=== PATIENT | male | born 1940 | race Caucasian/White ===

== ENCOUNTER → 2016-05-01 | Outpatient (CLI) | payer MEDICARE, OTHER | LOC: MW.CHPOD 08:00 | PROVIDERS: ATTEND Podiatrist Foot & Ankle Surgery | DX: R26.9 Unspecified abnormalities of gait and mobility (principal); M79.673 Pain in unspecified foot; B35.1 Tinea unguium; L60.0 Ingrowing nail | CPT/HCPCS: 11721; 99203 ==

== ENCOUNTER → 2016-07-03 | Outpatient (CLI) | payer MEDICARE, OTHER | LOC: MW.CHPOD 08:00 | PROVIDERS: ATTEND Podiatrist Foot & Ankle Surgery | DX: M79.673 Pain in unspecified foot (principal); M20.5X2 Other deformities of toe(s) (acquired), left foot; M20.5X1 Other deformities of toe(s) (acquired), right foot; M20.41 Other hammer toe(s) (acquired), right foot; B35.1 Tinea unguium; I99.9 Unspecified disorder of circulatory system; L60.0 Ingrowing nail | CPT/HCPCS: 11721; G0463 ==

== ENCOUNTER 2017-02-19 11:21 | Inpatient (IN) | payer MEDICARE, OTHER ==
[2017-02-19] MEDS ORDERED: Sodium Chloride 0.9% 1,000 ML IV SCH (11:30)
--- NOTE | 2017-02-19 11:36 | EDM.PDOC ---
ED HPI GENERAL MEDICAL PROBLEM - General Chief Complaint: Respiratory Problem Stated Complaint: SHORTNESS OF BREATH Time Seen by Provider: 02/19/17 11:26 - History of Present Illness INITIAL COMMENTS - FREE TEXT/NARRATIVE: HISTORY AND PHYSICAL: History of present illness: 76-year-old white male with a [id number] history of smoking presents with concern of shortness of breath and cough 6 weeks he said multiple clinic visits and has been treated with antibiotics and steroids with no significant improvement he denies chest pain he has had productive phlegm related to his cough. He does have history of coronary artery disease with 5 vessel CABG Review of systems: As per history of present illness and below otherwise all systems reviewed and negative. Past medical history: As per history of present illness and as reviewed below otherwise noncontributory. Surgical history: As per history of present illness and as reviewed below otherwise noncontributory. Social history: No reported history of drug or alcohol abuse. Family history: As per history of present illness and as reviewed below otherwise noncontributory. Physical exam: HEENT: Atraumatic, normocephalic, pupils reactive, negative for conjunctival pallor or scleral icterus, mucous membranes moist, throat clear, neck supple, nontender, trachea midline. Lungs: Diminished and coarse bilaterally breath sounds equal bilaterally, chest nontender. Heart: S1S2, regular, negative for clicks, rubs, or JVD. Abdomen: Soft, nondistended, nontender. Negative for masses or hepatosplenomegaly. Negative for costovertebral tenderness. Pelvis: Stable nontender. Genitourinary: Deferred. Rectal: Deferred. Extremities: Atraumatic, negative for cords or calf pain. Neurovascular unremarkable. Neuro: Awake, alert, oriented. Cranial nerves II through XII unremarkable. Cerebellum unremarkable. Motor and sensory unremarkable throughout. Exam nonfocal. Diagnostics: CBC CMP PT/INR troponin EKG chest x-ray BNP influenza screen blood culture 2 UA ABG Therapeutics: IV O2 monitor Impression: #1 dyspnea #2 rule out pneumonia #3 history of coronary artery disease Definitive disposition and diagnosis as appropriate pending reevaluation and review of above. - Related Data Allergies Allergy/AdvReac Type Severity Reaction Status Date / Time No Known Allergies Allergy Verified 02/19/17 11:34 Home Meds: Home Meds Aspirin [Ecotrin] 81 mg PO DAILY 11/15/14 [History] Citalopram [Celexa] 20 mg PO DAILY 11/15/14 [History] Losartan [Cozaar] 100 mg PO DAILY 11/15/14 [History] Simvastatin 80 mg PO BEDTIME 11/15/14 [History] Terazosin [Hytrin] 2 mg PO BEDTIME 11/15/14 [History] Metoprolol Tartrate [Lopressor] 100 mg PO BID 11/17/14 [History] Multivit-Min/FA/Lycopene/Lut [Centrum Silver Tablet] 1 tab PO DAILY 11/17/14 [ History] Amoxicillin [Take Home: Amoxicillin 500 MG, 2 Cap Pack] 1 packet PO ONETIME [History] Past Medical History HEENT History: Reports: Impaired Vision Cardiovascular History: Reports: Automatic Implantable Cardioverter Defibrillators, Bypass, Pacemaker Other Respiratory History: History of Pneumonia 10/2014 Gastrointestinal History: Reports: GERD Genitourinary History: Reports: None Musculoskeletal History: Reports: Fracture Other Musculoskeletal History: pelvis fractur Neurological History: Reports: None Psychiatric History: Reports: None Endocrine/Metabolic History: Reports: None Hematologic History: Reports: None Immunologic History: Reports: None Oncologic (Cancer) History: Reports: None Dermatologic History: Reports: None - Infectious Disease History Infectious Disease History: Reports: C-Difficile, Mumps - Past Surgical History Cardiovascular Surgical History: Reports: Pacer Social & Family History - Family History Family Medical History: Noncontributory - Tobacco Use Smoking Status *Q: Former Smoker Years of Tobacco use: 25 Used Tobacco, but Quit: No Second Hand Smoke Exposure: No - Alcohol Use Days Per Week of Alcohol Use: 7 Number of Drinks Per Day: 1 Total Drinks Per Week: 7 - Recreational Drug Use Recreational Drug Use: No ED ROS GENERAL - Review of Systems Review Of Systems: ROS reveals no pertinent complaints other than HPI. ED EXAM, GENERAL - Physical Exam Exam: See Below (See dictation) Course - Vital Signs Last Recorded V/S: Last Vital Signs Temp 36.2 C 02/19/17 11:31 Pulse 72 02/19/17 12:18 Resp 20 02/19/17 12:48 BP 98/59 L 02/19/17 12:48 Pulse Ox 95 02/19/17 12:48 - Orders/Labs/Meds Orders: Active Orders 24 hr Category Date Time Status Cardiac Monitoring [RC] . DIRECTED Care 02/19/17 12:26 Active EKG Documentation Completion [RC] STAT Care 02/19/17 11:26 Active RT Aerosol Therapy [RC] ASDIRECTED Care 02/19/17 12:26 Active Chest 1V Frontal [CR] Stat Exams 02/19/17 11:27 Taken CULTURE BLOOD [BC] Stat Lab 02/19/17 11:45 Received CULTURE BLOOD [BC] Stat Lab 02/19/17 11:59 Received UA W/MICROSCOPIC [URIN] Stat Lab 02/19/17 11:26 Uncollected Levofloxacin/Dextrose 5%-Water [Levaquin in D5W 750 MG/ Med 02/19/17 12:49 Active 150 ML] 750 mg Premix Bag 1 bag IV ONETIME Sodium Chloride 0.9% [Normal Saline] 1,000 ml Med 02/19/17 11:30 Active IV STAT Blood Culture x2 Reflex Set [OM.PC] Stat Oth 02/19/17 11:26 Ordered Medication Orders Sodium Chloride (Normal Saline) 1,000 mls @ 125 mls/hr IV STAT STALIN Last Infusion: 02/19/17 12:52 Dose: 25 mls/hr Infusion: 02/19/17 12:28 Dose: 999 mls/hr Admin: 02/19/17 12:18 Dose: 125 mls/hr Levofloxacin/Dextrose 750 mg/ (Premix) 150 mls @ 100 mls/hr IV ONETIME ONE Stop: 02/19/17 14:18 Last Admin: 02/19/17 12:59 Dose: 100 mls/hr Labs: Laboratory Tests 02/19/17 02/19/17 02/19/17 Range/Units 11:45 11:45 11:45 WBC 15.68 H (4.0-11.0) K/uL RBC 5.41 (4.50-5.90) M/uL Hgb 16.8 (13.0-17.0) g/dL Hct 47.4 (38.0-50.0) % MCV 87.6 (80.0-98.0) fL MCH 31.1 (27.0-32.0) pg MCHC 35.4 (31.0-37.0) g/dL RDW Std Deviation 40.9 (28.0-62.0) fl RDW Coeff of [place] 13 (11.0-15.0) % Plt Count 154 (150-400) K/uL MPV 11.70 (7.40-12.00) fL Neut % (Auto) 78.9 (48.0-80.0) % Lymph % (Auto) 11.5 L (16.0-40.0) % [place] % (Auto) 9.4 (0.0-15.0) % Eos % (Auto) 0.1 (0.0-7.0) % Baso % (Auto) 0.1 (0.0-1.5) % Neut # (Auto) 12.4 H (1.4-5.7) K/uL Lymph # (Auto) 1.8 (0.6-2.4) K/uL [place] # (Auto) 1.5 H (0.0-0.8) K/uL Eos # (Auto) 0.0 (0.0-0.7) K/uL Baso # (Auto) 0.0 (0.0-0.1) K/uL Nucleated RBC % 0.0 /100WBC Nucleated RBCs # 0 K/uL INR 1.05 (0.86-1.11) ABG pH (7.35-7.45) ABG pCO2 (35-45) mmHG ABG pO2 (75-100) mmHG ABG HCO3 (22-26) mEq/L ABG Total CO2 ABG Base Excess (-2.0-2.0) Lactate (0.20-2.00) mmol/L Sodium 138 (136-146) mmol/L Potassium 4.0 (3.5-5.1) mmol/L Chloride 102 (98-110) mmol/L Carbon Dioxide 25 (21-31) mmol/L BUN 15 (6.0-23.0) mg/dL Creatinine 1.0 (0.6-1.5) mg/dL Est Cr Clr Drug Dosing 56.92 mL/min Estimated GFR (MDRD) > 60.0 ml/min Glucose 127 H (60-110) mg/dL Calcium 9.5 (8.8-10.8) mg/dL Total Bilirubin 1.5 (0.1-1.5) mg/dL AST 17 (5-40) IU/L ALT 19 (8-54) IU/L Alkaline Phosphatase 130 (40-150) Troponin I < 0.10 (0.0-0.29) NG/ML B-Natriuretic Peptide (<100) PG/ML Total Protein 6.9 (6.0-8.0) g/dL Albumin 3.7 (3.4-4.8) g/dL Globulin 3.2 (2.0-3.5) g/dL Albumin/Globulin Ratio 1.2 L (1.3-2.8) 02/19/17 02/19/17 02/19/17 Range/Units 11:45 11:54 11:54 WBC (4.0-11.0) K/uL RBC (4.50-5.90) M/uL Hgb (13.0-17.0) g/dL Hct (38.0-50.0) % MCV (80.0-98.0) fL MCH (27.0-32.0) pg MCHC (31.0-37.0) g/dL RDW Std Deviation (28.0-62.0) fl RDW Coeff of [place] (11.0-15.0) % Plt Count (150-400) K/uL MPV (7.40-12.00) fL Neut % (Auto) (48.0-80.0) % Lymph % (Auto) (16.0-40.0) % [place] % (Auto) (0.0-15.0) % Eos % (Auto) (0.0-7.0) % Baso % (Auto) (0.0-1.5) % Neut # (Auto) (1.4-5.7) K/uL Lymph # (Auto) (0.6-2.4) K/uL [place] # (Auto) (0.0-0.8) K/uL Eos # (Auto) (0.0-0.7) K/uL Baso # (Auto) (0.0-0.1) K/uL Nucleated RBC % /100WBC Nucleated RBCs # K/uL INR (0.86-1.11) ABG pH 7.481 H (7.35-7.45) ABG pCO2 37 (35-45) mmHG ABG pO2 26 L* (75-100) mmHG ABG HCO3 28 H (22-26) mEq/L ABG Total CO2 24.1 ABG Base Excess 4.3 H (-2.0-2.0) Lactate 1.4 (0.20-2.00) mmol/L Sodium (136-146) mmol/L Potassium (3.5-5.1) mmol/L Chloride (98-110) mmol/L Carbon Dioxide (21-31) mmol/L BUN (6.0-23.0) mg/dL Creatinine (0.6-1.5) mg/dL Est Cr Clr Drug Dosing mL/min Estimated GFR (MDRD) ml/min Glucose (60-110) mg/dL Calcium (8.8-10.8) mg/dL Total Bilirubin (0.1-1.5) mg/dL AST (5-40) IU/L ALT (8-54) IU/L Alkaline Phosphatase (40-150) Troponin I (0.0-0.29) NG/ML B-Natriuretic Peptide 896 H (<100) PG/ML Total Protein (6.0-8.0) g/dL Albumin (3.4-4.8) g/dL Globulin (2.0-3.5) g/dL Albumin/Globulin Ratio (1.3-2.8) Meds: Medications Generic Name Dose Route Start Last Admin Trade Name Freq PRN Reason Stop Dose Admin Sodium Chloride 1,000 mls @ 125 mls/hr 02/19/17 11:30 02/19/17 12:52 Normal Saline IV 25 mls/hr STAT STALIN Infusion Levofloxacin/Dextrose 750 mg/ 150 mls @ 100 mls/hr 02/19/17 12:49 02/19/17 12 :59 Premix IV 02/19/17 14:18 100 mls/hr ONETIME ONE Administration Discontinued Medications Generic Name Dose Route Start Last Admin Trade Name Freq PRN Reason Stop Dose Admin Albuterol/Ipratropium 3 ml 02/19/17 12:26 02/19/17 12:38 Duoneb 3.0-0.5 Mg/3 Ml NEB 02/19/17 12:27 3 ml ONETIME ONE Administration Departure - Departure Time of Disposition: 13:08 Disposition: Admitted As Inpatient 64 Condition: Good Clinical Impression: Hypoxemia Pneumonia Qualifiers: Pneumonia type: due to Haemophilus influenzae Laterality: unspecified laterality Lung location: unspecified part of lung Qualified Code(s): J14 - Pneumonia due to Hemophilus influenzae - Discharge Information Referrals: Jim Mandel MD [Primary Care Provider] - Forms: ED Department Discharge - My Orders Last 24 Hours: My Active Orders 02/19/17 11:26 EKG Documentation Completion [RC] STAT UA W/MICROSCOPIC [URIN] Stat Blood Culture x2 Reflex Set [OM.PC] Stat 02/19/17 11:27 Chest 1V Frontal [CR] Stat 02/19/17 11:30 Sodium Chloride 0.9% [Normal Saline] 1,000 ml IV STAT 02/19/17 11:45 CULTURE BLOOD [BC] Stat 02/19/17 11:59 CULTURE BLOOD [BC] Stat 02/19/17 12:26 Cardiac Monitoring [RC] . DIRECTED RT Aerosol Therapy [RC] ASDIRECTED 02/19/17 12:49 Levofloxacin/Dextrose 5%-Water [Levaquin in D5W 750 MG/150 ML] 750 mg Premix Bag 1 bag IV ONETIME - Assessment/Plan Last 24 Hours: My Active Orders 02/19/17 11:26 EKG Documentation Completion [RC] STAT UA W/MICROSCOPIC [URIN] Stat Blood Culture x2 Reflex Set [OM.PC] Stat 02/19/17 11:27 Chest 1V Frontal [CR] Stat 02/19/17 11:30 Sodium Chloride 0.9% [Normal Saline] 1,000 ml IV STAT 02/19/17 11:45 CULTURE BLOOD [BC] Stat 02/19/17 11:59 CULTURE BLOOD [BC] Stat 02/19/17 12:26 Cardiac Monitoring [RC] . DIRECTED RT Aerosol Therapy [RC] ASDIRECTED 02/19/17 12:49 Levofloxacin/Dextrose 5%-Water [Levaquin in D5W 750 MG/150 ML] 750 mg Premix Bag 1 bag IV ONETIME
[2017-02-19] MEDS ORDERED: Albuterol/Ipratropium 3.0-0.5 MG/3 ML Neb Soln NEB ONE (12:26)
[2017-02-19 12:38] LABS: CHLORIDE,CL 102 mmol/L (98-110); SODIUM,NA 138 mmol/L (136-146)
[2017-02-19] MEDS ORDERED: Levofloxacin/Dextrose 5%-Water 750 MG in Premix Bag 1 BAG IV ONE (12:49)
--- NOTE | 2017-02-19 14:25 | CR ---
EXAM DATE: 02/19/17 PATIENT'S AGE: 76 Patient: SHANNON MAYS Facility: [place], [place] Site . Site : [id number] Study: XRay Chest [id number] 12:23:44 PM Ordering Physician: Mauricio Uribe Final Report: INDICATION: Chest pain; shortness of breath; cough for the last 6 weeks. Comparison: Chest radiograph 01/20/2017. Technique: Single portable AP chest. Findings: Stable cardiomegaly. Implanted cardiac defibrillator in place. Infiltrates right lower lobe. No CHF or pneumothorax. No evidence of pleural effusion. Impression: Infiltrates right lower lobe more prominent when compared to 01/20/2017. Dictated by Beatrice Kumar MD @ Feb 19 2017 12:46PM (Electronic Signature) Report Signed by Proxy. [facility] CENTERShlomo
--- NOTE | 2017-02-19 14:28 | PCM.HP ---
H&P History of Present Illness - General Date of Service: 02/19/17 Admit Problem/Dx: Admission Diagnosis/Problem Admission Diagnosis/Problem Hypoxemia Source of Information: Patient History Limitations: Reports: No Limitations - History of Present Illness Initial Comments - Free Text/Narative: 76-year-old male presenting to emergency department with chief complaint of cough and shortness of breath 2 days with PMH of CAD, CABGx5 2013 with pacer, CHF, hypertension, and hyperlipidemia Patient states that his cough initially began approximate 6 weeks ago. He saw a nurse practitioner who placed him on doxycycline. States that he did not improve significantly. He then saw the same nurse practitioner again and was placed on another antibiotic plus prednisone and albuterol. This seemed to improve his symptoms somewhat but then on 02/17/17 his cough and shortness breath became worse again with associated chills and diaphoresis. This has increasingly gotten worse until he visited the emergency room today. Reports productive cough with yellow-shivani green sputum production. States that he was on home oxygen up until 3 months ago. He was on home oxygen for approximately 2 years secondary to a pneumonia. He has never been diagnosed with COPD but has a 30+ pack year smoking history. He quit 14 years ago. He denies any chest pain, palpitations, increased fluid retention, nausea, vomiting, diarrhea, syncopal episodes, or focal neurologic deficits. In the emergency department he was found to have leukocytosis of 15 K, CMP and lactate unremarkable, chest x-ray revealed a right lower lobe infiltrate. He was initially mildly hypotensive with a blood pressure of 86/45 which resolved with 1 L NS. Hypoxic requiring 2 L n/c to 94%. Influenza swab was negative. Patient's last echocardiogram for a CHF was approximately 2 years ago. He is on aspirin daily. Patient was admitted for similar symptoms in 10/2014. Patient admitted to inpatient for community-acquired pneumonia. - Related Data Allergies/Adverse Reactions: Allergies Allergy/AdvReac Type Severity Reaction Status Date / Time No Known Allergies Allergy Verified 02/19/17 14:52 Home Medications: Home Meds Aspirin [Ecotrin] 81 mg PO DAILY 11/15/14 [History] Citalopram [Celexa] 20 mg PO DAILY 11/15/14 [History] Losartan [Cozaar] 100 mg PO DAILY 11/15/14 [History] Simvastatin 80 mg PO BEDTIME 11/15/14 [History] Terazosin [Hytrin] 2 mg PO BEDTIME 11/15/14 [History] Metoprolol Tartrate [Lopressor] 100 mg PO BID 11/17/14 [History] Multivit-Min/FA/Lycopene/Lut [Centrum Silver Tablet] 1 tab PO DAILY 11/17/14 [ History] Amoxicillin [Take Home: Amoxicillin 500 MG, 2 Cap Pack] 1 packet PO ONETIME [History] Past Medical History HEENT History: Reports: Impaired Vision Cardiovascular History: Reports: Automatic Implantable Cardioverter Defibrillators, Bypass, Pacemaker Other Respiratory History: History of Pneumonia 10/2014 Gastrointestinal History: Reports: GERD Genitourinary History: Reports: None Musculoskeletal History: Reports: Fracture Other Musculoskeletal History: pelvis fractur Neurological History: Reports: None Psychiatric History: Reports: None Endocrine/Metabolic History: Reports: None Hematologic History: Reports: None Immunologic History: Reports: None Oncologic (Cancer) History: Reports: None Dermatologic History: Reports: None - Infectious Disease History Infectious Disease History: Reports: C-Difficile, Mumps - Past Surgical History Cardiovascular Surgical History: Reports: Pacer Social & Family History - Family History Family Medical History: Noncontributory - Tobacco Use Smoking Status *Q: Former Smoker Years of Tobacco use: 25 Used Tobacco, but Quit: No Month Tobacco Last Used: 13 years ago quit Second Hand Smoke Exposure: No - Caffeine Use Caffeine Use: Reports: Coffee, Soda - Alcohol Use Days Per Week of Alcohol Use: 7 Number of Drinks Per Day: 1 Total Drinks Per Week: 7 - Recreational Drug Use Recreational Drug Use: No H&P Review of Systems - Review of Systems: Review Of Systems: See Below Exam - Exam Exam: See Below - Vital Signs Vital Signs: Last Vital Signs Temp 97.1 F 02/19/17 11:31 Pulse 72 02/19/17 12:18 Resp 21 H 02/19/17 13:00 BP 98/59 L 02/19/17 13:00 Pulse Ox 95 02/19/17 13:00 Weight: 74.6 kg - Exam Quality Assessment: Supplemental Oxygen, DVT Prophylaxis General: Alert, Oriented, Cooperative HEENT: Conjunctiva Clear, EACs Clear, EOMI, Hearing Intact, Mucosa Moist & [place] , Nares Patent, Normal Nasal Septum, Posterior Pharynx Clear, PERRLA Neck: Supple, Trachea Midline. No: JVD Lungs: Decreased Breath Sounds, Crackles, Rales, Wheezing Cardiovascular: Regular Rate, Regular Rhythm, Normal S1, Normal S2 GI/Abdominal Exam: Normal Bowel Sounds, Soft, Non-Tender, No Organomegaly, No Distention Back Exam: Normal Inspection Extremities: Normal Inspection, Normal Range of Motion, Non-Tender, No Pedal Edema, Normal Capillary Refill Peripheral Pulses: 2+: Radial (L), Radial (R), Posterior Tibial (L), Posterior Tibial (R), Dorsalis Pedis (L), Dorsalis Pedis (R) Skin: Warm, Dry, Intact Neurological: Cranial Nerves Intact Neuro Extensive - Mental Status: Alert, Oriented x3, Normal Mood/Affect, Normal Cognition Neuro Extensive - Motor, Sensory, Reflexes: CN II-XII Intact Psychiatric: Alert, Normal Affect, Normal Mood - Patient Data Result Diagrams: 02/19/17 11:45 02/19/17 11:45 *Q Meaningful Use (ADM) - VTE *Q VTE Criteria *Q: - Stroke *Q Stroke Criteria *Q: - AMI *Q AMI Criteria *Q: - Problem List (1) S/P CABG x 5 SNOMED Code(s): 817169778 ICD Code: Z95.1 - PRESENCE OF AORTOCORONARY BYPASS GRAFT Status: Chronic Priority: Medium Current Visit: Yes (2) Hypoxemia SNOMED Code(s): 549059490 ICD Code: R09.02 - HYPOXEMIA Status: Acute Priority: High Current Visit : Yes (3) Pneumonia SNOMED Code(s): 198043096 ICD Code: J18.9 - PNEUMONIA, UNSPECIFIED ORGANISM Status: Acute Priority : High Current Visit: Yes Qualifiers: Pneumonia type: due to unspecified organism Laterality: right Lung location: lower lobe of lung Qualified Code(s): J18.1 - Lobar pneumonia, unspecified organism (4) CHF (congestive heart failure) SNOMED Code(s): 24891530 ICD Code: I50.9 - HEART FAILURE, UNSPECIFIED Status: Chronic Priority: High Current Visit: No Qualifiers: Congestive heart failure type: unspecified congestive heart failure type Congestive heart failure chronicity: unspecified congestive heart failure chronicity Qualified Code(s): I50.9 - Heart failure, unspecified (5) Hypertension SNOMED Code(s): 43192628 ICD Code: I10 - ESSENTIAL (PRIMARY) HYPERTENSION Status: Chronic Priority : Medium Current Visit: Yes Qualifiers: Hypertension type: essential hypertension Qualified Code(s): I10 - Essential (primary) hypertension Problem List Initiated/Reviewed/Updated: Yes Orders Last 24hrs: Active Orders 24 hr Category Date Time Status CULTURE SPUTUM + SMEAR [RM] Stat Lab 02/19/17 13:58 Received Medication Orders Sodium Chloride (Normal Saline) 1,000 mls @ 125 mls/hr IV STAT STALIN Last Infusion: 02/19/17 12:52 Dose: 25 mls/hr Infusion: 02/19/17 12:28 Dose: 999 mls/hr Admin: 02/19/17 12:18 Dose: 125 mls/hr Assessment/Plan Comment:: 76 yo male admitted 02/19/17 for hypoxia secondary to RLL pneumonia with pmh of CHF, CABGx5, Htn, hyperlipidemia and former 30+ pack yr smoker. Pneumonia: RLL, secondary to recent multiple antibiotic use will treat with Zosyn, Levo, and Vanc. Blood cultures taken in ED, Duo-nebs q 4hrs. May need steroids but hold for now unless no improvement. CHF: Vol. depleted by exam, Will give IVF boluses now and watch carefully for overload, strict I&O, daily wt., Telemetry, Last echo 2 yrs ago will get new. CABGx5/CAD: Stable now, Telemetery, monitor, resume home meds when BP improved. Htn: Hypotensive in ED most likely secondary to dehydration. Hold home meds and monitor. Resume when normotensive. VTE proph: Heparin, SCD Dispo: 2-3 days pending improvement.
[2017-02-19] MEDS ORDERED: Ondansetron 4 MG Tab.DIS PO PRN (14:57)
[2017-02-19] MEDS ORDERED: Sodium Chloride 0.9% 500 ML IV ONE (15:05)
[2017-02-19] MEDS: Heparin Sodium 5,000 Units/ML Vial SUBCUT SCH ×2 (15:42→23:45)
[2017-02-19] MEDS: Piperacillin/Tazobactam 4.5 GM in Sodium Chloride 0.9% 100 ML IV SCH ×2 (15:42→20:15)
[2017-02-19] MEDS ORDERED: Patient's Own Medication 1 Each PO SCH (16:00)
[2017-02-19] MEDS: Simvastatin 40 MG Tab PO SCH (20:14)
[2017-02-20] MEDS: Piperacillin/Tazobactam 4.5 GM in Sodium Chloride 0.9% 100 ML IV SCH ×4 (03:13→20:58)
[2017-02-20] MEDS: Albuterol/Ipratropium 3.0-0.5 MG/3 ML Neb Soln NEB PRN ×2 (04:39→18:00)
[2017-02-20 06:08] LABS: CHLORIDE,CL 105 mmol/L (98-110); SODIUM,NA 140 mmol/L (136-146)
[2017-02-20] MEDS: Heparin Sodium 5,000 Units/ML Vial SUBCUT SCH ×3 (06:10→22:12)
[2017-02-20] MEDS: Citalopram 20 MG Tab PO SCH (08:31)
[2017-02-20] MEDS: MEXILETINE 150 MG PO SCH (08:33)
[2017-02-20] MEDS ORDERED: Aspirin 325 MG Tab.EC PO SCH (09:00)
[2017-02-20] MEDS: Aspirin 81 MG Tab.EC PO SCH (09:03)
[2017-02-20] MEDS: Levofloxacin/Dextrose 5%-Water 750 MG in Premix Bag 1 BAG IV SCH (11:24)
--- NOTE | 2017-02-20 11:33 | PCM.PN ---
- Review of Systems Systems Review Comment:: feeling better. - Patient Data Vitals - Most Recent: Last Vital Signs Temp 36.3 C 02/20/17 08:00 Pulse 62 02/20/17 08:00 Resp 20 02/20/17 08:00 BP 102/57 L 02/20/17 08:00 Pulse Ox 96 02/20/17 08:00 Weight - Most Recent: 78.5 kg I&O - Last 24 Hours: Intake & Output 02/19/17 02/20/17 02/20/17 22:59 06:59 14:59 Intake Total 825 1150 Output Total 50 750 Balance 775 400 Lab Results Last 24 Hours: Laboratory Results - last 24 hr 02/19/17 02/20/17 02/20/17 Range/Units 14:20 04:59 04:59 WBC 10.64 (4.0-11.0) K/uL RBC 4.63 (4.50-5.90) M/uL Hgb 14.1 (13.0-17.0) g/dL Hct 40.8 (38.0-50.0) % MCV 88.1 (80.0-98.0) fL MCH 30.5 (27.0-32.0) pg MCHC 34.6 (31.0-37.0) g/dL RDW Std Deviation 41.3 (28.0-62.0) fl RDW Coeff of Alva 13 (11.0-15.0) % Plt Count 119 L (150-400) K/uL MPV 11.30 (7.40-12.00) fL Nucleated RBC % 0.0 /100WBC Nucleated RBCs # 0 K/uL Sodium 140 (136-146) mmol/L Potassium 4.0 (3.5-5.1) mmol/L Chloride 105 (98-110) mmol/L Carbon Dioxide 27 (21-31) mmol/L BUN 13 (6.0-23.0) mg/dL Creatinine 0.9 (0.6-1.5) mg/dL Est Cr Clr Drug Dosing 63.09 mL/min Estimated GFR (MDRD) > 60.0 ml/min Glucose 116 H (60-110) mg/dL Calcium 8.8 (8.8-10.8) mg/dL Magnesium 1.6 (1.5-2.3) mEq/L Total Bilirubin 1.2 (0.1-1.5) mg/dL AST 14 (5-40) IU/L ALT 15 (8-54) IU/L Alkaline Phosphatase 135 (40-150) Total Protein 5.5 L (6.0-8.0) g/dL Albumin 3.0 L (3.4-4.8) g/dL Globulin 2.5 (2.0-3.5) g/dL Albumin/Globulin Ratio 1.2 L (1.3-2.8) Urine Color DARK YELLOW Urine Appearance CLEAR Urine pH 6.0 (5.0-8.0) Ur Specific [place] >= 1.030 (1.001-1.035) Urine Protein NEGATIVE (NEGATIVE) mg/dL Urine Glucose (UA) NEGATIVE (NEGATIVE) mg/dL Urine Ketones NEGATIVE (NEGATIVE) mg/dL Urine Occult Blood SMALL H (NEGATIVE) Urine Nitrite NEGATIVE (NEGATIVE) Urine Bilirubin MODERATE H (NEGATIVE) Urine Ictotest NEGATIVE Urine Urobilinogen 1.0 (<2.0) EU/dL Ur Leukocyte Esterase TRACE (NEGATIVE) Urine RBC 3-6 (0-2/HPF) Urine WBC 4-8 (0-5/HPF) Ur Epithelial Cells OCCASIONAL (NONE-FEW) Urine Bacteria RARE (NEGATIVE) Urine Mucus MODERATE (NONE-MOD) Urine Yeast RARE Mahad Results Last 24 Hours: Microbiology 02/19/17 13:58 Gram Stain - Preliminary Sputum - Expectorated Med Orders - Current: Current Medications Acetaminophen (Tylenol) 650 mg PO Q4H PRN PRN Reason: Pain (Mild 1-3)/fever Albuterol/Ipratropium (Duoneb 3.0-0.5 Mg/3 Ml) 3 ml NEB Q4HRRT PRN PRN Reason: Shortness Of Breath/wheezing Last Admin: 02/20/17 04:39 Dose: 3 ml Aspirin (Halfprin) 81 mg PO DAILY [facility] Last Admin: 02/20/17 09:03 Dose: 81 mg Citalopram Hydrobromide (Celexa) 20 mg PO DAILY [facility] Last Admin: 02/20/17 08:31 Dose: 20 mg Heparin Sodium (Porcine) (Heparin Sodium) 5,000 units SUBCUT Q8H [facility] Last Admin: 02/20/17 06:10 Dose: 5,000 units Levofloxacin/Dextrose 750 mg/ (Premix) 150 mls @ 100 mls/hr IV Q24H [facility] Last Admin: 02/20/17 11:24 Dose: 100 mls/hr Piperacillin Sod/Tazobactam (Sod 4.5 gm/ Sodium Chloride) 100 mls @ 100 mls/hr IV Q6H [facility] Last Admin: 02/20/17 08:33 Dose: 100 mls/hr Vancomycin HCl 1.25 gm/ Sodium (Chloride) 250 mls @ 166.667 mls/hr IV Q12H [facility] Last Admin: 02/20/17 04:35 Dose: 166.667 mls/hr Ondansetron HCl (Zofran Odt) 4 mg PO Q4H PRN PRN Reason: nausea, able to take PO Mexiletine 150 Mg (Capsule*Pt Own Med*) 1 each PO DAILY@0900 [facility] Last Admin: 02/20/17 08:33 Dose: 1 each Simvastatin (Zocor) 80 mg PO BEDTIME [facility] Last Admin: 02/19/17 20:14 Dose: 80 mg Vancomycin HCl (Pharmacy To Dose - Vancomycin) 1 dose .XX ASDIRECTED [facility] Discontinued Medications Albuterol/Ipratropium (Duoneb 3.0-0.5 Mg/3 Ml) 3 ml NEB ONETIME ONE Stop: 02/19/17 12:27 Last Admin: 02/19/17 12:38 Dose: 3 ml Aspirin (Ecotrin) 81 mg PO DAILY [facility] Sodium Chloride (Normal Saline) 1,000 mls @ 125 mls/hr IV STAT [facility] Last Infusion: 02/19/17 12:52 Dose: 25 mls/hr Levofloxacin/Dextrose 750 mg/ (Premix) 150 mls @ 100 mls/hr IV ONETIME ONE Stop: 02/19/17 14:18 Last Admin: 02/19/17 12:59 Dose: 100 mls/hr Sodium Chloride (Normal Saline) 500 mls @ 125 mls/hr IV STAT ONE Stop: 02/19/17 19:04 Last Admin: 02/19/17 15:43 Dose: 125 mls/hr Patient Own Medication (Ptom) 1 each PO TID [facility] Last Admin: 02/19/17 16:35 Dose: Not Given - Exam General: Alert, Oriented Lungs: Normal Respiratory Effort, Rhonchi (right lung) Cardiovascular: Regular Rate, Regular Rhythm GI/Abdominal Exam: Soft, Non-Tender Skin: Warm, Dry, Intact Neurological: No New Focal Deficit - Problem List Review Problem List Initiated/Reviewed/Updated: Yes - Plan Plan:: 76 yo male admitted for RLL pneumonia that failed outpatient management. Pneumonia: continue Zosyn, Levaquin, and Vancomycin. Blood cultures taken in ED , Duo-nebs q 4hrs. CHF: stable CABGx5/CAD: Stable Htn: Holding home meds due to hypotension on admission, normotensive now. VTE proph: Heparin, SCD Dispo: 2-3 days pending improvement.
[2017-02-20] MEDS: Simvastatin 40 MG Tab PO SCH (20:58)
[2017-02-20] MEDS: Benzonatate 100 MG Cap PO PRN (20:58)
[2017-02-21] MEDS: Benzonatate 100 MG Cap PO PRN ×2 (02:31→20:22)
[2017-02-21] MEDS: Piperacillin/Tazobactam 4.5 GM in Sodium Chloride 0.9% 100 ML IV SCH ×4 (02:32→20:22)
[2017-02-21 05:04] LABS: CHLORIDE,CL 106 mmol/L (98-110); SODIUM,NA 139 mmol/L (136-146)
[2017-02-21] MEDS: Heparin Sodium 5,000 Units/ML Vial SUBCUT SCH ×3 (06:28→23:10)
[2017-02-21] MEDS: Aspirin 81 MG Tab.EC PO SCH (08:14)
[2017-02-21] MEDS: Citalopram 20 MG Tab PO SCH (08:14)
[2017-02-21] MEDS: MEXILETINE 150 MG PO SCH (08:16)
--- NOTE | 2017-02-21 08:30 | PCM.PN ---
- General Info Admission Dx/Problem (Free Text): No overnight events. Patient had minimal pain at admission but he states it continues to improve. He is tolerating clear liquid diet. He is passing gas. He complains of diarrhea and states he had 8 watery stools yesterday and last night. No other complaints. - Patient Data Vitals - Most Recent: Last Vital Signs Temp 36.6 C 02/21/17 08:00 Pulse 86 02/21/17 08:00 Resp 18 02/21/17 08:00 BP 141/64 H 02/21/17 08:00 Pulse Ox 91 L 02/21/17 08:00 Weight - Most Recent: 78 kg I&O - Last 24 Hours: Intake & Output 02/20/17 02/21/17 02/21/17 22:59 06:59 14:59 Intake Total 688 1090 Output Total 625 520 Balance 63 570 Lab Results Last 24 Hours: Laboratory Results - last 24 hr 02/21/17 02/21/17 02/21/17 Range/Units 04:30 04:30 04:30 WBC 7.83 (4.0-11.0) K/uL RBC 4.37 L (4.50-5.90) M/uL Hgb 13.3 (13.0-17.0) g/dL Hct 38.7 (38.0-50.0) % MCV 88.6 (80.0-98.0) fL MCH 30.4 (27.0-32.0) pg MCHC 34.4 (31.0-37.0) g/dL RDW Std Deviation 41.4 (28.0-62.0) fl RDW Coeff of Alva 13 (11.0-15.0) % Plt Count 108 L (150-400) K/uL MPV 11.00 (7.40-12.00) fL Nucleated RBC % 0.0 /100WBC Nucleated RBCs # 0 K/uL Sodium 139 (136-146) mmol/L Potassium 3.9 (3.5-5.1) mmol/L Chloride 106 (98-110) mmol/L Carbon Dioxide 26 (21-31) mmol/L BUN 9 (6.0-23.0) mg/dL Creatinine 0.8 (0.6-1.5) mg/dL Est Cr Clr Drug Dosing 70.97 mL/min Estimated GFR (MDRD) > 60.0 ml/min Glucose 109 (60-110) mg/dL Calcium 8.4 L (8.8-10.8) mg/dL Total Bilirubin 0.9 (0.1-1.5) mg/dL AST 14 (5-40) IU/L ALT 16 (8-54) IU/L Alkaline Phosphatase 93 (40-150) Total Protein 4.8 L (6.0-8.0) g/dL Albumin 3.0 L (3.4-4.8) g/dL Globulin 1.8 L (2.0-3.5) g/dL Albumin/Globulin Ratio 1.7 (1.3-2.8) Vancomycin Trough 10.2 (5-15) ug/mL Med Orders - Current: Current Medications Acetaminophen (Tylenol) 650 mg PO Q4H PRN PRN Reason: Pain (Mild 1-3)/fever Albuterol/Ipratropium (Duoneb 3.0-0.5 Mg/3 Ml) 3 ml NEB Q4HRRT PRN PRN Reason: Shortness Of Breath/wheezing Last Admin: 02/20/17 18:00 Dose: 3 ml Aspirin (Halfprin) 81 mg PO DAILY [facility] Last Admin: 02/21/17 08:14 Dose: 81 mg Benzonatate (Tessalon Perles) 100 mg PO QID PRN PRN Reason: Cough Last Admin: 02/21/17 02:31 Dose: 100 mg Citalopram Hydrobromide (Celexa) 20 mg PO DAILY [facility] Last Admin: 02/21/17 08:14 Dose: 20 mg Heparin Sodium (Porcine) (Heparin Sodium) 5,000 units SUBCUT Q8H [facility] Last Admin: 02/21/17 06:28 Dose: 5,000 units Levofloxacin/Dextrose 750 mg/ (Premix) 150 mls @ 100 mls/hr IV Q24H [facility] Last Admin: 02/20/17 11:24 Dose: 100 mls/hr Piperacillin Sod/Tazobactam (Sod 4.5 gm/ Sodium Chloride) 100 mls @ 100 mls/hr IV Q6H [facility] Last Admin: 02/21/17 08:15 Dose: 100 mls/hr Vancomycin HCl 1.25 gm/ Sodium (Chloride) 250 mls @ 166.667 mls/hr IV Q12H [facility] Last Admin: 02/21/17 05:19 Dose: 166.667 mls/hr Ondansetron HCl (Zofran Odt) 4 mg PO Q4H PRN PRN Reason: nausea, able to take PO Mexiletine 150 Mg (Capsule*Pt Own Med*) 1 each PO DAILY@0900 [facility] Last Admin: 02/21/17 08:16 Dose: 1 each Simvastatin (Zocor) 80 mg PO BEDTIME [facility] Last Admin: 02/20/17 20:58 Dose: 80 mg Vancomycin HCl (Pharmacy To Dose - Vancomycin) 1 dose .XX ASDIRECTED [facility] Discontinued Medications Albuterol/Ipratropium (Duoneb 3.0-0.5 Mg/3 Ml) 3 ml NEB ONETIME ONE Stop: 02/19/17 12:27 Last Admin: 02/19/17 12:38 Dose: 3 ml Aspirin (Ecotrin) 81 mg PO DAILY [facility] Sodium Chloride (Normal Saline) 1,000 mls @ 125 mls/hr IV STAT [facility] Last Infusion: 02/19/17 12:52 Dose: 25 mls/hr Levofloxacin/Dextrose 750 mg/ (Premix) 150 mls @ 100 mls/hr IV ONETIME ONE Stop: 02/19/17 14:18 Last Admin: 02/19/17 12:59 Dose: 100 mls/hr Sodium Chloride (Normal Saline) 500 mls @ 125 mls/hr IV STAT ONE Stop: 02/19/17 19:04 Last Admin: 02/19/17 15:43 Dose: 125 mls/hr Patient Own Medication (Ptom) 1 each PO TID [facility] Last Admin: 02/19/17 16:35 Dose: Not Given - Plan Plan:: 76 yo male admitted for RLL pneumonia that failed outpatient management. Pneumonia: continue Zosyn, Levaquin, and Vancomycin. Blood cultures taken in ED , Duo-nebs q 4hrs. CHF: stable CABGx5/CAD: Stable Htn: Holding home meds due to hypotension on admission, normotensive now. VTE proph: Heparin, SCD Dispo: 2-3 days pending improvement.
--- NOTE | 2017-02-21 09:32 | PCM.PN ---
- General Info Date of Service: 02/21/17 Admission Dx/Problem (Free Text): Pneumonia, dyspnea Subjective Update: Reports not feeling well this morning, "I had a rough night, coughing all night long." Denies chest pain and SOB has improved but continues with ambulation. Coughing up clear to yellow phlegm. When he coughs, he has some pleuritic chest pain. No other concerns or abdominal pain. Functional Status: Reports: Pain Controlled, Tolerating Diet, Ambulating, Urinating - Review of Systems General: Reports: Malaise. Denies: Fever HEENT: Reports: No Symptoms. Denies: Headaches, Sinus Congestion, Sore Throat Pulmonary: Reports: Shortness of Breath (improving), Pleuritic Chest Pain (with cough ), Cough, Sputum (yellow to clear), Wheezing. Denies: Hemoptysis Cardiovascular: Reports: No Symptoms. Denies: Chest Pain, Palpitations, Edema Gastrointestinal: Denies: Abdominal Pain, Diarrhea, Nausea, Vomiting Genitourinary: Reports: No Symptoms. Denies: Dysuria, Frequency, Burning, Pain Neurological: Reports: No Symptoms. Denies: Confusion Psychiatric: Reports: No Symptoms. Denies: Confusion - Patient Data Vitals - Most Recent: Last Vital Signs Temp 97.8 F 02/21/17 08:00 Pulse 86 02/21/17 08:00 Resp 18 02/21/17 08:00 BP 141/64 H 02/21/17 08:00 Pulse Ox 91 L 02/21/17 08:00 Weight - Most Recent: 78 kg I&O - Last 24 Hours: Intake & Output 02/20/17 02/21/17 02/21/17 22:59 06:59 14:59 Intake Total 688 1090 100 Output Total 625 520 Balance 63 570 100 Lab Results Last 24 Hours: Laboratory Results - last 24 hr 02/21/17 02/21/17 02/21/17 Range/Units 04:30 04:30 04:30 WBC 7.83 (4.0-11.0) K/uL RBC 4.37 L (4.50-5.90) M/uL Hgb 13.3 (13.0-17.0) g/dL Hct 38.7 (38.0-50.0) % MCV 88.6 (80.0-98.0) fL MCH 30.4 (27.0-32.0) pg MCHC 34.4 (31.0-37.0) g/dL RDW Std Deviation 41.4 (28.0-62.0) fl RDW Coeff of Alva 13 (11.0-15.0) % Plt Count 108 L (150-400) K/uL MPV 11.00 (7.40-12.00) fL Nucleated RBC % 0.0 /100WBC Nucleated RBCs # 0 K/uL Sodium 139 (136-146) mmol/L Potassium 3.9 (3.5-5.1) mmol/L Chloride 106 (98-110) mmol/L Carbon Dioxide 26 (21-31) mmol/L BUN 9 (6.0-23.0) mg/dL Creatinine 0.8 (0.6-1.5) mg/dL Est Cr Clr Drug Dosing 70.97 mL/min Estimated GFR (MDRD) > 60.0 ml/min Glucose 109 (60-110) mg/dL Calcium 8.4 L (8.8-10.8) mg/dL Total Bilirubin 0.9 (0.1-1.5) mg/dL AST 14 (5-40) IU/L ALT 16 (8-54) IU/L Alkaline Phosphatase 93 (40-150) Total Protein 4.8 L (6.0-8.0) g/dL Albumin 3.0 L (3.4-4.8) g/dL Globulin 1.8 L (2.0-3.5) g/dL Albumin/Globulin Ratio 1.7 (1.3-2.8) Vancomycin Trough 10.2 (5-15) ug/mL Mahad Results Last 24 Hours: Microbiology 02/19/17 13:58 Gram Stain - Final Sputum - Expectorated Sputum Culture - Final Normal Respiratory Lupe Med Orders - Current: Current Medications Acetaminophen (Tylenol) 650 mg PO Q4H PRN PRN Reason: Pain (Mild 1-3)/fever Albuterol/Ipratropium (Duoneb 3.0-0.5 Mg/3 Ml) 3 ml NEB Q4HRRT PRN PRN Reason: Shortness Of Breath/wheezing Last Admin: 02/20/17 18:00 Dose: 3 ml Aspirin (Halfprin) 81 mg PO DAILY [facility] Last Admin: 02/21/17 08:14 Dose: 81 mg Benzonatate (Tessalon Perles) 100 mg PO QID PRN PRN Reason: Cough Last Admin: 02/21/17 02:31 Dose: 100 mg Citalopram Hydrobromide (Celexa) 20 mg PO DAILY [facility] Last Admin: 02/21/17 08:14 Dose: 20 mg Heparin Sodium (Porcine) (Heparin Sodium) 5,000 units SUBCUT Q8H [facility] Last Admin: 02/21/17 06:28 Dose: 5,000 units Levofloxacin/Dextrose 750 mg/ (Premix) 150 mls @ 100 mls/hr IV Q24H [facility] Last Admin: 02/20/17 11:24 Dose: 100 mls/hr Piperacillin Sod/Tazobactam (Sod 4.5 gm/ Sodium Chloride) 100 mls @ 100 mls/hr IV Q6H [facility] Last Admin: 02/21/17 08:15 Dose: 100 mls/hr Vancomycin HCl 1.25 gm/ Sodium (Chloride) 250 mls @ 166.667 mls/hr IV Q12H [facility] Last Admin: 02/21/17 05:19 Dose: 166.667 mls/hr Ondansetron HCl (Zofran Odt) 4 mg PO Q4H PRN PRN Reason: nausea, able to take PO Mexiletine 150 Mg (Capsule*Pt Own Med*) 1 each PO DAILY@0900 [facility] Last Admin: 02/21/17 08:16 Dose: 1 each Simvastatin (Zocor) 80 mg PO BEDTIME [facility] Last Admin: 02/20/17 20:58 Dose: 80 mg Vancomycin HCl (Pharmacy To Dose - Vancomycin) 1 dose .XX ASDIRECTED [facility] Discontinued Medications Albuterol/Ipratropium (Duoneb 3.0-0.5 Mg/3 Ml) 3 ml NEB ONETIME ONE Stop: 02/19/17 12:27 Last Admin: 02/19/17 12:38 Dose: 3 ml Aspirin (Ecotrin) 81 mg PO DAILY [facility] Sodium Chloride (Normal Saline) 1,000 mls @ 125 mls/hr IV STAT [facility] Last Infusion: 02/19/17 12:52 Dose: 25 mls/hr Levofloxacin/Dextrose 750 mg/ (Premix) 150 mls @ 100 mls/hr IV ONETIME ONE Stop: 02/19/17 14:18 Last Admin: 02/19/17 12:59 Dose: 100 mls/hr Sodium Chloride (Normal Saline) 500 mls @ 125 mls/hr IV STAT ONE Stop: 02/19/17 19:04 Last Admin: 02/19/17 15:43 Dose: 125 mls/hr Patient Own Medication (Ptom) 1 each PO TID [facility] Last Admin: 02/19/17 16:35 Dose: Not Given - Exam General: Alert, Oriented, Cooperative, No Acute Distress Neck: Supple Lungs: Normal Respiratory Effort, Decreased Breath Sounds Cardiovascular: Regular Rate, Regular Rhythm, No Murmurs GI/Abdominal Exam: Normal Bowel Sounds, Soft, Non-Tender, No Organomegaly, No Distention, No Abnormal Bruit, No Mass, Pelvis Stable Extremities: Normal Inspection, Normal Range of Motion, Non-Tender, No Pedal Edema, Normal Capillary Refill Neurological: No New Focal Deficit Psy/Mental Status: Alert, Normal Affect, Normal Mood - Problem List & Annotations (1) Hypoxemia SNOMED Code(s): 057460935 Code(s): R09.02 - HYPOXEMIA Status: Acute Priority: High Current Visit : Yes (2) Pneumonia SNOMED Code(s): 591233103 Code(s): J18.9 - PNEUMONIA, UNSPECIFIED ORGANISM Status: Acute Priority: High Current Visit: Yes Qualifiers: Pneumonia type: due to unspecified organism Laterality: right Lung location: lower lobe of lung Qualified Code(s): J18.1 - Lobar pneumonia, unspecified organism (3) Hypertension SNOMED Code(s): 99415546 Code(s): I10 - ESSENTIAL (PRIMARY) HYPERTENSION Status: Chronic Priority : Medium Current Visit: Yes Qualifiers: Hypertension type: essential hypertension Qualified Code(s): I10 - Essential (primary) hypertension (4) S/P CABG x 5 SNOMED Code(s): 908757805 Code(s): Z95.1 - PRESENCE OF AORTOCORONARY BYPASS GRAFT Status: Chronic Priority: Medium Current Visit: Yes (5) Failure of outpatient treatment SNOMED Code(s): 464652576 Code(s): Z78.9 - OTHER SPECIFIED HEALTH STATUS Status: Acute Current Visit: No (6) CHF (congestive heart failure) SNOMED Code(s): 14982760 Code(s): I50.9 - HEART FAILURE, UNSPECIFIED Status: Chronic Priority: High Current Visit: No Qualifiers: Congestive heart failure type: unspecified congestive heart failure type Congestive heart failure chronicity: unspecified congestive heart failure chronicity Qualified Code(s): I50.9 - Heart failure, unspecified - Problem List Review Problem List Initiated/Reviewed/Updated: Yes - My Orders Last 24 Hours: My Active Orders 02/21/17 09:30 Communication Order [RC] PRN - Plan Plan:: 76 yo male admitted for RLL pneumonia that failed outpatient management. 1. Pneumonia: Will de-escalate today and stop Vancomycin. Continue Zosyn and Levaquin. Blood cultures negative x 1 and sputum culture reveals normal respiratory lupe. Continue Duo-nebs q 4hrs. 6 months ago he was taken off oxygen and doing well at home. He may require oxygen again at home after this. Room air challenge ordered today. 2. CHF: stable No edema or chest pain. 3. CABGx5/CAD: Stable. No chest pain Continue ASA 4. Htn: normotensive now. Will slowly restart home medications. Will start Metoprolol 100 mg BID today and monitor. VTE proph: Heparin Dispo:possible DC in am.
[2017-02-21] MEDS: Levofloxacin/Dextrose 5%-Water 750 MG in Premix Bag 1 BAG IV SCH (11:12)
[2017-02-21] MEDS: Metoprolol Tartrate 50 MG Tab PO SCH ×2 (12:47→16:18)
--- NOTE | 2017-02-21 18:15 | ECHO ---
The echocardiogram report can be seen in this patient's EMR (electronic medical record) in the Report section. The report has also been scanned into PACS and can be seen there. LILI
[2017-02-21] MEDS: Simvastatin 40 MG Tab PO SCH (20:22)
[2017-02-21] MEDS: Acetaminophen 325 MG Tab PO PRN (20:22)
[2017-02-21] MEDS: Terazosin 1 MG Cap PO SCH (20:26)
[2017-02-22] MEDS: Benzonatate 100 MG Cap PO PRN (02:31)
[2017-02-22] MEDS: Piperacillin/Tazobactam 4.5 GM in Sodium Chloride 0.9% 100 ML IV SCH ×4 (02:31→21:29)
[2017-02-22 06:04] LABS: CHLORIDE,CL 108 mmol/L (98-110); SODIUM,NA 142 mmol/L (136-146)
[2017-02-22] MEDS: Heparin Sodium 5,000 Units/ML Vial SUBCUT SCH ×3 (06:16→23:19)
[2017-02-22] MEDS: Acetaminophen 325 MG Tab PO PRN (06:21)
[2017-02-22] MEDS: Metoprolol Tartrate 50 MG Tab PO SCH ×2 (08:53→17:12)
[2017-02-22] MEDS: Aspirin 81 MG Tab.EC PO SCH (08:54)
[2017-02-22] MEDS: Citalopram 20 MG Tab PO SCH (08:54)
[2017-02-22] MEDS: MEXILETINE 150 MG PO SCH (08:55)
[2017-02-22] MEDS: Levofloxacin/Dextrose 5%-Water 750 MG in Premix Bag 1 BAG IV SCH (11:20)
--- NOTE | 2017-02-22 12:21 | PCM.PN ---
- Review of Systems Systems Review Comment:: reports coughing fit last night - Patient Data Vitals - Most Recent: Last Vital Signs Temp 36.1 C 02/22/17 12:00 Pulse 73 02/22/17 12:00 Resp 20 02/22/17 12:00 BP 110/73 02/22/17 12:00 Pulse Ox 95 02/22/17 12:00 Weight - Most Recent: 78 kg I&O - Last 24 Hours: Intake & Output 02/21/17 02/22/17 02/22/17 22:59 06:59 14:59 Intake Total 670 500 100 Output Total 300 400 Balance 370 100 100 Lab Results Last 24 Hours: Laboratory Results - last 24 hr 02/22/17 02/22/17 Range/Units 04:49 04:49 WBC 8.05 (4.0-11.0) K/uL RBC 4.49 L (4.50-5.90) M/uL Hgb 13.7 (13.0-17.0) g/dL Hct 40.1 (38.0-50.0) % MCV 89.3 (80.0-98.0) fL MCH 30.5 (27.0-32.0) pg MCHC 34.2 (31.0-37.0) g/dL RDW Std Deviation 42.8 (28.0-62.0) fl RDW Coeff of Alva 13 (11.0-15.0) % Plt Count 126 L (150-400) K/uL MPV 11.00 (7.40-12.00) fL Nucleated RBC % 0.0 /100WBC Nucleated RBCs # 0 K/uL Sodium 142 (136-146) mmol/L Potassium 4.5 (3.5-5.1) mmol/L Chloride 108 (98-110) mmol/L Carbon Dioxide 29 (21-31) mmol/L BUN 9 (6.0-23.0) mg/dL Creatinine 0.8 (0.6-1.5) mg/dL Est Cr Clr Drug Dosing 70.97 mL/min Estimated GFR (MDRD) > 60.0 ml/min Glucose 92 (60-110) mg/dL Calcium 8.6 L (8.8-10.8) mg/dL Total Bilirubin 0.7 (0.1-1.5) mg/dL AST 15 (5-40) IU/L ALT 16 (8-54) IU/L Alkaline Phosphatase 100 (40-150) Total Protein 5.0 L (6.0-8.0) g/dL Albumin 3.1 L (3.4-4.8) g/dL Globulin 1.9 L (2.0-3.5) g/dL Albumin/Globulin Ratio 1.6 (1.3-2.8) Mahad Results Last 24 Hours: Microbiology 02/19/17 13:58 Gram Stain - Final Sputum - Expectorated Sputum Culture - Final Normal Respiratory Isatu Med Orders - Current: Current Medications Acetaminophen (Tylenol) 650 mg PO Q4H PRN PRN Reason: Pain (Mild 1-3)/fever Last Admin: 02/22/17 06:21 Dose: 650 mg Albuterol/Ipratropium (Duoneb 3.0-0.5 Mg/3 Ml) 3 ml NEB Q4HRRT PRN PRN Reason: Shortness Of Breath/wheezing Last Admin: 02/20/17 18:00 Dose: 3 ml Aspirin (Halfprin) 81 mg PO DAILY [facility] Last Admin: 02/22/17 08:54 Dose: 81 mg Benzonatate (Tessalon Perles) 100 mg PO QID PRN PRN Reason: Cough Last Admin: 02/22/17 02:31 Dose: 100 mg Citalopram Hydrobromide (Celexa) 20 mg PO DAILY [facility] Last Admin: 02/22/17 08:54 Dose: 20 mg Heparin Sodium (Porcine) (Heparin Sodium) 5,000 units SUBCUT Q8H [facility] Last Admin: 02/22/17 06:16 Dose: 5,000 units Levofloxacin/Dextrose 750 mg/ (Premix) 150 mls @ 100 mls/hr IV Q24H [facility] Last Admin: 02/22/17 11:20 Dose: 100 mls/hr Piperacillin Sod/Tazobactam (Sod 4.5 gm/ Sodium Chloride) 100 mls @ 100 mls/hr IV Q6H [facility] Last Admin: 02/22/17 08:56 Dose: 100 mls/hr Metoprolol Tartrate (Lopressor) 100 mg PO BIDMEALS [facility] Last Admin: 02/22/17 08:53 Dose: 100 mg Ondansetron HCl (Zofran Odt) 4 mg PO Q4H PRN PRN Reason: nausea, able to take PO Mexiletine 150 Mg (Capsule*Pt Own Med*) 1 each PO DAILY@0900 [facility] Last Admin: 02/22/17 08:55 Dose: 1 each Simvastatin (Zocor) 80 mg PO BEDTIME [facility] Last Admin: 02/21/17 20:22 Dose: 80 mg Terazosin HCl (Hytrin) 2 mg PO BEDTIME [facility] Last Admin: 02/21/17 20:26 Dose: 2 mg Discontinued Medications Albuterol/Ipratropium (Duoneb 3.0-0.5 Mg/3 Ml) 3 ml NEB ONETIME ONE Stop: 02/19/17 12:27 Last Admin: 02/19/17 12:38 Dose: 3 ml Aspirin (Ecotrin) 81 mg PO DAILY [facility] Sodium Chloride (Normal Saline) 1,000 mls @ 125 mls/hr IV STAT [facility] Last Infusion: 02/19/17 12:52 Dose: 25 mls/hr Levofloxacin/Dextrose 750 mg/ (Premix) 150 mls @ 100 mls/hr IV ONETIME ONE Stop: 02/19/17 14:18 Last Admin: 02/19/17 12:59 Dose: 100 mls/hr Sodium Chloride (Normal Saline) 500 mls @ 125 mls/hr IV STAT ONE Stop: 02/19/17 19:04 Last Admin: 02/19/17 15:43 Dose: 125 mls/hr Vancomycin HCl 1.25 gm/ Sodium (Chloride) 250 mls @ 166.667 mls/hr IV Q12H [facility] Last Admin: 02/21/17 05:19 Dose: 166.667 mls/hr Patient Own Medication (Ptom) 1 each PO TID [facility] Last Admin: 02/19/17 16:35 Dose: Not Given Vancomycin HCl (Pharmacy To Dose - Vancomycin) 1 dose .XX ASDIRECTED [facility] - Exam General: Alert, Oriented Lungs: Normal Respiratory Effort, Wheezing (bilaterally) Cardiovascular: Regular Rate, Regular Rhythm GI/Abdominal Exam: Soft, Non-Tender Extremities: Non-Tender, No Pedal Edema Skin: Warm, Dry, Intact - Problem List Review Problem List Initiated/Reviewed/Updated: Yes - My Orders Last 24 Hours: My Active Orders 02/22/17 12:30 predniSONE 40 mg PO DAILY - Plan Plan:: 76 yo male admitted for RLL pneumonia that failed outpatient management. 1. Pneumonia: Continue zosyn and levaquin. will add prednison as noted wheezing on exam today. satting 90s on RA but mid 80s with walking. 2. CHF: stable No edema or chest pain. 3. CABGx5/CAD: Stable. No chest pain Continue ASA VTE proph: Heparin Dispo: possible discharge home tomorrow.
[2017-02-22] MEDS: predniSONE 20 MG Tab PO SCH (13:06)
[2017-02-22] MEDS: Simvastatin 40 MG Tab PO SCH (21:29)
[2017-02-22] MEDS: Terazosin 1 MG Cap PO SCH (21:30)
[2017-02-22] MEDS: Albuterol/Ipratropium 3.0-0.5 MG/3 ML Neb Soln NEB PRN (21:38)
[2017-02-23] MEDS: Piperacillin/Tazobactam 4.5 GM in Sodium Chloride 0.9% 100 ML IV SCH ×4 (02:28→22:13)
[2017-02-23] MEDS: Heparin Sodium 5,000 Units/ML Vial SUBCUT SCH ×3 (06:17→23:04)
[2017-02-23 06:48] LABS: CHLORIDE,CL 107 mmol/L (98-110); SODIUM,NA 139 mmol/L (136-146)
[2017-02-23] MEDS: Metoprolol Tartrate 50 MG Tab PO SCH ×2 (08:33→18:40)
[2017-02-23] MEDS: predniSONE 20 MG Tab PO SCH (08:34)
[2017-02-23] MEDS: Aspirin 81 MG Tab.EC PO SCH (08:34)
[2017-02-23] MEDS: Citalopram 20 MG Tab PO SCH (08:35)
[2017-02-23] MEDS: MEXILETINE 150 MG PO SCH (08:37)
--- NOTE | 2017-02-23 09:42 | PCM.PN ---
- Review of Systems Systems Review Comment:: reports coughing fits that make him short of breath. these spells make him very anxious about discharge. - Patient Data Vitals - Most Recent: Last Vital Signs Temp 36.4 C 02/23/17 08:00 Pulse 72 02/23/17 08:33 Resp 16 02/23/17 08:00 BP 115/53 L 02/23/17 08:33 Pulse Ox 93 L 02/23/17 08:00 Weight - Most Recent: 78 kg I&O - Last 24 Hours: Intake & Output 02/22/17 02/23/17 02/23/17 22:59 06:59 14:59 Intake Total 850 100 Output Total 250 Balance 600 100 Lab Results Last 24 Hours: Laboratory Results - last 24 hr 02/23/17 02/23/17 Range/Units 05:58 05:58 WBC 6.69 (4.0-11.0) K/uL RBC 4.30 L (4.50-5.90) M/uL Hgb 13.1 (13.0-17.0) g/dL Hct 38.1 (38.0-50.0) % MCV 88.6 (80.0-98.0) fL MCH 30.5 (27.0-32.0) pg MCHC 34.4 (31.0-37.0) g/dL RDW Std Deviation 41.8 (28.0-62.0) fl RDW Coeff of Alva 13 (11.0-15.0) % Plt Count 135 L (150-400) K/uL MPV 10.80 (7.40-12.00) fL Nucleated RBC % 0.0 /100WBC Nucleated RBCs # 0 K/uL Sodium 139 (136-146) mmol/L Potassium 4.4 (3.5-5.1) mmol/L Chloride 107 (98-110) mmol/L Carbon Dioxide 26 (21-31) mmol/L BUN 9 (6.0-23.0) mg/dL Creatinine 0.8 (0.6-1.5) mg/dL Est Cr Clr Drug Dosing 70.97 mL/min Estimated GFR (MDRD) > 60.0 ml/min Glucose 126 H (60-110) mg/dL Calcium 9.0 (8.8-10.8) mg/dL Total Bilirubin 0.4 (0.1-1.5) mg/dL AST 16 (5-40) IU/L ALT 18 (8-54) IU/L Alkaline Phosphatase 97 (40-150) Total Protein 5.5 L (6.0-8.0) g/dL Albumin 3.1 L (3.4-4.8) g/dL Globulin 2.4 (2.0-3.5) g/dL Albumin/Globulin Ratio 1.3 (1.3-2.8) Med Orders - Current: Current Medications Acetaminophen (Tylenol) 650 mg PO Q4H PRN PRN Reason: Pain (Mild 1-3)/fever Last Admin: 02/22/17 06:21 Dose: 650 mg Albuterol/Ipratropium (Duoneb 3.0-0.5 Mg/3 Ml) 3 ml NEB Q4HRRT PRN PRN Reason: Shortness Of Breath/wheezing Last Admin: 02/22/17 21:38 Dose: 3 ml Aspirin (Halfprin) 81 mg PO DAILY [facility] Last Admin: 02/23/17 08:34 Dose: 81 mg Benzonatate (Tessalon Perles) 100 mg PO QID PRN PRN Reason: Cough Last Admin: 02/22/17 02:31 Dose: 100 mg Citalopram Hydrobromide (Celexa) 20 mg PO DAILY [facility] Last Admin: 02/23/17 08:35 Dose: 20 mg Heparin Sodium (Porcine) (Heparin Sodium) 5,000 units SUBCUT Q8H [facility] Last Admin: 02/23/17 06:17 Dose: 5,000 units Levofloxacin/Dextrose 750 mg/ (Premix) 150 mls @ 100 mls/hr IV Q24H [facility] Last Admin: 02/22/17 11:20 Dose: 100 mls/hr Piperacillin Sod/Tazobactam (Sod 4.5 gm/ Sodium Chloride) 100 mls @ 100 mls/hr IV Q6H [facility] Last Admin: 02/23/17 08:38 Dose: 100 mls/hr Metoprolol Tartrate (Lopressor) 100 mg PO BIDMEALS [facility] Last Admin: 02/23/17 08:33 Dose: 100 mg Ondansetron HCl (Zofran Odt) 4 mg PO Q4H PRN PRN Reason: nausea, able to take PO Mexiletine 150 Mg (Capsule*Pt Own Med*) 1 each PO DAILY@0900 [facility] Last Admin: 02/23/17 08:37 Dose: 1 each Prednisone (Prednisone) 40 mg PO DAILY [facility] Last Admin: 02/23/17 08:34 Dose: 40 mg Simvastatin (Zocor) 80 mg PO BEDTIME [facility] Last Admin: 02/22/17 21:29 Dose: 80 mg Terazosin HCl (Hytrin) 2 mg PO BEDTIME [facility] Last Admin: 02/22/17 21:30 Dose: 2 mg Discontinued Medications Albuterol/Ipratropium (Duoneb 3.0-0.5 Mg/3 Ml) 3 ml NEB ONETIME ONE Stop: 02/19/17 12:27 Last Admin: 02/19/17 12:38 Dose: 3 ml Aspirin (Ecotrin) 81 mg PO DAILY [facility] Sodium Chloride (Normal Saline) 1,000 mls @ 125 mls/hr IV STAT [facility] Last Infusion: 02/19/17 12:52 Dose: 25 mls/hr Levofloxacin/Dextrose 750 mg/ (Premix) 150 mls @ 100 mls/hr IV ONETIME ONE Stop: 02/19/17 14:18 Last Admin: 02/19/17 12:59 Dose: 100 mls/hr Sodium Chloride (Normal Saline) 500 mls @ 125 mls/hr IV STAT ONE Stop: 02/19/17 19:04 Last Admin: 02/19/17 15:43 Dose: 125 mls/hr Vancomycin HCl 1.25 gm/ Sodium (Chloride) 250 mls @ 166.667 mls/hr IV Q12H [facility] Last Admin: 02/21/17 05:19 Dose: 166.667 mls/hr Patient Own Medication (Ptom) 1 each PO TID [facility] Last Admin: 02/19/17 16:35 Dose: Not Given Vancomycin HCl (Pharmacy To Dose - Vancomycin) 1 dose .XX ASDIRECTED [facility] - Exam General: Alert, Oriented, No Acute Distress Neck: Supple Lungs: Normal Respiratory Effort, Rhonchi Cardiovascular: Regular Rate, Regular Rhythm GI/Abdominal Exam: Soft, Non-Tender Extremities: Non-Tender, No Pedal Edema Skin: Warm, Dry, Intact - Problem List Review Problem List Initiated/Reviewed/Updated: Yes - My Orders Last 24 Hours: My Active Orders 12/30/17 12:30 predniSONE 40 mg PO DAILY - Plan Plan:: 76 yo male admitted for RLL pneumonia that failed outpatient management. 1. Pneumonia: d/c zosyn and continue levaquin and prednisone for reactive airway disease 2. CHF: stable No edema or chest pain. 3. CABGx5/CAD: Stable. No chest pain Continue ASA VTE proph: Heparin Dispo: possible discharge home tomorrow.
[2017-02-23] MEDS: Levofloxacin/Dextrose 5%-Water 750 MG in Premix Bag 1 BAG IV SCH (12:41)
[2017-02-23] MEDS: Terazosin 1 MG Cap PO SCH (21:00)
[2017-02-23] MEDS: Simvastatin 40 MG Tab PO SCH (21:00)
[2017-02-23] MEDS: Benzonatate 100 MG Cap PO PRN (21:04)
[2017-02-23] MEDS: Albuterol/Ipratropium 3.0-0.5 MG/3 ML Neb Soln NEB PRN (21:05)
[2017-02-24] MEDS: Heparin Sodium 5,000 Units/ML Vial SUBCUT SCH ×3 (06:07→22:38)
[2017-02-24 06:44] LABS: CHLORIDE,CL 107 mmol/L (98-110); SODIUM,NA 141 mmol/L (136-146)
[2017-02-24] MEDS: Metoprolol Tartrate 50 MG Tab PO SCH ×2 (08:08→16:45)
[2017-02-24] MEDS: MEXILETINE 150 MG PO SCH (08:09)
[2017-02-24] MEDS: Aspirin 81 MG Tab.EC PO SCH (08:09)
[2017-02-24] MEDS: Citalopram 20 MG Tab PO SCH (08:09)
[2017-02-24] MEDS: predniSONE 20 MG Tab PO SCH (08:09)
[2017-02-24] MEDS: Levofloxacin/Dextrose 5%-Water 750 MG in Premix Bag 1 BAG IV SCH (11:09)
--- NOTE | 2017-02-24 14:40 | PCM.PN ---
- Review of Systems Systems Review Comment:: reports coughing and shortness of breath, minimal improvement from yesterday - Patient Data Vitals - Most Recent: Last Vital Signs Temp 36.3 C 02/24/17 11:29 Pulse 76 02/24/17 11:29 Resp 20 02/24/17 11:29 BP 120/68 02/24/17 11:29 Pulse Ox 94 L 02/24/17 11:29 Weight - Most Recent: 79 kg I&O - Last 24 Hours: Intake & Output 02/23/17 02/24/17 02/24/17 22:59 06:59 14:59 Intake Total 760 700 150 Output Total 615 750 Balance 145 -50 150 Lab Results Last 24 Hours: Laboratory Results - last 24 hr 02/24/17 02/24/17 Range/Units 06:05 06:05 WBC 7.00 (4.0-11.0) K/uL RBC 4.31 L (4.50-5.90) M/uL Hgb 13.1 (13.0-17.0) g/dL Hct 38.3 (38.0-50.0) % MCV 88.9 (80.0-98.0) fL MCH 30.4 (27.0-32.0) pg MCHC 34.2 (31.0-37.0) g/dL RDW Std Deviation 41.8 (28.0-62.0) fl RDW Coeff of Alva 13 (11.0-15.0) % Plt Count 142 L (150-400) K/uL MPV 10.70 (7.40-12.00) fL Neut % (Auto) 68.8 (48.0-80.0) % Lymph % (Auto) 19.4 (16.0-40.0) % [place] % (Auto) 11.4 (0.0-15.0) % Eos % (Auto) 0.3 (0.0-7.0) % Baso % (Auto) 0.1 (0.0-1.5) % Neut # (Auto) 4.8 (1.4-5.7) K/uL Lymph # (Auto) 1.4 (0.6-2.4) K/uL [place] # (Auto) 0.8 (0.0-0.8) K/uL Eos # (Auto) 0.0 (0.0-0.7) K/uL Baso # (Auto) 0.0 (0.0-0.1) K/uL Nucleated RBC % 0.0 /100WBC Nucleated RBCs # 0 K/uL Sodium 141 (136-146) mmol/L Potassium 4.1 (3.5-5.1) mmol/L Chloride 107 (98-110) mmol/L Carbon Dioxide 28 (21-31) mmol/L BUN 12 (6.0-23.0) mg/dL Creatinine 0.8 (0.6-1.5) mg/dL Est Cr Clr Drug Dosing 70.97 mL/min Estimated GFR (MDRD) > 60.0 ml/min Glucose 121 H (60-110) mg/dL Calcium 9.1 (8.8-10.8) mg/dL Med Orders - Current: Current Medications Acetaminophen (Tylenol) 650 mg PO Q4H PRN PRN Reason: Pain (Mild 1-3)/fever Last Admin: 02/22/17 06:21 Dose: 650 mg Albuterol/Ipratropium (Duoneb 3.0-0.5 Mg/3 Ml) 3 ml NEB Q4HRRT PRN PRN Reason: Shortness Of Breath/wheezing Last Admin: 02/23/17 21:05 Dose: 3 ml Aspirin (Halfprin) 81 mg PO DAILY [facility] Last Admin: 02/24/17 08:09 Dose: 81 mg Benzonatate (Tessalon Perles) 100 mg PO QID PRN PRN Reason: Cough Last Admin: 02/23/17 21:04 Dose: 100 mg Citalopram Hydrobromide (Celexa) 20 mg PO DAILY [facility] Last Admin: 02/24/17 08:09 Dose: 20 mg Heparin Sodium (Porcine) (Heparin Sodium) 5,000 units SUBCUT Q8H [facility] Last Admin: 02/24/17 06:07 Dose: 5,000 units Levofloxacin/Dextrose 750 mg/ (Premix) 150 mls @ 100 mls/hr IV Q24H [facility] Last Admin: 02/24/17 11:09 Dose: 100 mls/hr Metoprolol Tartrate (Lopressor) 100 mg PO BIDMEALS [facility] Last Admin: 02/24/17 08:08 Dose: 100 mg Ondansetron HCl (Zofran Odt) 4 mg PO Q4H PRN PRN Reason: nausea, able to take PO Mexiletine 150 Mg (Capsule*Pt Own Med*) 1 each PO DAILY@0900 [facility] Last Admin: 02/24/17 08:09 Dose: 1 each Prednisone (Prednisone) 40 mg PO DAILY [facility] Last Admin: 02/24/17 08:09 Dose: 40 mg Simvastatin (Zocor) 80 mg PO BEDTIME [facility] Last Admin: 02/23/17 21:00 Dose: 80 mg Terazosin HCl (Hytrin) 2 mg PO BEDTIME [facility] Last Admin: 02/23/17 21:00 Dose: 2 mg Discontinued Medications Albuterol/Ipratropium (Duoneb 3.0-0.5 Mg/3 Ml) 3 ml NEB ONETIME ONE Stop: 02/19/17 12:27 Last Admin: 02/19/17 12:38 Dose: 3 ml Aspirin (Ecotrin) 81 mg PO DAILY [facility] Sodium Chloride (Normal Saline) 1,000 mls @ 125 mls/hr IV STAT [facility] Last Infusion: 02/19/17 12:52 Dose: 25 mls/hr Levofloxacin/Dextrose 750 mg/ (Premix) 150 mls @ 100 mls/hr IV ONETIME ONE Stop: 02/19/17 14:18 Last Admin: 02/19/17 12:59 Dose: 100 mls/hr Piperacillin Sod/Tazobactam (Sod 4.5 gm/ Sodium Chloride) 100 mls @ 100 mls/hr IV Q6H [facility] Last Admin: 02/23/17 22:13 Dose: Not Given Sodium Chloride (Normal Saline) 500 mls @ 125 mls/hr IV STAT ONE Stop: 02/19/17 19:04 Last Admin: 02/19/17 15:43 Dose: 125 mls/hr Vancomycin HCl 1.25 gm/ Sodium (Chloride) 250 mls @ 166.667 mls/hr IV Q12H [facility] Last Admin: 02/21/17 05:19 Dose: 166.667 mls/hr Patient Own Medication (Ptom) 1 each PO TID [facility] Last Admin: 02/19/17 16:35 Dose: Not Given Vancomycin HCl (Pharmacy To Dose - Vancomycin) 1 dose .XX ASDIRECTED [facility] - Exam General: Alert, Oriented Lungs: Rhonchi, Wheezing Cardiovascular: Regular Rate, Regular Rhythm GI/Abdominal Exam: Soft, Non-Tender Extremities: Non-Tender, No Pedal Edema Skin: Warm, Intact - Problem List Review Problem List Initiated/Reviewed/Updated: Yes - Plan Plan:: 76 yo male admitted for RLL pneumonia that failed outpatient management. 1. Pneumonia: continue levaquin and prednisone for reactive airway disease 2. CHF: stable No edema or chest pain. 3. CABGx5/CAD: Stable. No chest pain Continue ASA VTE proph: Heparin Dispo: anticipate discharge home tomorrow.
[2017-02-24] MEDS: Simvastatin 40 MG Tab PO SCH (20:58)
[2017-02-24] MEDS: Terazosin 1 MG Cap PO SCH (22:00)
[2017-02-24] MEDS: Sodium Chloride 0.65% Nasal Spray 45 ML Bottle NASBOTH PRN (22:39)
[2017-02-25] MEDS: Heparin Sodium 5,000 Units/ML Vial SUBCUT SCH (07:47)
[2017-02-25] MEDS: Metoprolol Tartrate 50 MG Tab PO SCH (08:16)
[2017-02-25] MEDS: Citalopram 20 MG Tab PO SCH (08:16)
[2017-02-25] MEDS: MEXILETINE 150 MG PO SCH (08:17)
[2017-02-25] MEDS: Aspirin 81 MG Tab.EC PO SCH (08:17)
[2017-02-25] MEDS: predniSONE 20 MG Tab PO SCH (08:17)
[2017-02-25] MEDS: Sodium Chloride 0.65% Nasal Spray 45 ML Bottle NASBOTH PRN (08:19)
[2017-02-25] MEDS: Levofloxacin/Dextrose 5%-Water 750 MG in Premix Bag 1 BAG IV SCH (11:13)
[2017-02-25 11:17] VITALS: BP 134/69
--- NOTE | 2017-02-25 11:51 | PCM.DCSUM1 ---
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 Patient states that his cough initially began approximate 6 weeks ago. He saw a nurse practitioner who placed him on doxycycline. States that he did not improve significantly. He then saw the same nurse practitioner again and was placed on another antibiotic plus prednisone and albuterol. This seemed to improve his symptoms somewhat but then on 02/17/17 his cough and shortness breath became worse again with associated chills and diaphoresis. This has increasingly gotten worse until he visited the emergency room today. Reports productive cough with yellow-shivani green sputum production. States that he was on home oxygen up until 3 months ago. He was on home oxygen for approximately 2 years secondary to a pneumonia. He has never been diagnosed with COPD but has a 30+ pack year smoking history. He quit 14 years ago. He denies any chest pain, palpitations, increased fluid retention, nausea, vomiting, diarrhea, syncopal episodes, or focal neurologic deficits. In the emergency department he was found to have leukocytosis of 15 K , CMP and lactate unremarkable, chest x-ray revealed a right lower lobe infiltrate. He was initially mildly hypotensive with a blood pressure of 86/45 which resolved with 1 L NS. Hypoxic requiring 2 L n/c to 94%. Influenza swab was negative. Patient's last echocardiogram for a CHF was approximately 2 years ago. He is on aspirin daily. Patient was admitted for similar symptoms in 10/2014. Patient admitted to inpatient for community-acquired pneumonia. - Discharge Data Discharge Date: 02/25/17 Discharge Disposition: Home, Self-Care 01 Condition: Good - Discharge Diagnosis/Problem(s) (1) Hypoxemia SNOMED Code(s): 967676215 ICD Code: R09.02 - HYPOXEMIA Status: Acute Priority: High Current Visit : Yes (2) Pneumonia SNOMED Code(s): 428851635 ICD Code: J18.9 - PNEUMONIA, UNSPECIFIED ORGANISM Status: Acute Priority : High Current Visit: Yes Qualifiers: Pneumonia type: due to unspecified organism Laterality: right Lung location: lower lobe of lung Qualified Code(s): J18.1 - Lobar pneumonia, unspecified organism (3) Hypertension SNOMED Code(s): 21249061 ICD Code: I10 - ESSENTIAL (PRIMARY) HYPERTENSION Status: Chronic Priority : Medium Current Visit: Yes Qualifiers: Hypertension type: essential hypertension Qualified Code(s): I10 - Essential (primary) hypertension (4) S/P CABG x 5 SNOMED Code(s): 309438511 ICD Code: Z95.1 - PRESENCE OF AORTOCORONARY BYPASS GRAFT Status: Chronic Priority: Medium Current Visit: Yes (5) Failure of outpatient treatment SNOMED Code(s): 965130492 ICD Code: Z78.9 - OTHER SPECIFIED HEALTH STATUS Status: Acute Current Visit: No (6) CHF (congestive heart failure) SNOMED Code(s): 06540502 ICD Code: I50.9 - HEART FAILURE, UNSPECIFIED Status: Chronic Priority: High Current Visit: No Qualifiers: Congestive heart failure type: unspecified congestive heart failure type Congestive heart failure chronicity: unspecified congestive heart failure chronicity Qualified Code(s): I50.9 - Heart failure, unspecified - Patient Instructions Diet: Heart Healthy Diet Activity: As Tolerated Showering/Bathing: May Shower Notify Provider of: Fever, Increased Pain, Swelling and Redness, Drainage, Nausea and/or Vomiting - Discharge Plan Prescriptions/Med Rec: Benzonatate [Tessalon Perles] 100 mg PO QID PRN #30 cap PRN Reason: Cough Levofloxacin [Levaquin] 750 mg PO DAILY #4 tablet Prednisone [IJD: predniSONE] 40 mg PO DAILY #6 tablet Home Medications: Home Meds Aspirin [Ecotrin] 81 mg PO DAILY 11/15/14 [History] Citalopram [Celexa] 20 mg PO DAILY 11/15/14 [History] Losartan [Cozaar] 50 mg PO DAILY 11/15/14 [History] Simvastatin 80 mg PO BEDTIME 11/15/14 [History] Terazosin [Hytrin] 2 mg PO BEDTIME 11/15/14 [History] Metoprolol Tartrate [Lopressor] 100 mg PO BID 11/17/14 [History] Multivit-Min/FA/Lycopene/Lut [Centrum Silver Tablet] 1 tab PO DAILY 11/17/14 [ History] Spironolactone [Aldactone] 25 mg PO DAILY 02/19/17 [History] Benzonatate [Tessalon Perles] 100 mg PO QID PRN #30 cap 02/25/17 [Rx] Levofloxacin [Levaquin] 750 mg PO DAILY #4 tablet 02/25/17 [Rx] Mexiletine HCl 150 mg PO DAILY #0 02/25/17 [Rx] Prednisone [IJD: predniSONE] 40 mg PO DAILY #6 tablet 02/25/17 [Rx] Referrals: Jim Mandel MD [Primary Care Provider] - 02/28/17 9:00 am - Discharge Summary/Plan Comment DC Time >30 min.: No Discharge Summary/Plan Comment: Discharge Diagnoses: Community acquired pneumonia Bronchitis Dypsnea CHF with LV EF 20% Pacemaker HTN Hyperlipidemia Devin was admitted and treated with broad spectrum antibiotics due to failed outpatient management. He was noted to be volume depleted, no acute exacerbation of CHF and was treated with IV fluid hydration. Patient slowly improved, but cough remained a concern to patient and had such coughing attacks he would become very short of breath. BC remained negative and leukocytosis improved. Antibiotics slowly de-escalated to Levaquin alone. Which he continues to improve on. He was mostly been weaned off oxygen but remains SOB with activity. he reports this is very similar to at home. He reports he stopped getting his oxygen at home 6 months ago, but for the last 6-8 weeks he has been feeling worse. He has never been diagnoses with lung disease such as COPD. CHF like is main cause of exertional dyspnea and hypoxia. ECHO obtained on admission revealed LV EF 20% with grade 1 diastolic filling defect along with anterior and septal akinesia, apical diskinesia and hypokinesia of remaining rubio. At rest on room air, O2 was 94%. With activity he was noted to have room air saturations of 88% and when placed on 3 l NC he elevated to 94%. I will prescribe him oxygen 2 L NC with activity at home due to exertional dyspnea and hypoxia and CHF. He will take Levaquin 750 mg daily for 4 more days, 10 days total due to length of illness and slow improvement and Prednisone 40 mg x 3 more days, 1 week total. I will also give him Tessalon pearls to help with cough as needed. He is to return to PCP in 1 week to ensure is he feeling better. He is to return to ED or clinic if concerns should arise. - General Info Date of Service: 02/25/17 Admission Dx/Problem (Free Text: Pneumonia, dyspnea Subjective Update: Feeling better today, cough has improved, still there but feeling better and ready for discharge today. No chest pain. SOB is noted with activity, he reports this is much like at home, but gets SOB quicker. Functional Status: Reports: Pain Controlled, Tolerating Diet, Ambulating, Urinating - Review of Systems General: Reports: No Symptoms. Denies: Fever HEENT: Reports: Post Nasal Drip, Sinus Congestion. Denies: Headaches, Visual Changes Pulmonary: Reports: Cough, Wheezing. Denies: Pleuritic Chest Pain, Sputum Cardiovascular: Reports: Dyspnea on Exertion. Denies: Chest Pain, Palpitations Gastrointestinal: Reports: No Symptoms. Denies: Abdominal Pain, Nausea, Vomiting Genitourinary: Reports: No Symptoms. Denies: Dysuria, Frequency, Burning, Pain Skin: Reports: No Symptoms. Denies: Cyanosis Neurological: Reports: No Symptoms. Denies: Confusion Psychiatric: Reports: No Symptoms. Denies: Confusion - Patient Data Vitals - Most Recent: Last Vital Signs Temp 97.2 F 02/25/17 11:16 Pulse 70 02/25/17 11:16 Resp 18 02/25/17 11:16 BP 134/69 02/25/17 11:16 Pulse Ox 95 02/25/17 11:16 Weight - Most Recent: 79 kg I&O - Last 24 hours: Intake & Output 02/24/17 02/25/17 02/25/17 22:59 06:59 14:59 Intake Total 680 700 150 Output Total 650 1100 Balance 30 -400 150 Med Orders - Current: Current Medications Acetaminophen (Tylenol) 650 mg PO Q4H PRN PRN Reason: Pain (Mild 1-3)/fever Last Admin: 02/22/17 06:21 Dose: 650 mg Albuterol/Ipratropium (Duoneb 3.0-0.5 Mg/3 Ml) 3 ml NEB Q4HRRT PRN PRN Reason: Shortness Of Breath/wheezing Last Admin: 02/23/17 21:05 Dose: 3 ml Aspirin (Halfprin) 81 mg PO DAILY [facility] Last Admin: 02/25/17 08:17 Dose: 81 mg Benzonatate (Tessalon Perles) 100 mg PO QID PRN PRN Reason: Cough Last Admin: 02/23/17 21:04 Dose: 100 mg Citalopram Hydrobromide (Celexa) 20 mg PO DAILY [facility] Last Admin: 02/25/17 08:16 Dose: 20 mg Heparin Sodium (Porcine) (Heparin Sodium) 5,000 units SUBCUT Q8H [facility] Last Admin: 02/25/17 07:47 Dose: 5,000 units Levofloxacin/Dextrose 750 mg/ (Premix) 150 mls @ 100 mls/hr IV Q24H [facility] Last Admin: 02/25/17 11:13 Dose: 100 mls/hr Losartan Potassium (Cozaar) 50 mg PO DAILY [facility] Metoprolol Tartrate (Lopressor) 100 mg PO BIDMEALS [facility] Last Admin: 02/25/17 08:16 Dose: 100 mg Ondansetron HCl (Zofran Odt) 4 mg PO Q4H PRN PRN Reason: nausea, able to take PO Mexiletine 150 Mg (Capsule*Pt Own Med*) 1 each PO DAILY@0900 [facility] Last Admin: 02/25/17 08:17 Dose: 1 each Mexiletine Hcl 150 (Mg) 1 each PO TID [facility] Prednisone (Prednisone) 40 mg PO DAILY [facility] Last Admin: 02/25/17 08:17 Dose: 40 mg Simvastatin (Zocor) 80 mg PO BEDTIME [facility] Last Admin: 02/24/17 20:58 Dose: 80 mg Sodium Chloride ([place] Nasal [place]) 0 ml NASBOTH BID PRN PRN Reason: nasal dryness/irritation Last Admin: 02/25/17 08:19 Dose: 2 spray Spironolactone (Aldactone) 25 mg PO DAILY [facility] Terazosin HCl (Hytrin) 2 mg PO BEDTIME [facility] Last Admin: 02/24/17 22:00 Dose: 2 mg Discontinued Medications Albuterol/Ipratropium (Duoneb 3.0-0.5 Mg/3 Ml) 3 ml NEB ONETIME ONE Stop: 02/19/17 12:27 Last Admin: 02/19/17 12:38 Dose: 3 ml Aspirin (Ecotrin) 81 mg PO DAILY [facility] Sodium Chloride (Normal Saline) 1,000 mls @ 125 mls/hr IV STAT [facility] Last Infusion: 02/19/17 12:52 Dose: 25 mls/hr Levofloxacin/Dextrose 750 mg/ (Premix) 150 mls @ 100 mls/hr IV ONETIME ONE Stop: 02/19/17 14:18 Last Admin: 02/19/17 12:59 Dose: 100 mls/hr Piperacillin Sod/Tazobactam (Sod 4.5 gm/ Sodium Chloride) 100 mls @ 100 mls/hr IV Q6H [facility] Last Admin: 02/23/17 22:13 Dose: Not Given Sodium Chloride (Normal Saline) 500 mls @ 125 mls/hr IV STAT ONE Stop: 02/19/17 19:04 Last Admin: 02/19/17 15:43 Dose: 125 mls/hr Vancomycin HCl 1.25 gm/ Sodium (Chloride) 250 mls @ 166.667 mls/hr IV Q12H [facility] Last Admin: 02/21/17 05:19 Dose: 166.667 mls/hr Patient Own Medication (Ptom) 1 each PO TID [facility] Last Admin: 02/19/17 16:35 Dose: Not Given Vancomycin HCl (Pharmacy To Dose - Vancomycin) 1 dose .XX ASDIRECTED [facility] - Exam General: Reports: Alert, Oriented, Cooperative, No Acute Distress Neck: Reports: Supple Lungs: Reports: Normal Respiratory Effort, Wheezing (scant wheezing, otherwise clear) Cardiovascular: Reports: Regular Rate, Regular Rhythm Back Exam: Reports: Normal Inspection, Full Range of Motion Extremities: Normal Inspection, Normal Range of Motion, Non-Tender, No Pedal Edema, Normal Capillary Refill Neurological: Reports: No New Focal Deficit Psy/Mental Status: Reports: Alert, Normal Affect, Normal Mood *Q Meaningful Use (DIS) - VTE *Q VTE Criteria *Q: - Stroke *Q Stroke Criteria *Q: - AMI *Q AMI Criteria *Q:
[2017-02-25] MEDS ORDERED: Mexiletine Hcl 150 MG PO SCH (14:00)
[2017-02-26] MEDS ORDERED: Losartan 50 MG Tab PO SCH (09:00)
[2017-02-26] MEDS ORDERED: Spironolactone 25 MG Tab PO SCH (09:00)
== END 2017-02-25 14:03 | disposition home or self-care (01) | DRG 194 ==
LOC: MW.ED 11:21 → MW.MS 13:13
PROVIDERS: ADMIT Family Medicine; ATTEND Family Medicine
DX: J14 Pneumonia due to Hemophilus influenzae (principal); J18.9 Pneumonia, unspecified organism; I50.20 Unspecified systolic (congestive) heart failure; R09.02 Hypoxemia; I25.10 Atherosclerotic heart disease of native coronary artery without angina pectoris; I10 Essential (primary) hypertension; E78.5 Hyperlipidemia, unspecified; Z95.1 Presence of aortocoronary bypass graft; Z95.810 Presence of automatic (implantable) cardiac defibrillator; Z87.891 Personal history of nicotine dependence; Z79.899 Other long term (current) drug therapy; Z78.9 Other specified health status
CPT/HCPCS: 36415; 36600; 71010; 80053; 82803; 83605; 83880; 84484; 85025; 85610; 87040 ×2; 87804 ×2; 93005; 94640; 96361; 96365; 99285; J1956; J7040; 51798; 80048; 80202; 81001; 83735; 85027; 87070; 87205; 93306; 99284; A9270-GY; J1644; J2543; J3370; J7030; J7050

== ENCOUNTER 2020-12-10 23:54 | Inpatient (IN) | payer MEDICARE, OTHER ==
[2020-12-11] MEDS ORDERED: Sodium Chloride 0.9% 1,000 ML IV ONE (01:17)
[2020-12-11] MEDS ORDERED: Sodium Chloride 0.9% 10 ML Syringe FLUSH PRN (01:17)
[2020-12-11] MEDS ORDERED: Sodium Chloride 0.9% 2.5 ML Syringe FLUSH PRN (01:17)
--- NOTE | 2020-12-11 01:43 | CR ---
Indication: Pain after fall Technique: Three views Comparison: None Findings: Bones: Alignment is normal. No fractures or bone lesions. Joint spaces: No dislocation. Minimal calcification adjacent to the scaphotrapezial joint. Soft tissues: Mild soft tissue swelling at the level of the wrist. Phleboliths within the volar soft tissues. Dictated by Colton Wagner MD @ 12/11/2020 1:41:30 AM (Electronically Signed)
--- NOTE | 2020-12-11 01:47 | CR ---
Indication: Pain after fall Technique: Three views Comparison: None Findings: Bones: Osteopenia without definite fracture. Joint spaces: Joint space narrowing at the 2nd and 3rd metacarpophalangeal joints with marginal osteophytes consistent with osteoarthritis. Small periarticular calcifications at these levels, presumed degenerative although tiny avulsion fragments are conceivable. Soft tissues: Soft tissue swelling of the hand, greater laterally, especially involving the 2nd digit. Dictated by Colton Wagner MD @ 12/11/2020 1:46:26 AM (Electronically Signed)
--- NOTE | 2020-12-11 02:04 | CR ---
Indication: Shortness of breath Technique: Chest 1 view Comparison: None Findings/Impression: Cardiomegaly. Status post median sternotomy. Left-sided AICD. Normal pulmonary vasculature. Atelectasis or infiltrate at the right lung base. No significant effusion. No pneumothorax. No acute osseous abnormality. Dictated by Sharon Cadena MD @ 12/11/2020 2:01:59 AM (Electronically Signed)
[2020-12-11 02:26] LABS: BLOOD UREA NITROGEN,BUN 17 mg/dL (7.0-18.0); CARBON DIOXIDE,CO2 27.1 mmol/L (21.0-32.0); CHLORIDE,CL 106 mmol/L (98-107); GLUCOSE RANDOM 121 mg/dL (74-106); POTASSIUM,K 4.9 mmol/L (3.5-5.1); SODIUM,NA 142 mmol/L (136-148)
[2020-12-11] MEDS ORDERED: REMDESIVIR 200 MG in Sodium Chloride 0.9% 250 ML IV ONE (02:45)
[2020-12-11] MEDS ORDERED: Dexamethasone 10 MG/ML SDV IVPUSH ONE (02:45)
--- NOTE | 2020-12-11 02:46 | EDM.PDOC ---
ED HPI GENERAL MEDICAL PROBLEM - General Chief Complaint: Upper Extremity Injury/Pain Stated Complaint: THINKS HE BROKE HIS WRIST Time Seen by Provider: 12/11/20 01:19 - History of Present Illness INITIAL COMMENTS - FREE TEXT/NARRATIVE: HISTORY AND PHYSICAL: History of present illness: This is an 80-year-old gentleman with history significant for CHF, COPD, CAD, status post AICD, atrial fibrillation, hypertension who presents ER today secondary to a fall. Patient reports that he was eating dinner when he stood up started feeling weak and dizzy and while he was walking he tripped over one of his granddaughters toys and fell to the ground bracing self with his right hand. Patient presented to the ER today complaining of pain and swelling to his right wrist. Patient reports he has had progressively worsening shortness of breath over the last 2 to 3 weeks with a productive cough. Patient reports white sputum. Patient denies any fevers, shakes, chills. Patient does complain of nausea but no vomiting or diarrhea. Patient Nuys any dysuria, frequency, urgency. Patient reports he has had his Covid vaccination approximately 6 months ago. Patient reports that in the past he had qualified for oxygen therapy at home however he reports that it was taken away from him because he no longer required it. He reports that he is not usual use oxygen at home. Upon arrival to the ED, the patient was noted to have a pulse ox of 85% in the waiting room and so was brought back to the ED for supplemental oxygenation and further evaluation. Review of systems: As per history of present illness and below otherwise all systems reviewed and negative. Past medical history: As per history of present illness and as reviewed below otherwise noncontributory. Surgical history: As per history of present illness and as reviewed below otherwise noncontributory. Social history: No reported history of drug abuse. Family history: As per history of present illness and as reviewed below otherwise noncontributory. Physical exam: This patient was seen and evaluated during the 2019 SARS-CoV-2 novel coronavirus pandemic period. Community viral transmission is ongoing at time of this encounter and the emergency department is operating under pandemic response procedures. Constitutional: Patient is oriented to person, place, and time. Appears well- developed and well-nourished. No distress. HEENT: Moist mucous membranes Head: Normocephalic and atraumatic Eyes: Right eye exhibits no discharge. Left eye exhibits no discharge. No scleral icterus Neck: Normal range of motion. No tracheal deviation present. Cardiovascular: Normal rate and regular rhythm. Pulmonary: Effort normal, no respiratory distress. Abdominal: No distention Musculoskeletal: Normal range of motion Neurologic: Alert and oriented to person, place and time. Skin: [place], warm and dry. Psychiatric: Normal mood and affect. Behavior is normal. Judgment and thought content normal. Nursing note and vital signs have been reviewed Coarse diffuse bilateral pulmonary breath sounds. Patient is able to speak in full sentences while on 5 L of O2 nasal cannula. Right wrist reveals soft tissue swelling and tenderness to palpation. Diagnostics: Chest x-ray: Cardiomegaly. Status post median sternotomy. Left-sided AICD. Normal pulmonary vasculature. Atelectasis or infiltrate at the right lung base. No significant effusion. No pneumothorax. No acute osseous abnormalities. Right wrist/hand x-rays: No acute fracture identified. Therapeutics: NSS x1 L DuoNeb x1 Decadron 10 mg IV Remdesivir 200 mg IV Assessment and plan: 80-year-old gentleman with multiple comorbidities who presents ER today secondary to a fall which was related to dizziness when getting up after eating and tripping over a toy. Patient has an injury to his right wrist which appears to be a sprain with no fracture noted on the x-rays. Patient will be placed in a right wrist splint for treatment of a wrist ligamentous injury. During the evaluation ED the patient was noted to be markedly hypoxic with a pulse ox of 85%. He was placed on 5 L nasal cannula with a pulse ox of 96% thereafter. Patient reports that he does feel much better with the nasal oxygen. Patient's Covid test is positive. I have discussed with the patient that given his hypoxia, COPD, and Covid status that I felt that he would need to be admitted to the hospital for oxygen therapy and remdesivir. Patient initially was resistant secondary to the need to care for his granddaughter at home. I remove the oxygen from the patient prior to allowing him to sign out AGAINST MEDICAL ADVICE so that he can see how it would feel at home. After removing the option for approximately 5 minutes the patient was extremely tachypneic I did not feel comfortable with the plan to be discharged home and agreed for admission to the hospital for treatment of his hypoxia and Covid 19 infection. Critical Care: The high probability of sudden, clinically significant deteriorat ion in the patient's condition required the highest level of my preparedness to intervene urgently. The services I provided to this patient were to treat and/or prevent clinically significant deterioration. Services included the following: chart data review, reviewing nursing notes and/or old charts, documentation time, art sales consultant collaboration regarding findings and treatment options, medication orders and management, direct patient care, vital sign assessments and ordering, interpreting and reviewing diagnostic studies/lab tests. Aggregate critical care time includes only time during which I was engaged inwork directly related to the patient's care, as described above, whether at the bedside or elsewhere in the Emergency Department. It did not include time spent performing other reported procedures or the services of residents, students, nurses or physician assistants. Critical Care Time: 35 minutes Definitive disposition and diagnosis as appropriate pending reevaluation and review of above. right hand Pain Score (Numeric/FACES): 8 - Related Data Allergies Allergy/AdvReac Type Severity Reaction Status Date / Time No Known Allergies Allergy Verified 02/19/17 14:52 Home Meds: Home Meds Aspirin [Ecotrin] 81 mg PO DAILY 11/15/14 [History] Citalopram [Celexa] 20 mg PO DAILY 11/15/14 [History] Losartan [Cozaar] 50 mg PO DAILY 11/15/14 [History] Simvastatin 80 mg PO BEDTIME 11/15/14 [History] Terazosin [Hytrin] 2 mg PO BEDTIME 11/15/14 [History] Metoprolol Tartrate [Lopressor] 100 mg PO BID 11/17/14 [History] Multivit-Min/FA/Lycopen/Lutein [Centrum Silver Tablet] 1 tab PO DAILY 11/17/14 [History] Spironolactone [Aldactone] 25 mg PO DAILY 02/19/17 [History] Benzonatate [Tessalon Perles] 100 mg PO QID PRN #30 cap 02/25/17 [Rx] Mexiletine HCl 150 mg PO DAILY #0 02/25/17 [Rx] Prednisone [IJD: predniSONE] 40 mg PO DAILY #6 tablet 02/25/17 [Rx] levoFLOXacin [Levaquin] 750 mg PO DAILY #4 tablet 02/25/17 [Rx] Past Medical History HEENT History: Reports: Impaired Vision, Macular Degeneration Cardiovascular History: Reports: Afib, Automatic Implantable Cardioverter Defibrillators, Bypass, Heart Failure, Pacemaker, SOB on Exertion Respiratory History: Reports: COPD, SOB, Other (See Below) Other Respiratory History: History of Pneumonia 10/2014, uses 02 at home as needed Gastrointestinal History: Reports: GERD Genitourinary History: Reports: None Musculoskeletal History: Reports: Fracture Other Musculoskeletal History: pelvis fracture Neurological History: Reports: None Psychiatric History: Reports: None Endocrine/Metabolic History: Reports: None Hematologic History: Reports: None Immunologic History: Reports: None Oncologic (Cancer) History: Reports: None Dermatologic History: Reports: None - Infectious Disease History Infectious Disease History: Reports: C-Difficile, Chicken Pox, Influenza, Measles, Mumps - Past Surgical History HEENT Surgical History: Reports: Adenoidectomy, Eye Surgery, Oral Surgery, Tonsillectomy Other HEENT Surgeries/Procedures: wears glasses, upper and lower dentures Cardiovascular Surgical History: Reports: Pacer Social & Family History - Family History Family Medical History: No Pertinent Family History - Tobacco Use Tobacco Use Status *Q: Current Every Day Tobacco User Years of Tobacco use: 45 Packs/Tins Daily: 1 - Caffeine Use Caffeine Use: Reports: Coffee - Alcohol Use Days Per Week of Alcohol Use: 7 Number of Drinks Per Day: 1 Total Drinks Per Week: 7 - Recreational Drug Use Recreational Drug Use: No Review of Systems - Review of Systems Review Of Systems: See Below ED EXAM, GENERAL - Physical Exam Exam: See Below #1 Interpretation EKG Interpretation Comments: December 11, 2020 1:19 AM EKG: As interpreted by ER physician: Jacquelyn: Nonspecific ST-T wave abnormalities QRS axis of [address] elevation MO Ventricularly paced rhythm at a rate of 70 bpm Course - Vital Signs Last Recorded V/S: Last Vital Signs Temp 97 F 12/11/20 00:35 Pulse 76 12/11/20 00:35 Resp 20 12/11/20 00:35 BP 84/43 L 12/11/20 00:35 Pulse Ox 87 L 12/11/20 00:35 - Orders/Labs/Meds Orders: Active Orders 24 hr Category Date Time Status Patient Status [ADT] Routine ADT 12/11/20 03:03 Ordered RT Aerosol Therapy [RC] ASDIRECTED Care 12/11/20 03:02 Ordered BILIRUBIN DIRECT [CHEM] DAILY Lab 12/12/20 02:45 Ordered BILIRUBIN DIRECT [CHEM] DAILY Lab 12/13/20 02:45 Ordered BILIRUBIN DIRECT [CHEM] DAILY Lab 12/14/20 02:45 Ordered BILIRUBIN DIRECT [CHEM] DAILY Lab 12/15/20 02:45 Ordered BILIRUBIN DIRECT [CHEM] DAILY Lab 12/16/20 02:45 Ordered COMPREHENSIVE METABOLIC PN,CMP [CHEM] DAILY Lab 12/12/20 02:45 Ordered COMPREHENSIVE METABOLIC PN,CMP [CHEM] DAILY Lab 12/13/20 02:45 Ordered COMPREHENSIVE METABOLIC PN,CMP [CHEM] DAILY Lab 12/14/20 02:45 Ordered COMPREHENSIVE METABOLIC PN,CMP [CHEM] DAILY Lab 12/15/20 02:45 Ordered COMPREHENSIVE METABOLIC PN,CMP [CHEM] DAILY Lab 12/16/20 02:45 Ordered CULTURE BLOOD [BC] Stat Lab 12/11/20 01:00 Received CULTURE BLOOD [BC] Stat Lab 12/11/20 01:30 Received Sodium Chloride 0.9% [Saline Flush] Med 12/11/20 01:17 Active 10 ml FLUSH ASDIRECTED PRN Sodium Chloride 0.9% [Saline Flush] Med 12/11/20 01:17 Active 2.5 ml FLUSH ASDIRECTED PRN Blood Culture x2 Reflex Set [OM.PC] Stat Oth 12/11/20 01:17 Ordered DME for Discharge [COMM] Stat Oth 12/11/20 02:40 Ordered Saline Lock Insert [OM.PC] Stat Oth 12/11/20 01:17 Ordered Medication Orders Sodium Chloride (Sodium Chloride 0.9% 10 Ml Syringe) 10 ml FLUSH ASDIRECTED PRN PRN Reason: Keep Vein Open Last Admin: 12/11/20 01:23 Dose: 10 ml Documented by: MARILYNN Sodium Chloride (Sodium Chloride 0.9% 2.5 Ml Syringe) 2.5 ml FLUSH ASDIRECTED PRN PRN Reason: Keep Vein Open Last Admin: 12/11/20 01:22 Dose: 2.5 ml Documented by: MARILYNN Labs: Laboratory Tests 12/11/20 12/11/20 12/11/20 Range/Units 01:00 01:00 01:00 WBC 10.54 (4.0-11.0) K/uL RBC 5.43 (4.50-5.90) M/uL Hgb 17.3 H (13.0-17.0) g/dL Hct 50.2 H (38.0-50.0) % MCV 92.4 (80.0-98.0) fL MCH 31.9 (27.0-32.0) pg MCHC 34.5 (31.0-37.0) g/dL RDW Std Deviation 48.0 (28.0-62.0) fl RDW Coeff of Alva 14 (11.0-15.0) % Plt Count 173 (150-400) K/uL MPV 12.30 H (7.40-12.00) fL Neut % (Auto) 82.2 H (48.0-80.0) % Lymph % (Auto) 9.6 L (16.0-40.0) % [place] % (Auto) 8.0 (0.0-15.0) % Eos % (Auto) 0.1 (0.0-7.0) % Baso % (Auto) 0.1 (0.0-1.5) % Neut # (Auto) 8.7 H (1.4-5.7) K/uL Lymph # (Auto) 1.0 (0.6-2.4) K/uL [place] # (Auto) 0.8 (0.0-0.8) K/uL Eos # (Auto) 0.0 (0.0-0.7) K/uL Baso # (Auto) 0.0 (0.0-0.1) K/uL Nucleated RBC % 0.0 /100WBC Nucleated RBCs # 0 K/uL Sodium (136-148) mmol/L Potassium (3.5-5.1) mmol/L Chloride (98-107) mmol/L Carbon Dioxide (21.0-32.0) mmol/L BUN (7.0-18.0) mg/dL Creatinine (0.8-1.3) mg/dL Est Cr Clr Drug Dosing mL/min Estimated GFR (MDRD) ml/min Glucose (74-106) mg/dL Lactic Acid 1.7 (0.4-2.0) mmol/L Calcium (8.5-10.1) mg/dL Total Bilirubin (0.2-1.0) mg/dL AST (15-37) IU/L ALT (14-63) IU/L Alkaline Phosphatase (46-116) U/L Troponin I (0.000-0.056) ng/mL Total Protein (6.4-8.2) g/dL Albumin (3.4-5.0) g/dL Globulin (2.6-4.0) g/dL Albumin/Globulin Ratio (0.9-1.6) SARS-CoV-2 RNA (IGOR) POSITIVE H (NEGATIVE) 12/11/20 Range/Units 01:00 WBC (4.0-11.0) K/uL RBC (4.50-5.90) M/uL Hgb (13.0-17.0) g/dL Hct (38.0-50.0) % MCV (80.0-98.0) fL MCH (27.0-32.0) pg MCHC (31.0-37.0) g/dL RDW Std Deviation (28.0-62.0) fl RDW Coeff of Alva (11.0-15.0) % Plt Count (150-400) K/uL MPV (7.40-12.00) fL Neut % (Auto) (48.0-80.0) % Lymph % (Auto) (16.0-40.0) % [place] % (Auto) (0.0-15.0) % Eos % (Auto) (0.0-7.0) % Baso % (Auto) (0.0-1.5) % Neut # (Auto) (1.4-5.7) K/uL Lymph # (Auto) (0.6-2.4) K/uL [place] # (Auto) (0.0-0.8) K/uL Eos # (Auto) (0.0-0.7) K/uL Baso # (Auto) (0.0-0.1) K/uL Nucleated RBC % /100WBC Nucleated RBCs # K/uL Sodium 142 (136-148) mmol/L Potassium 4.9 (3.5-5.1) mmol/L Chloride 106 (98-107) mmol/L Carbon Dioxide 27.1 (21.0-32.0) mmol/L BUN 17 (7.0-18.0) mg/dL Creatinine 1.3 (0.8-1.3) mg/dL Est Cr Clr Drug Dosing 39.91 mL/min Estimated GFR (MDRD) 52.9 ml/min Glucose 121 H (74-106) mg/dL Lactic Acid (0.4-2.0) mmol/L Calcium 7.9 L (8.5-10.1) mg/dL Total Bilirubin 1.1 H (0.2-1.0) mg/dL AST 30 (15-37) IU/L ALT 29 (14-63) IU/L Alkaline Phosphatase 195 H (46-116) U/L Troponin I < 0.050 (0.000-0.056) ng/mL Total Protein 5.6 L (6.4-8.2) g/dL Albumin 2.6 L (3.4-5.0) g/dL Globulin 3.0 (2.6-4.0) g/dL Albumin/Globulin Ratio 0.9 (0.9-1.6) SARS-CoV-2 RNA (IGOR) (NEGATIVE) Meds: Medications Generic Name Dose Route Start Last Admin Trade Name Prem PRN Reason Stop Dose Admin Sodium Chloride 10 ml 12/11/20 01:17 12/11/20 01:23 Sodium Chloride 0.9% 10 Ml Syringe FLUSH 10 ml ASDIRECTED PRN Administration Keep Vein Open Sodium Chloride 2.5 ml 12/11/20 01:17 12/11/20 01:22 Sodium Chloride 0.9% 2.5 Ml Syringe FLUSH 2.5 ml ASDIRECTED PRN Administration Keep Vein Open Discontinued Medications Generic Name Dose Route Start Last Admin Trade Name Prem PRN Reason Stop Dose Admin Albuterol/Ipratropium 3 ml 12/11/20 03:02 Albuterol/Ipratropium 3.0-0.5 Mg/3 Ml Neb Soln NEB 12/11/20 03:03 ONETIME ONE Dexamethasone 10 mg 12/11/20 02:45 Dexamethasone 10 Mg/Ml Sdv IVPUSH 12/11/20 02:46 ONETIME ONE Sodium Chloride 1,000 mls @ 999 mls/hr 12/11/20 01:17 12/11/20 01:22 Normal Saline IV 12/11/20 02:17 999 mls/hr .Bolus ONE Administration Remdesivir 200 mg/ Sodium 250 mls @ 250 mls/hr 12/11/20 02:45 Chloride IV 12/11/20 02:46 ONETIME ONE Departure - Departure Time of Disposition: 03:07 Disposition: Admitted As Inpatient 64 Condition: Fair Clinical Impression: Pneumonia due to COVID-19 virus, Respiratory failure with hypoxia, Right wrist sprain, Fall in elderly patient, Low blood pressure reading - Discharge Information Referrals: Jim Mandel MD [Primary Care Provider] - Forms: ED Department Discharge Sepsis Event Note (ED) - Evaluation Sepsis Screening Result: No Definite Risk - Focused Exam Vital Signs: Vital Signs Temp Pulse Resp BP Pulse Ox 12/11/20 00:35 97 F 76 20 84/43 L 87 L - My Orders Last 24 Hours: My Active Orders 12/11/20 01:00 CULTURE BLOOD [BC] Stat 12/11/20 01:17 Sodium Chloride 0.9% [Saline Flush] 10 ml FLUSH ASDIRECTED PRN Sodium Chloride 0.9% [Saline Flush] 2.5 ml FLUSH ASDIRECTED PRN Blood Culture x2 Reflex Set [OM.PC] Stat Saline Lock Insert [OM.PC] Stat 12/11/20 01:30 CULTURE BLOOD [BC] Stat 12/11/20 02:40 DME for Discharge [COMM] Stat 12/11/20 03:02 RT Aerosol Therapy [RC] ASDIRECTED 12/11/20 03:03 Patient Status [ADT] Routine 12/12/20 02:45 BILIRUBIN DIRECT [CHEM] DAILY COMPREHENSIVE METABOLIC PN,CMP [CHEM] DAILY 12/13/20 02:45 BILIRUBIN DIRECT [CHEM] DAILY COMPREHENSIVE METABOLIC PN,CMP [CHEM] DAILY 12/14/20 02:45 BILIRUBIN DIRECT [CHEM] DAILY COMPREHENSIVE METABOLIC PN,CMP [CHEM] DAILY 12/15/20 02:45 BILIRUBIN DIRECT [CHEM] DAILY COMPREHENSIVE METABOLIC PN,CMP [CHEM] DAILY 12/16/20 02:45 BILIRUBIN DIRECT [CHEM] DAILY COMPREHENSIVE METABOLIC PN,CMP [CHEM] DAILY - Assessment/Plan Last 24 Hours: My Active Orders 12/11/20 01:00 CULTURE BLOOD [BC] Stat 12/11/20 01:17 Sodium Chloride 0.9% [Saline Flush] 10 ml FLUSH ASDIRECTED PRN Sodium Chloride 0.9% [Saline Flush] 2.5 ml FLUSH ASDIRECTED PRN Blood Culture x2 Reflex Set [OM.PC] Stat Saline Lock Insert [OM.PC] Stat 12/11/20 01:30 CULTURE BLOOD [BC] Stat 12/11/20 02:40 DME for Discharge [COMM] Stat 12/11/20 03:02 RT Aerosol Therapy [RC] ASDIRECTED 12/11/20 03:03 Patient Status [ADT] Routine 12/12/20 02:45 BILIRUBIN DIRECT [CHEM] DAILY COMPREHENSIVE METABOLIC PN,CMP [CHEM] DAILY 12/13/20 02:45 BILIRUBIN DIRECT [CHEM] DAILY COMPREHENSIVE METABOLIC PN,CMP [CHEM] DAILY 12/14/20 02:45 BILIRUBIN DIRECT [CHEM] DAILY COMPREHENSIVE METABOLIC PN,CMP [CHEM] DAILY 12/15/20 02:45 BILIRUBIN DIRECT [CHEM] DAILY COMPREHENSIVE METABOLIC PN,CMP [CHEM] DAILY 12/16/20 02:45 BILIRUBIN DIRECT [CHEM] DAILY COMPREHENSIVE METABOLIC PN,CMP [CHEM] DAILY
[2020-12-11] MEDS ORDERED: Albuterol/Ipratropium 3.0-0.5 MG/3 ML Neb Soln NEB ONE (03:02)
[2020-12-11] MEDS ORDERED: Ondansetron 4 MG/2 ML SDV IVPUSH PRN (03:38)
[2020-12-11] MEDS ORDERED: Albuterol 0.083% 2.5 MG/3 ML Neb Soln NEB PRN (03:38)
[2020-12-11] MEDS ORDERED: Acetaminophen 325 MG Tab PO PRN (03:38)
[2020-12-11] MEDS ORDERED: guaiFENesin/Dextromethorphan 100-10 MG/5 ML Soln 10 ML Cup PO PRN (03:43)
[2020-12-11] MEDS ORDERED: Enoxaparin 40 MG/0.4 ML Syringe SUBCUT SCH ×2 (03:45→09:00)
[2020-12-11] MEDS ORDERED: Acetaminophen/HYDROcodone 325-5 MG Tab PO ONE (04:11)
[2020-12-11] MEDS: Albuterol/Ipratropium 4 GM Inhalation Spray INH SCH ×6 (05:25→21:13)
[2020-12-11] MEDS ORDERED: Aspirin 81 MG Tab.EC PO SCH (09:00)
[2020-12-11] MEDS: Pantoprazole 40 MG Vial IV SCH (09:08)
[2020-12-11] MEDS ORDERED: Warfarin 5 MG Tab PO SCH (09:15)
--- NOTE | 2020-12-11 09:23 | PCM.HP.2 ---
H&P History of Present Illness - General Date of Service: 12/11/20 Admit Problem/Dx: Admission Diagnosis/Problem Admission Diagnosis/Problem Respiratory failure with hypoxia - History of Present Illness Initial Comments - Free Text/Narative: This is an 80-year-old gentleman with history significant for CHF, COPD, CAD, status post AICD, atrial fibrillation on Coumadin, hypertension who presents ER today secondary to a fall. Patient reports that after having his supper he stood up suddenly and he felt very dizzy and then suffered a fall after he tripped over one of his granddaughters toys, in the process of falling heated up bracing himself with his right hand. Patient came to the ER complaining of swelling and pain in his right wrist thinking that is probably broken. Patient denied hitting his head. Patient also states that he has been getting progressively weak and short of breath for last few weeks and also complains of productive cough with sputum. The sputum is nonbloody and clear in color. Patient denies any fevers chills. Patient does have less appetite and nausea but no active vomiting or diarrhea. Patient denies urinary frequency urgency. Patient states that he is fully vaccinated and got his vaccinations about 6 months back. Patient states that he used to use oxygen therapy at home for his COPD but then eventually it was discontinued as he no longer required it. X-rays of the right hand done in the ER noted no fractures or general soft tissue swelling. The right wrist splint was placed in the ER. Patient was also found to be hypoxic in ER with pulse ox of 85% and he was started on nasal cannula 5 L thereafter his oxygen saturation improved and he felt much better. Patient's Covid test was positive. Initially patient wanted to leave AGAINST MEDICAL ADVICE as he started to feel better but the movement his oxygen was taken off he started to feel worse again. Eventually he decided to stay in the hospital for further management of his acute hypoxic respiratory failure secondary to Covid pneumonia. right hand Pain Score (Numeric/FACES): 7 - Related Data Allergies/Adverse Reactions: Allergies Allergy/AdvReac Type Severity Reaction Status Date / Time No Known Allergies Allergy Verified 12/11/20 05:05 Home Medications: Home Meds Aspirin [Ecotrin] 81 mg PO DAILY 11/15/14 [History] Citalopram [Celexa] 20 mg PO DAILY 11/15/14 [History] Losartan [Cozaar] 50 mg PO BEDTIME 11/15/14 [History] Simvastatin 40 mg PO BEDTIME 11/15/14 [History] Terazosin [Hytrin] 2 mg PO BEDTIME 11/15/14 [History] Metoprolol Tartrate [Lopressor] 100 mg PO BID 11/17/14 [History] Multivit-Min/FA/Lycopen/Lutein [Centrum Silver Tablet] 1 tab PO DAILY 11/17/14 [History] Spironolactone [Aldactone] 25 mg PO DAILY 02/19/17 [History] Furosemide 20 mg PO DAILY 12/11/20 [History] Warfarin Sodium [Jantoven] 2 mg PO SUTUWEFRSA 12/11/20 [History] Warfarin Sodium [Jantoven] 3 mg PO MOTH 12/11/20 [History] Past Medical History HEENT History: Reports: Impaired Vision, Macular Degeneration Cardiovascular History: Reports: Afib, Automatic Implantable Cardioverter Defibrillators, Bypass, Heart Failure, High Cholesterol, Hypertension, Pacemaker, SOB on Exertion Respiratory History: Reports: COPD, SOB, Other (See Below) Other Respiratory History: History of Pneumonia 10/2014,. per pt he used to use oxygen as needed at home but not anymore. Gastrointestinal History: Reports: GERD Genitourinary History: Reports: None Musculoskeletal History: Reports: Fracture Other Musculoskeletal History: pelvis fracture Neurological History: Reports: None Psychiatric History: Reports: None Endocrine/Metabolic History: Reports: None Hematologic History: Reports: None Immunologic History: Reports: None Oncologic (Cancer) History: Reports: None Dermatologic History: Reports: None - Infectious Disease History Infectious Disease History: Reports: C-Difficile, Chicken Pox, Influenza, Measles, Mumps - Past Surgical History HEENT Surgical History: Reports: Adenoidectomy, Eye Surgery, Oral Surgery, Tonsillectomy Other HEENT Surgeries/Procedures: wears glasses, upper and lower dentures Cardiovascular Surgical History: Reports: Pacer, Other (See Below) Other Cardiovascular Surgeries/Procedures: 5 bypass surgery. AICD surgery (4 times - revisions) Social & Family History - Family History Family Medical History: No Pertinent Family History - Tobacco Use Tobacco Use Status *Q: Former Tobacco User Years of Tobacco use: 50 Packs/Tins Daily: 1 Used Tobacco, but Quit: Yes Month/Year Tobacco Last Used: 13-14 yrs ago Second Hand Smoke Exposure: No - Caffeine Use Caffeine Use: Reports: Coffee, Soda - Alcohol Use Days Per Week of Alcohol Use: 7 Number of Drinks Per Day: 1 Total Drinks Per Week: 7 Date of Last Drink: 12/10/20 Time of Last Drink: 17:00 - Recreational Drug Use Recreational Drug Use: No H&P Review of Systems - Review of Systems: Review Of Systems: See Below General: Reports: Malaise, Weakness, Fatigue. Denies: Fever, Chills Pulmonary: Reports: Shortness of Breath, Cough, Sputum. Denies: Wheezing, Pleuritic Chest Pain Gastrointestinal: Reports: Anorexia, Decreased Appetite, Nausea. Denies: Abdominal Pain, Black Stool, Bloody Stool, Constipation, Diarrhea, Distension, Stool Incontinence, Vomiting Genitourinary: Denies: Dysuria, Frequency, Burning, Urgency Musculoskeletal: Denies: Neck Pain, Shoulder Pain, Arm Pain Skin: Denies: Cyanosis, Jaundice, Mottled Psychiatric: Denies: Confusion, Depression, Mood Lability Neurological: Reports: Dizziness. Denies: Confusion, Headache, Numbness Exam - Exam Exam: See Below - Vital Signs Vital Signs: Last Vital Signs Temp 35.8 C L 12/11/20 08:39 Pulse 70 12/11/20 08:39 Resp 22 H 12/11/20 08:39 BP 130/84 12/11/20 08:39 Pulse Ox 94 L 12/11/20 08:39 Weight: 59.92 kg - Exam Quality Assessment: Supplemental Oxygen General: Alert, Oriented Neck: Supple Lungs: Decreased Breath Sounds, Rales, Rhonchi Cardiovascular: Regular Rate, Regular Rhythm GI/Abdominal Exam: Normal Bowel Sounds, Soft, Non-Tender Back Exam: Normal Inspection Extremities: Normal Inspection, Normal Range of Motion, Other (Right hand pain and swelling). No: Pedal Edema - Patient Data Lab Results Last 24 hrs: Laboratory Results - last 24 hr 12/11/20 12/11/20 12/11/20 Range/Units 01:00 01:00 01:00 WBC 10.54 (4.0-11.0) K/uL RBC 5.43 (4.50-5.90) M/uL Hgb 17.3 H (13.0-17.0) g/dL Hct 50.2 H (38.0-50.0) % MCV 92.4 (80.0-98.0) fL MCH 31.9 (27.0-32.0) pg MCHC 34.5 (31.0-37.0) g/dL RDW Std Deviation 48.0 (28.0-62.0) fl RDW Coeff of Alva 14 (11.0-15.0) % Plt Count 173 (150-400) K/uL MPV 12.30 H (7.40-12.00) fL Neut % (Auto) 82.2 H (48.0-80.0) % Lymph % (Auto) 9.6 L (16.0-40.0) % Winston % (Auto) 8.0 (0.0-15.0) % Eos % (Auto) 0.1 (0.0-7.0) % Baso % (Auto) 0.1 (0.0-1.5) % Neut # (Auto) 8.7 H (1.4-5.7) K/uL Lymph # (Auto) 1.0 (0.6-2.4) K/uL Winston # (Auto) 0.8 (0.0-0.8) K/uL Eos # (Auto) 0.0 (0.0-0.7) K/uL Baso # (Auto) 0.0 (0.0-0.1) K/uL Nucleated RBC % 0.0 /100WBC Nucleated RBCs # 0 K/uL INR Sodium (136-148) mmol/L Potassium (3.5-5.1) mmol/L Chloride (98-107) mmol/L Carbon Dioxide (21.0-32.0) mmol/L BUN (7.0-18.0) mg/dL Creatinine (0.8-1.3) mg/dL Est Cr Clr Drug Dosing mL/min Estimated GFR (MDRD) ml/min Glucose (74-106) mg/dL Lactic Acid 1.7 (0.4-2.0) mmol/L Calcium (8.5-10.1) mg/dL Total Bilirubin (0.2-1.0) mg/dL AST (15-37) IU/L ALT (14-63) IU/L Alkaline Phosphatase (46-116) U/L Troponin I (0.000-0.056) ng/mL Total Protein (6.4-8.2) g/dL Albumin (3.4-5.0) g/dL Globulin (2.6-4.0) g/dL Albumin/Globulin Ratio (0.9-1.6) SARS-CoV-2 RNA (IGOR) POSITIVE H (NEGATIVE) 12/11/20 12/11/20 Range/Units 01:00 08:31 WBC (4.0-11.0) K/uL RBC (4.50-5.90) M/uL Hgb (13.0-17.0) g/dL Hct (38.0-50.0) % MCV (80.0-98.0) fL MCH (27.0-32.0) pg MCHC (31.0-37.0) g/dL RDW Std Deviation (28.0-62.0) fl RDW Coeff of Alva (11.0-15.0) % Plt Count (150-400) K/uL MPV (7.40-12.00) fL Neut % (Auto) (48.0-80.0) % Lymph % (Auto) (16.0-40.0) % Winston % (Auto) (0.0-15.0) % Eos % (Auto) (0.0-7.0) % Baso % (Auto) (0.0-1.5) % Neut # (Auto) (1.4-5.7) K/uL Lymph # (Auto) (0.6-2.4) K/uL Winston # (Auto) (0.0-0.8) K/uL Eos # (Auto) (0.0-0.7) K/uL Baso # (Auto) (0.0-0.1) K/uL Nucleated RBC % /100WBC Nucleated RBCs # K/uL INR 7.16 H* Sodium 142 (136-148) mmol/L Potassium 4.9 (3.5-5.1) mmol/L Chloride 106 (98-107) mmol/L Carbon Dioxide 27.1 (21.0-32.0) mmol/L BUN 17 (7.0-18.0) mg/dL Creatinine 1.3 (0.8-1.3) mg/dL Est Cr Clr Drug Dosing 39.91 mL/min Estimated GFR (MDRD) 52.9 ml/min Glucose 121 H (74-106) mg/dL Lactic Acid (0.4-2.0) mmol/L Calcium 7.9 L (8.5-10.1) mg/dL Total Bilirubin 1.1 H (0.2-1.0) mg/dL AST 30 (15-37) IU/L ALT 29 (14-63) IU/L Alkaline Phosphatase 195 H (46-116) U/L Troponin I < 0.050 (0.000-0.056) ng/mL Total Protein 5.6 L (6.4-8.2) g/dL Albumin 2.6 L (3.4-5.0) g/dL Globulin 3.0 (2.6-4.0) g/dL Albumin/Globulin Ratio 0.9 (0.9-1.6) SARS-CoV-2 RNA (IGOR) (NEGATIVE) Result Diagrams: 12/11/20 01:00 12/11/20 01:00 Sepsis Event Note - Evaluation Sepsis Screening Result: No Definite Risk - Focused Exam Vital Signs: Vital Signs Temp Pulse Resp BP Pulse Ox Pulse Ox 12/11/20 08:39 35.8 C L 70 22 H 130/84 94 L 12/11/20 06:25 75 122/77 12/11/20 06:21 90 L 90 L 12/11/20 04:56 88/54 L 90 L 12/11/20 04:55 36.4 C 70 22 H 87/59 L 95 12/11/20 04:29 36.4 C 70 22 H 124/95 H 95 12/11/20 03:00 73 22 H 94/64 95 12/11/20 02:00 71 22 H 91/51 L 95 12/11/20 01:00 71 20 97/49 L 96 12/11/20 00:35 36.1 C 76 20 84/43 L 87 L - Problem List (1) Fall in elderly patient SNOMED Code(s): 987014204 ICD Code: R29.6 - REPEATED FALLS Status: Acute Current Visit: Yes (2) Pneumonia due to COVID-19 virus SNOMED Code(s): 158307166964631800 ICD Code: U07.1 - COVID-19; J12.82 - PNEUMONIA DUE TO CORONAVIRUS DISEASE 2019 Status: Acute Current Visit: Yes (3) Respiratory failure with hypoxia SNOMED Code(s): 36706276816293903 ICD Code: J96.91 - RESPIRATORY FAILURE, UNSPECIFIED WITH HYPOXIA Status: Acute Current Visit: Yes (4) Right wrist sprain SNOMED Code(s): 72889933 ICD Code: S63.501A - UNSPECIFIED SPRAIN OF RIGHT WRIST, INITIAL ENCOUNTER Status: Acute Current Visit: Yes (5) CHF (congestive heart failure) SNOMED Code(s): 84324701 ICD Code: I50.9 - HEART FAILURE, UNSPECIFIED Status: Chronic Priority: High Current Visit: No Qualifiers: Qualified Code(s): I50.9 - Heart failure, unspecified (6) Hypertension SNOMED Code(s): 52315377 ICD Code: I10 - ESSENTIAL (PRIMARY) HYPERTENSION Status: Chronic Priority: Medium Current Visit: No Qualifiers: Hypertension type: essential hypertension Qualified Code(s): I10 - Essential (primary) hypertension (7) S/P CABG x 5 SNOMED Code(s): 079604735, 791300141, 176257825 ICD Code: Z95.1 - PRESENCE OF AORTOCORONARY BYPASS GRAFT Status: Chronic Priority: Medium Current Visit: No (8) COPD (chronic obstructive pulmonary disease) SNOMED Code(s): 37943467 ICD Code: J44.9 - CHRONIC OBSTRUCTIVE PULMONARY DISEASE, UNSPECIFIED Status: Acute Current Visit: Yes (9) AICD (automatic cardioverter/defibrillator) present SNOMED Code(s): 409091344, 293102141 ICD Code: Z95.810 - PRESENCE OF AUTOMATIC (IMPLANTABLE) CARDIAC DEFIBRILLATOR Status: Acute Current Visit: Yes (10) Afib SNOMED Code(s): 03689454 ICD Code: I48.91 - UNSPECIFIED ATRIAL FIBRILLATION Status: Acute Current Visit: Yes (11) Elevated INR SNOMED Code(s): 820526625 ICD Code: R79.1 - ABNORMAL COAGULATION PROFILE Status: Acute Current Visit: Yes Problem List Initiated/Reviewed/Updated: Yes Orders Last 24hrs: Active Orders 24 hr Category Date Time Status Patient Status [ADT] Routine ADT 12/11/20 03:03 Active Ambulate [RC] ASDIRECTED Care 12/11/20 03:38 Active Antiembolic Devices [RC] Q12H Care 12/11/20 03:39 Active Oxygen Therapy [RC] PRN Care 12/11/20 03:38 Active Pulse Oximetry [RC] PRN Care 12/11/20 03:38 Active RT Aerosol Therapy [RC] ASDIRECTED Care 12/11/20 03:02 Active RT Aerosol Therapy [RC] ASDIRECTED Care 12/11/20 03:40 Active RT Post Treatment Assessment [RC] Click to Edit Care 12/11/20 03:43 Active RT Pre-Treatment Assessment [RC] Click to Edit Care 12/11/20 03:43 Active Telemetry Monitoring [Cardiac Monitoring] [RC] . Care 12/11/20 04:31 Active DIRECTED VTE/DVT Education [RC] PER UNIT ROUTINE Care 12/11/20 03:38 Active Vital Signs [RC] Q4H Care 12/11/20 03:38 Active Heart Healthy Diet [DIET] Diet 12/11/20 Breakfast Active CBC WITH AUTO DIFF [HEME] AM Lab 12/12/20 05:11 Ordered CBC WITH AUTO DIFF [HEME] AM Lab 12/13/20 05:11 Ordered CBC WITH AUTO DIFF [HEME] AM Lab 12/14/20 05:11 Ordered CBC WITH AUTO DIFF [HEME] AM Lab 12/15/20 05:11 Ordered CMP [COMPREHENSIVE METABOLIC PN,CMP] [CHEM] AM Lab 12/12/20 05:11 Ordered CMP [COMPREHENSIVE METABOLIC PN,CMP] [CHEM] AM Lab 12/13/20 05:11 Ordered CMP [COMPREHENSIVE METABOLIC PN,CMP] [CHEM] AM Lab 12/14/20 05:11 Ordered CMP [COMPREHENSIVE METABOLIC PN,CMP] [CHEM] AM Lab 12/15/20 05:11 Ordered CULTURE BLOOD [BC] Stat Lab 12/11/20 01:00 Received CULTURE BLOOD [BC] Stat Lab 12/11/20 01:30 Received MAGNESIUM [CHEM] AM Lab 12/12/20 05:11 Ordered PHOSPHORUS [CHEM] AM Lab 12/12/20 05:11 Ordered Acetaminophen [TylenoL] Med 12/11/20 03:38 Active 650 mg PO Q4H PRN Albuterol [Proventil Neb Soln] Med 12/11/20 03:38 Active 2.5 mg NEB Q2H PRN Albuterol/Ipratropium [Combivent Respimat] Med 12/11/20 10:00 Active 0 gm INH Q4H Aspirin [Halfprin] Med 12/11/20 09:00 Active 81 mg PO DAILY Citalopram [Celexa] Med 12/11/20 09:30 Active 20 mg PO DAILY Dextromethorphan/guaiFENesin [Robitussin DM] Med 12/11/20 03:43 Active 10 ml PO Q4H PRN Furosemide [Lasix] Med 12/11/20 09:30 Active 20 mg PO DAILY Metoprolol Tartrate [Lopressor] Med 12/11/20 09:30 Active 100 mg PO BID Morphine Med 12/11/20 03:59 Active 0.5 mg IVPUSH Q6H PRN Ondansetron [Zofran] Med 12/11/20 03:38 Active 4 mg IVPUSH Q4H PRN Pantoprazole [ProTONIX IV] Med 12/11/20 09:00 Active 40 mg IV DAILY Remdesivir 100 mg Med 12/12/20 09:00 Active Sodium Chloride 0.9% [Normal Saline] 100 ml IV Q24H Simvastatin [Zocor] Med 12/11/20 21:00 Active 40 mg PO BEDTIME Sodium Chloride 0.9% [Saline Flush] Med 12/11/20 01:17 Active 10 ml FLUSH ASDIRECTED PRN Sodium Chloride 0.9% [Saline Flush] Med 12/11/20 01:17 Active 2.5 ml FLUSH ASDIRECTED PRN Warfarin Sliding Scale [Coumadin Sliding Scale] Med 12/11/20 14:00 Active 0 each PO DAILY@1400 dexAMETHasone Med 12/12/20 09:00 Active 6 mg PO DAILY Blood Culture x2 Reflex Set [OM.PC] Stat Oth 12/11/20 01:17 Ordered DME for Discharge [COMM] Stat Oth 12/11/20 02:40 Ordered Saline Lock Insert [OM.PC] Stat Oth 12/11/20 01:17 Ordered Sequential Compression Device [OM.PC] Per Unit Routine Oth 12/11/20 03:39 Ordered Medication Orders Acetaminophen (Acetaminophen 325 Mg Tab) 650 mg PO Q4H PRN PRN Reason: Pain (Mild 1-3)/fever Albuterol (Albuterol 0.083% 2.5 Mg/3 Ml Neb Soln) 2.5 mg NEB Q2H PRN PRN Reason: Shortness Of Breath/wheezing Albuterol/Ipratropium (Albuterol/Ipratropium 4 Gm Inhalation [place]) 0 gm INH Q4H [facility] Last Admin: 12/11/20 09:10 Dose: 1 puff Documented by: CHAYO Aspirin (Aspirin 81 Mg Tab.Ec) 81 mg PO DAILY [facility] Citalopram Hydrobromide (Citalopram 20 Mg Tablet) 20 mg PO DAILY [facility] Dexamethasone (Dexamethasone 4 Mg Tab) 6 mg PO DAILY [facility] Furosemide (Furosemide 20 Mg Tab) 20 mg PO DAILY [facility] Guaifenesin/Dextromethorphan (Guaifenesin/Dextromethorphan 100-10 Mg/5 Ml Soln 10 Ml Cup) 10 ml PO Q4H PRN PRN Reason: Cough Remdesivir 100 mg/ Sodium (Chloride) 100 mls @ 100 mls/hr IV Q24H [facility] Stop: 12/15/20 09:59 Metoprolol Tartrate (Metoprolol Tartrate 50 Mg Tab) 100 mg PO BID [facility] Morphine Sulfate (Morphine 2 Mg/Ml Syringe) 0.5 mg IVPUSH Q6H PRN PRN Reason: Pain (severe 7-10) Ondansetron HCl (Ondansetron 4 Mg/2 Ml Sdv) 4 mg IVPUSH Q4H PRN PRN Reason: Nausea/Vomiting Pantoprazole Sodium (Pantoprazole 40 Mg Vial) 40 mg IV DAILY [facility] Last Admin: 12/11/20 09:08 Dose: 40 mg Documented by: CHAYO Simvastatin (Simvastatin 40 Mg Tab) 40 mg PO BEDTIME [facility] Sodium Chloride (Sodium Chloride 0.9% 10 Ml Syringe) 10 ml FLUSH ASDIRECTED PRN PRN Reason: Keep Vein Open Last Admin: 12/11/20 01:23 Dose: 10 ml Documented by: MARILYNN Sodium Chloride (Sodium Chloride 0.9% 2.5 Ml Syringe) 2.5 ml FLUSH ASDIRECTED PRN PRN Reason: Keep Vein Open Last Admin: 12/11/20 01:22 Dose: 2.5 ml Documented by: MARILYNN Warfarin Sodium (Warfarin Sliding Scale) 0 each PO DAILY@1400 [facility] Assessment/Plan Comment:: 87-year-old male admitted for acute hypoxic respiratory failure likely secondary to Covid pneumonia Patient also suffered a fall but no acute fractures were noted in his right hand, patient denies hitting his head Start patient on IV remdesivir, start p.o. dexamethasone INR supratherapeutic so will hold off on DVT prophylaxis, no active bleeding as of now, repeat INR in a.m. Hold Coumadin due to the supratherapeutic INR DuoNebs as needed for shortness of breath Combivent scheduled SCDs for DVT prophylaxis Resume home meds as appropriate
[2020-12-11] MEDS: Furosemide 20 MG Tab PO SCH (10:41)
[2020-12-11] MEDS: Metoprolol Tartrate 50 MG Tab PO SCH ×2 (10:42→21:13)
[2020-12-11] MEDS: Warfarin Sliding Scale PO SCH (14:36)
[2020-12-11] MEDS ORDERED: Albuterol Sulfate [Proair Respiclick] 90 MCG Aer.Pow.Ba INH PRN (16:08)
[2020-12-11] MEDS: Simvastatin 40 MG Tab PO SCH (21:13)
[2020-12-12] MEDS: Albuterol/Ipratropium 4 GM Inhalation Spray INH SCH ×6 (02:58→22:46)
[2020-12-12] MEDS: Morphine 2 MG/ML SYRINGE IVPUSH PRN ×2 (03:09→20:16)
[2020-12-12 06:58] LABS: BLOOD UREA NITROGEN,BUN 21 mg/dL (7.0-18.0); CARBON DIOXIDE,CO2 29.5 mmol/L (21.0-32.0); CHLORIDE,CL 105 mmol/L (98-107); GLUCOSE RANDOM 113 mg/dL (74-106); POTASSIUM,K 4.9 mmol/L (3.5-5.1); SODIUM,NA 142 mmol/L (136-148)
[2020-12-12] MEDS: Pantoprazole 40 MG Vial IV SCH (09:23)
[2020-12-12] MEDS: Dexamethasone 4 MG Tab PO SCH (09:24)
[2020-12-12] MEDS: Furosemide 20 MG Tab PO SCH (09:24)
[2020-12-12] MEDS: Metoprolol Tartrate 50 MG Tab PO SCH ×2 (09:27→20:16)
[2020-12-12] MEDS: REMDESIVIR 100 MG in Sodium Chloride 0.9% 100 ML IV SCH (10:25)
--- NOTE | 2020-12-12 10:32 | CT ---
Indication: Fall at home yesterday, on Coumadin Technique: Volumetric multidetector CT images of the head were obtained without the administration of low osmolar intravenous contrast. Comparison: None available Findings: There is no intra-axial or extra-axial fluid collection. There is no mass effect or midline shift. There is age-related cortical atrophy with moderate sulcal widening and ex vacuo dilatation of the lateral ventricles. There are chronic small vessel disease changes in the subcortical and periventricular white matter without lost sharif-white differentiation. The orbits and their contents are grossly within normal limits. The bony calvarium is grossly intact. The paranasal sinuses are clear. The mastoid air cells are well aerated. Impression: Age-related and chronic small-vessel disease changes of the brain without acute intracranial abnormality. Please note that all CT scans at this facility use dose modulation, iterative reconstruction, and/or weight-based dosing when appropriate to reduce radiation dose to as low as reasonably achievable. Dictated by Bart Guan MD @ 12/12/2020 10:32:02 AM (Electronically Signed)
--- NOTE | 2020-12-12 14:05 | PCM.PN ---
- General Info Date of Service: 12/12/20 Admission Dx/Problem (Free Text): Admission Diagnosis/Problem Admission Diagnosis/Problem Respiratory failure with hypoxia Subjective Update: Patient seen at bedside, no acute distress, has been mostly off the oxygen, upon walking the patient's pulse ox did dipped to 84% on room air which go back to 88 once he took some rest. Patient states that he was on home oxygen in the past when he suffered from pneumonia but eventually it was not renewed for him. Patient states that he had a mild nosebleed this morning but no dark stools or bloody stools or any other significant bleeding. Upon further questioning patient states that he might have hit his head in the back as it is a little sore in the back of his head. Functional Status: Reports: Tolerating Diet, Ambulating, Urinating - Review of Systems General: Reports: Weakness, Malaise. Denies: Fever, Fatigue Pulmonary: Reports: Shortness of Breath (On exertion), Cough, Sputum. Denies: Pleuritic Chest Pain Gastrointestinal: Denies: Abdominal Pain, Constipation, Decreased Appetite, Diarrhea, Melena, Nausea, Vomiting Genitourinary: Denies: Dysuria, Frequency, Burning Musculoskeletal: Denies: Neck Pain, Shoulder Pain, Arm Pain Skin: Denies: Cyanosis, Jaundice, Mottled Neurological: Denies: Confusion, Dizziness, Headache - Patient Data Vitals - Most Recent: Last Vital Signs Temp 36.1 C 12/12/20 12:00 Pulse 75 12/12/20 12:00 Resp 20 12/12/20 12:00 BP 102/65 12/12/20 12:00 Pulse Ox 90 L 12/12/20 12:00 Weight - Most Recent: 60.373 kg I&O - Last 24 Hours: Intake & Output 12/11/20 12/12/20 12/12/20 22:59 06:59 14:59 Intake Total 1050 640 Output Total 300 Balance 1050 340 Lab Results Last 24 Hours: Laboratory Results - last 24 hr 12/12/20 12/12/20 12/12/20 Range/Units 06:03 06:03 06:03 WBC 8.47 (4.0-11.0) K/uL RBC 5.15 (4.50-5.90) M/uL Hgb 16.3 (13.0-17.0) g/dL Hct 47.5 (38.0-50.0) % MCV 92.2 (80.0-98.0) fL MCH 31.7 (27.0-32.0) pg MCHC 34.3 (31.0-37.0) g/dL RDW Std Deviation 47.7 (28.0-62.0) fl RDW Coeff of Alva 14 (11.0-15.0) % Plt Count 123 L (150-400) K/uL MPV 11.80 (7.40-12.00) fL Neut % (Auto) 82.2 H (48.0-80.0) % Lymph % (Auto) 10.5 L (16.0-40.0) % Carter % (Auto) 7.2 (0.0-15.0) % Eos % (Auto) 0.0 (0.0-7.0) % Baso % (Auto) 0.1 (0.0-1.5) % Neut # (Auto) 7.0 H (1.4-5.7) K/uL Lymph # (Auto) 0.9 (0.6-2.4) K/uL Carter # (Auto) 0.6 (0.0-0.8) K/uL Eos # (Auto) 0.0 (0.0-0.7) K/uL Baso # (Auto) 0.0 (0.0-0.1) K/uL Nucleated RBC % 0.0 /100WBC Nucleated RBCs # 0 K/uL INR 6.42 Sodium 142 (136-148) mmol/L Potassium 4.9 (3.5-5.1) mmol/L Chloride 105 (98-107) mmol/L Carbon Dioxide 29.5 (21.0-32.0) mmol/L BUN 21 H (7.0-18.0) mg/dL Creatinine 0.9 (0.8-1.3) mg/dL Est Cr Clr Drug Dosing 54.04 mL/min Estimated GFR (MDRD) > 60.0 ml/min Glucose 113 H (74-106) mg/dL Calcium 8.3 L (8.5-10.1) mg/dL Phosphorus 3.0 (2.6-4.7) mg/dL Magnesium 2.1 (1.8-2.4) mg/dL Total Bilirubin 0.8 (0.2-1.0) mg/dL AST 22 (15-37) IU/L ALT 25 (14-63) IU/L Alkaline Phosphatase 178 H (46-116) U/L Total Protein 5.8 L (6.4-8.2) g/dL Albumin 2.5 L (3.4-5.0) g/dL Globulin 3.3 (2.6-4.0) g/dL Albumin/Globulin Ratio 0.8 L (0.9-1.6) Mahad Results Last 24 Hours: Microbiology 12/11/20 01:30 Aerobic Blood Culture - Preliminary Blood - Venous NO GROWTH AFTER 1 DAY Anaerobic Blood Culture - Preliminary NO GROWTH AFTER 1 DAY 12/11/20 01:00 Aerobic Blood Culture - Preliminary Blood - Venous - Lab Draw NO GROWTH AFTER 1 DAY Anaerobic Blood Culture - Preliminary NO GROWTH AFTER 1 DAY Med Orders - Current: Current Medications Acetaminophen (Acetaminophen 325 Mg Tab) 650 mg PO Q4H PRN PRN Reason: Pain (Mild 1-3)/fever Albuterol (Albuterol 0.083% 2.5 Mg/3 Ml Neb Soln) 2.5 mg NEB Q2H PRN PRN Reason: Shortness Of Breath/wheezing Albuterol/Ipratropium (Albuterol/Ipratropium 4 Gm Inhalation [place]) 0 gm INH Q4H [facility] Last Admin: 12/12/20 13:03 Dose: 1 puff Documented by: Citalopram Hydrobromide (Citalopram 20 Mg Tablet) 20 mg PO DAILY [facility] Last Admin: 12/12/20 09:24 Dose: 20 mg Documented by: Dexamethasone (Dexamethasone 4 Mg Tab) 6 mg PO DAILY [facility] Last Admin: 12/12/20 09:24 Dose: 6 mg Documented by: Furosemide (Furosemide 20 Mg Tab) 20 mg PO DAILY [facility] Last Admin: 12/12/20 09:24 Dose: 20 mg Documented by: Guaifenesin/Dextromethorphan (Guaifenesin/Dextromethorphan 100-10 Mg/5 Ml Soln 10 Ml Cup) 10 ml PO Q4H PRN PRN Reason: Cough Remdesivir 100 mg/ Sodium (Chloride) 100 mls @ 100 mls/hr IV Q24H [facility] Stop: 12/15/20 09:59 Last Admin: 12/12/20 10:25 Dose: 100 mls/hr Documented by: Metoprolol Tartrate (Metoprolol Tartrate 50 Mg Tab) 100 mg PO BID [facility] Last Admin: 12/12/20 09:27 Dose: 100 mg Documented by: Morphine Sulfate (Morphine 2 Mg/Ml Syringe) 0.5 mg IVPUSH Q6H PRN PRN Reason: Pain (severe 7-10) Last Admin: 12/12/20 03:09 Dose: 0.5 mg Documented by: Ondansetron HCl (Ondansetron 4 Mg/2 Ml Sdv) 4 mg IVPUSH Q4H PRN PRN Reason: Nausea/Vomiting Pantoprazole Sodium (Pantoprazole 40 Mg Vial) 40 mg IV DAILY [facility] Last Admin: 12/12/20 09:23 Dose: 40 mg Documented by: Albuterol Sulfate [ Proair Respiclick] 90 Mcg Aer.Pow.Ba 1 each INH Q4H PRN PRN Reason: Shortness of Breath Simvastatin (Simvastatin 40 Mg Tab) 40 mg PO BEDTIME [facility] Last Admin: 12/11/20 21:13 Dose: 40 mg Documented by: Sodium Chloride (Sodium Chloride 0.9% 10 Ml Syringe) 10 ml FLUSH ASDIRECTED PRN PRN Reason: Keep Vein Open Last Admin: 12/11/20 01:23 Dose: 10 ml Documented by: Sodium Chloride (Sodium Chloride 0.9% 2.5 Ml Syringe) 2.5 ml FLUSH ASDIRECTED PRN PRN Reason: Keep Vein Open Last Admin: 12/11/20 01:22 Dose: 2.5 ml Documented by: Warfarin Sodium (Warfarin Sliding Scale) 0 each PO DAILY@1400 [facility] Last Admin: 12/11/20 14:36 Dose: Not Given Documented by: Discontinued Medications Hydrocodone Bitart/Acetaminophen (Acetaminophen/Hydrocodone 325-5 Mg Tab) 1 tab PO ONETIME ONE Stop: 12/11/20 04:12 Last Admin: 12/11/20 04:16 Dose: 1 tab Documented by: Albuterol/Ipratropium (Albuterol/Ipratropium 3.0-0.5 Mg/3 Ml Neb Soln) 3 ml NEB ONETIME ONE Stop: 12/11/20 03:03 Last Admin: 12/11/20 03:14 Dose: 3 ml Documented by: Albuterol/Ipratropium (Albuterol/Ipratropium 4 Gm Inhalation [place]) 0 gm INH Q4H [facility] Last Admin: 12/11/20 18:44 Dose: Not Given Documented by: Aspirin (Aspirin 81 Mg Tab.Ec) 81 mg PO DAILY [facility] Last Admin: 12/11/20 10:41 Dose: 81 mg Documented by: Dexamethasone (Dexamethasone 10 Mg/Ml Sdv) 10 mg IVPUSH ONETIME ONE Stop: 12/11/20 02:46 Last Admin: 12/11/20 03:05 Dose: 10 mg Documented by: Enoxaparin Sodium (Enoxaparin 40 Mg/0.4 Ml Syringe) 40 mg SUBCUT Q24H [facility] Last Admin: 12/11/20 18:43 Dose: Not Given Documented by: Sodium Chloride (Normal Saline) 1,000 mls @ 999 mls/hr IV .Bolus ONE Stop: 12/11/20 02:17 Last Admin: 12/11/20 01:22 Dose: 999 mls/hr Documented by: Remdesivir 200 mg/ Sodium (Chloride) 250 mls @ 250 mls/hr IV ONETIME ONE Stop: 12/11/20 02:46 Last Admin: 12/11/20 03:20 Dose: 250 mls/hr Documented by: - Exam General: Alert, Oriented Lungs: Clear to Auscultation, Normal Respiratory Effort Cardiovascular: Regular Rate, Regular Rhythm GI/Abdominal Exam: Normal Bowel Sounds, Soft, Non-Tender Extremities: Normal Inspection, Normal Range of Motion - Patient Data Lab Results Last 24 hrs: Laboratory Results - last 24 hr 12/12/20 12/12/20 12/12/20 Range/Units 06:03 06:03 06:03 WBC 8.47 (4.0-11.0) K/uL RBC 5.15 (4.50-5.90) M/uL Hgb 16.3 (13.0-17.0) g/dL Hct 47.5 (38.0-50.0) % MCV 92.2 (80.0-98.0) fL MCH 31.7 (27.0-32.0) pg MCHC 34.3 (31.0-37.0) g/dL RDW Std Deviation 47.7 (28.0-62.0) fl RDW Coeff of Alva 14 (11.0-15.0) % Plt Count 123 L (150-400) K/uL MPV 11.80 (7.40-12.00) fL Neut % (Auto) 82.2 H (48.0-80.0) % Lymph % (Auto) 10.5 L (16.0-40.0) % Carter % (Auto) 7.2 (0.0-15.0) % Eos % (Auto) 0.0 (0.0-7.0) % Baso % (Auto) 0.1 (0.0-1.5) % Neut # (Auto) 7.0 H (1.4-5.7) K/uL Lymph # (Auto) 0.9 (0.6-2.4) K/uL Carter # (Auto) 0.6 (0.0-0.8) K/uL Eos # (Auto) 0.0 (0.0-0.7) K/uL Baso # (Auto) 0.0 (0.0-0.1) K/uL Nucleated RBC % 0.0 /100WBC Nucleated RBCs # 0 K/uL INR 6.42 Sodium 142 (136-148) mmol/L Potassium 4.9 (3.5-5.1) mmol/L Chloride 105 (98-107) mmol/L Carbon Dioxide 29.5 (21.0-32.0) mmol/L BUN 21 H (7.0-18.0) mg/dL Creatinine 0.9 (0.8-1.3) mg/dL Est Cr Clr Drug Dosing 54.04 mL/min Estimated GFR (MDRD) > 60.0 ml/min Glucose 113 H (74-106) mg/dL Calcium 8.3 L (8.5-10.1) mg/dL Phosphorus 3.0 (2.6-4.7) mg/dL Magnesium 2.1 (1.8-2.4) mg/dL Total Bilirubin 0.8 (0.2-1.0) mg/dL AST 22 (15-37) IU/L ALT 25 (14-63) IU/L Alkaline Phosphatase 178 H (46-116) U/L Total Protein 5.8 L (6.4-8.2) g/dL Albumin 2.5 L (3.4-5.0) g/dL Globulin 3.3 (2.6-4.0) g/dL Albumin/Globulin Ratio 0.8 L (0.9-1.6) Result Diagrams: 12/12/20 06:03 12/12/20 06:03 Mahad Results Last 24 hrs: Microbiology 12/11/20 01:30 Aerobic Blood Culture - Preliminary Blood - Venous NO GROWTH AFTER 1 DAY Anaerobic Blood Culture - Preliminary NO GROWTH AFTER 1 DAY 12/11/20 01:00 Aerobic Blood Culture - Preliminary Blood - Venous - Lab Draw NO GROWTH AFTER 1 DAY Anaerobic Blood Culture - Preliminary NO GROWTH AFTER 1 DAY Sepsis Event Note - Evaluation Sepsis Screening Result: No Definite Risk - Focused Exam Vital Signs: Vital Signs Temp Pulse Pulse Resp BP BP Pulse Ox 12/12/20 12:00 36.1 C 75 20 102/65 90 L 12/12/20 09:27 75 102/65 12/12/20 08:33 35.5 C L 71 22 H 101/48 L 92 L 12/12/20 06:00 90 L 12/12/20 04:28 36 C L 96 20 130/67 90 L Pulse Ox 12/12/20 12:00 12/12/20 09:27 12/12/20 08:33 12/12/20 06:00 89 L 12/12/20 04:28 - Problem List & Annotations (1) Fall in elderly patient SNOMED Code(s): 327352261 Code(s): R29.6 - REPEATED FALLS Status: Acute Current Visit: Yes (2) Pneumonia due to COVID-19 virus SNOMED Code(s): 744727657927762925 Code(s): U07.1 - COVID-19; J12.82 - PNEUMONIA DUE TO CORONAVIRUS DISEASE 2019 Status: Acute Current Visit: Yes (3) Respiratory failure with hypoxia SNOMED Code(s): 33003492493962323 Code(s): J96.91 - RESPIRATORY FAILURE, UNSPECIFIED WITH HYPOXIA Status: Acute Current Visit: Yes (4) Right wrist sprain SNOMED Code(s): 26051092 Code(s): S63.501A - UNSPECIFIED SPRAIN OF RIGHT WRIST, INITIAL ENCOUNTER Status: Acute Current Visit: Yes (5) CHF (congestive heart failure) SNOMED Code(s): 64620503 Code(s): I50.9 - HEART FAILURE, UNSPECIFIED Status: Chronic Priority: High Current Visit: No Qualifiers: Qualified Code(s): I50.9 - Heart failure, unspecified (6) Hypertension SNOMED Code(s): 57973270 Code(s): I10 - ESSENTIAL (PRIMARY) HYPERTENSION Status: Chronic Priority: Medium Current Visit: No Qualifiers: Hypertension type: essential hypertension Qualified Code(s): I10 - Essential (primary) hypertension (7) S/P CABG x 5 SNOMED Code(s): 361320047, 209405499, 064329569 Code(s): Z95.1 - PRESENCE OF AORTOCORONARY BYPASS GRAFT Status: Chronic Priority: Medium Current Visit: No (8) COPD (chronic obstructive pulmonary disease) SNOMED Code(s): 41838377 Code(s): J44.9 - CHRONIC OBSTRUCTIVE PULMONARY DISEASE, UNSPECIFIED Status: Acute Current Visit: Yes (9) AICD (automatic cardioverter/defibrillator) present SNOMED Code(s): 662681433, 558057149 Code(s): Z95.810 - PRESENCE OF AUTOMATIC (IMPLANTABLE) CARDIAC DEFIBRILLATOR Status: Acute Current Visit: Yes (10) Afib SNOMED Code(s): 53688523 Code(s): I48.91 - UNSPECIFIED ATRIAL FIBRILLATION Status: Acute Current Visit: Yes (11) Elevated INR SNOMED Code(s): 172713314 Code(s): R79.1 - ABNORMAL COAGULATION PROFILE Status: Acute Current Visit: Yes - Problem List Review Problem List Initiated/Reviewed/Updated: Yes - My Orders Last 24 Hours: My Active Orders 12/11/20 14:00 Warfarin Sliding Scale [Coumadin Sliding Scale] 0 each PO DAILY@1400 12/11/20 16:08 Patient's Own Medication [Ptom] 1 each INH Q4H PRN 12/11/20 21:00 Simvastatin [Zocor] 40 mg PO BEDTIME 12/12/20 09:00 Remdesivir 100 mg Sodium Chloride 0.9% [Normal Saline] 100 ml IV Q24H dexAMETHasone 6 mg PO DAILY 12/12/20 09:20 PT Evaluation and Treatment [CONS] Routine 12/13/20 05:11 CBC WITH AUTO DIFF [HEME] AM CMP [COMPREHENSIVE METABOLIC PN,CMP] [CHEM] AM 12/14/20 05:11 CBC WITH AUTO DIFF [HEME] AM CMP [COMPREHENSIVE METABOLIC PN,CMP] [CHEM] AM 12/15/20 05:11 CBC WITH AUTO DIFF [HEME] AM CMP [COMPREHENSIVE METABOLIC PN,CMP] [CHEM] AM - Plan Plan:: 87-year-old male admitted for acute hypoxic respiratory failure likely secondary to Covid pneumonia Patient also suffered a fall but no acute fractures were noted in his right hand, patient initially denied hitting his head but today states that he might have hit the back of his head in the process of bracing himself, will order a CT head to rule out any bleeding given that patient has supratherapeutic INR Although patient does not need oxygen while resting but seems like on ambulation his oxygenation is dropping, will continue IV remdesivir for now INR supratherapeutic which is improving, will hold off on DVT prophylaxis, no active bleeding as of now, repeat INR in a.m. Hold Coumadin due to the supratherapeutic INR DuoNebs as needed for shortness of breath Combivent scheduled SCDs for DVT prophylaxis Resume home meds as appropriate physical therapy was consulted due to patient's history of fall,
[2020-12-12] MEDS: Warfarin Sliding Scale PO SCH (14:59)
[2020-12-12] MEDS: Simvastatin 40 MG Tab PO SCH (20:16)
[2020-12-13] MEDS: Albuterol/Ipratropium 4 GM Inhalation Spray INH SCH ×3 (01:15→10:38)
[2020-12-13 05:27] LABS: BLOOD UREA NITROGEN,BUN 24 mg/dL (7.0-18.0); CARBON DIOXIDE,CO2 34.2 mmol/L (21.0-32.0); CHLORIDE,CL 104 mmol/L (98-107); GLUCOSE RANDOM 90 mg/dL (74-106); POTASSIUM,K 5.2 mmol/L (3.5-5.1); SODIUM,NA 142 mmol/L (136-148)
[2020-12-13] MEDS: Pantoprazole 40 MG Vial IV SCH (08:05)
[2020-12-13] MEDS: REMDESIVIR 100 MG in Sodium Chloride 0.9% 100 ML IV SCH (08:11)
[2020-12-13] MEDS: Metoprolol Tartrate 50 MG Tab PO SCH (08:12)
[2020-12-13] MEDS: Furosemide 20 MG Tab PO SCH (08:12)
[2020-12-13] MEDS: Dexamethasone 4 MG Tab PO SCH (08:12)
[2020-12-13 08:14] VITALS: BP 108/67; PULSE 74
--- NOTE | 2020-12-13 13:08 | PCM.DCSUM1 ---
Discharge Summary - Hospital Course Diagnosis: Stroke: No - Discharge Data Discharge Date: 12/13/20 Discharge Disposition: Home, Self-Care 01 Condition: Fair - Referral to Home Health Primary Care Physician: Jim Mandel MD - Discharge Diagnosis/Problem(s) (1) Fall in elderly patient SNOMED Code(s): 521004352 ICD Code: R29.6 - REPEATED FALLS Status: Acute Current Visit: Yes (2) Pneumonia due to COVID-19 virus SNOMED Code(s): 526421553656174925 ICD Code: U07.1 - COVID-19; J12.82 - PNEUMONIA DUE TO CORONAVIRUS DISEASE 2018 Status: Acute Current Visit: Yes (3) Respiratory failure with hypoxia SNOMED Code(s): 43098840791828822 ICD Code: J96.91 - RESPIRATORY FAILURE, UNSPECIFIED WITH HYPOXIA Status: Acute Current Visit: Yes (4) Right wrist sprain SNOMED Code(s): 25693660 ICD Code: S63.501A - UNSPECIFIED SPRAIN OF RIGHT WRIST, INITIAL ENCOUNTER Status: Acute Current Visit: Yes (5) CHF (congestive heart failure) SNOMED Code(s): 62486069 ICD Code: I50.9 - HEART FAILURE, UNSPECIFIED Status: Chronic Priority: High Current Visit: No Qualifiers: Qualified Code(s): I50.9 - Heart failure, unspecified (6) Hypertension SNOMED Code(s): 89556087 ICD Code: I10 - ESSENTIAL (PRIMARY) HYPERTENSION Status: Chronic Priority: Medium Current Visit: No Qualifiers: Hypertension type: essential hypertension Qualified Code(s): I10 - Essential (primary) hypertension (7) S/P CABG x 5 SNOMED Code(s): 305308720, 287696491, 004120731 ICD Code: Z95.1 - PRESENCE OF AORTOCORONARY BYPASS GRAFT Status: Chronic Priority: Medium Current Visit: No (8) COPD (chronic obstructive pulmonary disease) SNOMED Code(s): 94575542 ICD Code: J44.9 - CHRONIC OBSTRUCTIVE PULMONARY DISEASE, UNSPECIFIED Status: Acute Current Visit: Yes (9) AICD (automatic cardioverter/defibrillator) present SNOMED Code(s): 501856269, 892057003 ICD Code: Z95.810 - PRESENCE OF AUTOMATIC (IMPLANTABLE) CARDIAC DEFIBRILLATOR Status: Acute Current Visit: Yes (10) Afib SNOMED Code(s): 97321638 ICD Code: I48.91 - UNSPECIFIED ATRIAL FIBRILLATION Status: Acute Current Visit: Yes (11) Elevated INR SNOMED Code(s): 676226195 ICD Code: R79.1 - ABNORMAL COAGULATION PROFILE Status: Acute Current Visit: Yes - Patient Summary/Data Consults: Consultations 12/12/20 09:20 PT Evaluation and Treatment [CONS] Routine - Patient Instructions Diet: Heart Healthy Diet Activity: As Tolerated Driving: Do Not Drive Showering/Bathing: May Shower Notify Provider of: Fever, Increased Pain, Swelling and Redness, Drainage, Nausea and/or Vomiting Other/Special Instructions: Please take warfarin 2mg daily , on Friday12/18/20 you are schedued to get your INR checked to determine the further dosage of warfarin. - Discharge Plan *PRESCRIPTION DRUG MONITORING PROGRAM REVIEWED*: No *COPY OF PRESCRIPTION DRUG MONITORING REPORT IN PATIENT MARIE: No Prescriptions/Med Rec: dexAMETHasone [Dexamethasone] 6 mg PO DAILY #5 tablet Dextromethorphan/guaiFENesin [Robitussin DM] 10 ml PO Q4H PRN #1 bottle PRN Reason: Cough Home Medications: Home Meds Aspirin [Ecotrin] 81 mg PO DAILY 11/15/14 [History] Citalopram [Celexa] 20 mg PO DAILY 11/15/14 [History] Losartan [Cozaar] 50 mg PO BEDTIME 11/15/14 [History] Simvastatin 40 mg PO BEDTIME 11/15/14 [History] Terazosin [Hytrin] 2 mg PO BEDTIME 11/15/14 [History] Metoprolol Tartrate [Lopressor] 100 mg PO BID 11/17/14 [History] Multivit-Min/FA/Lycopen/Lutein [Centrum Silver Tablet] 1 tab PO DAILY 11/17/14 [History] Spironolactone [Aldactone] 25 mg PO DAILY 02/19/17 [History] Albuterol Sulfate [Proair Respiclick] 90 mcg IH Q4H PRN 12/11/20 [History] Furosemide 20 mg PO DAILY 12/11/20 [History] Warfarin Sodium [Jantoven] 2 mg PO SUTUWEFRSA 12/11/20 [History] Warfarin Sodium [Jantoven] 3 mg PO MOTH 12/11/20 [History] Dextromethorphan/guaiFENesin [Robitussin DM] 10 ml PO Q4H PRN #1 bottle 12/13/20 [Rx] dexAMETHasone [Dexamethasone] 6 mg PO DAILY #5 tablet 12/13/20 [Rx] Oxygen Therapy Mode: Nasal Cannula (on ambulation) Patient Handouts: Ipratropium; Albuterol Inhalation [place] (Combivent Respimat), COVID-19, Chronic Obstructive Pulmonary Disease, Warfarin Coagulopathy, Home Oxygen Use, Adult, Guaifenesin oral solution and syrup, Wrist Sprain, Adult, Frequently Asked Questions About COVID-19 Vaccination - [facility] (08/08/2020), COVID- 19: Quarantine vs. Isolation - [facility] (02/10/2020), Dexamethasone tablets Referrals: Jim Mandel MD [Primary Care Provider] - 12/26/20 9:00 am - Patient Data Vitals - Most Recent: Last Vital Signs Temp 2.7 C L 12/13/20 08:00 Pulse 74 12/13/20 08:12 Resp 16 12/13/20 08:00 BP 108/67 12/13/20 08:12 Pulse Ox 91 L 12/13/20 08:00 Weight - Most Recent: 60.373 kg I&O - Last 24 hours: Intake & Output 12/12/20 12/13/20 12/13/20 22:59 06:59 14:59 Intake Total 720 800 Balance 720 800 Lab Results - Last 24 hrs: Laboratory Results - last 24 hr 12/13/20 12/13/20 12/13/20 Range/Units 04:40 04:40 04:40 WBC 6.90 (4.0-11.0) K/uL RBC 5.07 (4.50-5.90) M/uL Hgb 15.9 (13.0-17.0) g/dL Hct 46.8 (38.0-50.0) % MCV 92.3 (80.0-98.0) fL MCH 31.4 (27.0-32.0) pg MCHC 34.0 (31.0-37.0) g/dL RDW Std Deviation 48.5 (28.0-62.0) fl RDW Coeff of Alva 14 (11.0-15.0) % Plt Count 114 L (150-400) K/uL MPV 12.20 H (7.40-12.00) fL Neut % (Auto) 82.6 H (48.0-80.0) % Lymph % (Auto) 10.3 L (16.0-40.0) % Person % (Auto) 7.1 (0.0-15.0) % Eos % (Auto) 0.0 (0.0-7.0) % Baso % (Auto) 0.0 (0.0-1.5) % Neut # (Auto) 5.7 (1.4-5.7) K/uL Lymph # (Auto) 0.7 (0.6-2.4) K/uL Person # (Auto) 0.5 (0.0-0.8) K/uL Eos # (Auto) 0.0 (0.0-0.7) K/uL Baso # (Auto) 0.0 (0.0-0.1) K/uL Nucleated RBC % 0.0 /100WBC Nucleated RBCs # 0 K/uL INR 2.94 Sodium 142 (136-148) mmol/L Potassium 5.2 H (3.5-5.1) mmol/L Chloride 104 (98-107) mmol/L Carbon Dioxide 34.2 H (21.0-32.0) mmol/L BUN 24 H (7.0-18.0) mg/dL Creatinine 0.9 (0.8-1.3) mg/dL Est Cr Clr Drug Dosing 54.04 mL/min Estimated GFR (MDRD) > 60.0 ml/min Glucose 90 (74-106) mg/dL Calcium 8.1 L (8.5-10.1) mg/dL Total Bilirubin 0.7 (0.2-1.0) mg/dL AST 21 (15-37) IU/L ALT 25 (14-63) IU/L Alkaline Phosphatase 168 H (46-116) U/L Total Protein 5.5 L (6.4-8.2) g/dL Albumin 2.4 L (3.4-5.0) g/dL Globulin 3.1 (2.6-4.0) g/dL Albumin/Globulin Ratio 0.8 L (0.9-1.6) [facility]ALL Results - Last 24 hrs: Microbiology 12/11/20 01:30 Aerobic Blood Culture - Preliminary Blood - Venous NO GROWTH AFTER 2 DAYS Anaerobic Blood Culture - Preliminary NO GROWTH AFTER 2 DAYS 12/11/20 01:00 Aerobic Blood Culture - Preliminary Blood - Venous - Lab Draw NO GROWTH AFTER 2 DAYS Anaerobic Blood Culture - Preliminary NO GROWTH AFTER 2 DAYS Med Orders - Current: Current Medications Acetaminophen (Acetaminophen 325 Mg Tab) 650 mg PO Q4H PRN PRN Reason: Pain (Mild 1-3)/fever Albuterol (Albuterol 0.083% 2.5 Mg/3 Ml Neb Soln) 2.5 mg NEB Q2H PRN PRN Reason: Shortness Of Breath/wheezing Albuterol/Ipratropium (Albuterol/Ipratropium 4 Gm Inhalation [place]) 0 gm INH Q4H [facility] Last Admin: 12/13/20 10:38 Dose: 1 puff Documented by: Citalopram Hydrobromide (Citalopram 20 Mg Tablet) 20 mg PO DAILY [facility] Last Admin: 12/13/20 08:12 Dose: 20 mg Documented by: Dexamethasone (Dexamethasone 4 Mg Tab) 6 mg PO DAILY [facility] Last Admin: 12/13/20 08:12 Dose: 6 mg Documented by: Furosemide (Furosemide 20 Mg Tab) 20 mg PO DAILY [facility] Last Admin: 12/13/20 08:12 Dose: 20 mg Documented by: Guaifenesin/Dextromethorphan (Guaifenesin/Dextromethorphan 100-10 Mg/5 Ml Soln 10 Ml Cup) 10 ml PO Q4H PRN PRN Reason: Cough Remdesivir 100 mg/ Sodium (Chloride) 100 mls @ 100 mls/hr IV Q24H [facility] Stop: 12/15/20 09:59 Last Admin: 12/13/20 08:11 Dose: 100 mls/hr Documented by: Metoprolol Tartrate (Metoprolol Tartrate 50 Mg Tab) 100 mg PO BID [facility] Last Admin: 12/13/20 08:12 Dose: 100 mg Documented by: Morphine Sulfate (Morphine 2 Mg/Ml Syringe) 0.5 mg IVPUSH Q6H PRN PRN Reason: Pain (severe 7-10) Last Admin: 12/12/20 20:16 Dose: 0.5 mg Documented by: Ondansetron HCl (Ondansetron 4 Mg/2 Ml Sdv) 4 mg IVPUSH Q4H PRN PRN Reason: Nausea/Vomiting Pantoprazole Sodium (Pantoprazole 40 Mg Vial) 40 mg IV DAILY [facility] Last Admin: 12/13/20 08:05 Dose: 40 mg Documented by: Albuterol Sulfate [ Proair Respiclick] 90 Mcg Aer.Pow.Ba 1 each INH Q4H PRN PRN Reason: Shortness of Breath Simvastatin (Simvastatin 40 Mg Tab) 40 mg PO BEDTIME [facility] Last Admin: 12/12/20 20:16 Dose: 40 mg Documented by: Sodium Chloride (Sodium Chloride 0.9% 10 Ml Syringe) 10 ml FLUSH ASDIRECTED PRN PRN Reason: Keep Vein Open Last Admin: 12/11/20 01:23 Dose: 10 ml Documented by: Sodium Chloride (Sodium Chloride 0.9% 2.5 Ml Syringe) 2.5 ml FLUSH ASDIRECTED PRN PRN Reason: Keep Vein Open Last Admin: 12/11/20 01:22 Dose: 2.5 ml Documented by: Warfarin Sodium (Warfarin Sliding Scale) 0 each PO DAILY@1400 [facility] Last Admin: 12/12/20 14:59 Dose: Not Given Documented by: Discontinued Medications Hydrocodone Bitart/Acetaminophen (Acetaminophen/Hydrocodone 325-5 Mg Tab) 1 tab PO ONETIME ONE Stop: 12/11/20 04:12 Last Admin: 12/11/20 04:16 Dose: 1 tab Documented by: Albuterol/Ipratropium (Albuterol/Ipratropium 3.0-0.5 Mg/3 Ml Neb Soln) 3 ml NEB ONETIME ONE Stop: 12/11/20 03:03 Last Admin: 12/11/20 03:14 Dose: 3 ml Documented by: Albuterol/Ipratropium (Albuterol/Ipratropium 4 Gm Inhalation [place]) 0 gm INH Q4H [facility] Last Admin: 12/11/20 18:44 Dose: Not Given Documented by: Aspirin (Aspirin 81 Mg Tab.Ec) 81 mg PO DAILY [facility] Last Admin: 12/11/20 10:41 Dose: 81 mg Documented by: Dexamethasone (Dexamethasone 10 Mg/Ml Sdv) 10 mg IVPUSH ONETIME ONE Stop: 12/11/20 02:46 Last Admin: 12/11/20 03:05 Dose: 10 mg Documented by: Enoxaparin Sodium (Enoxaparin 40 Mg/0.4 Ml Syringe) 40 mg SUBCUT Q24H [facility] Last Admin: 12/11/20 18:43 Dose: Not Given Documented by: Sodium Chloride (Normal Saline) 1,000 mls @ 999 mls/hr IV .Bolus ONE Stop: 12/11/20 02:17 Last Admin: 12/11/20 01:22 Dose: 999 mls/hr Documented by: Remdesivir 200 mg/ Sodium (Chloride) 250 mls @ 250 mls/hr IV ONETIME ONE Stop: 12/11/20 02:46 Last Admin: 12/11/20 03:20 Dose: 250 mls/hr Documented by:
== END 2020-12-13 14:25 | disposition home or self-care (01) | DRG 177 ==
LOC: MW.ED 23:54 → MW.MS 12-11 03:03
PROVIDERS: ADMIT Student in an Organized Health Care Education/Training Program; ATTEND Student in an Organized Health Care Education/Training Program
PROC: 8E0ZXY6 Isolation (ICD-10-PCS; principal; 2020-12-10)
PROC: XW033E5 Introduction of Remdesivir Anti-infective into Peripheral Vein, Percutaneous Approach, New Technology Group 5 (ICD-10-PCS; 2020-12-10)
PROC: 3E0333Z Introduction of Anti-inflammatory into Peripheral Vein, Percutaneous Approach (ICD-10-PCS; 2020-12-10)
DX: U07.1 COVID-19 (principal); J12.89 Other viral pneumonia; J96.91 Respiratory failure, unspecified with hypoxia; J12.82 Pneumonia due to coronavirus disease 2019; W01.0XXA Fall on same level from slipping, tripping and stumbling without subsequent striking against object, initial encounter; I95.9 Hypotension, unspecified; F17.210 Nicotine dependence, cigarettes, uncomplicated; H35.30 Unspecified macular degeneration; J96.01 Acute respiratory failure with hypoxia; S63.501A Unspecified sprain of right wrist, initial encounter; I50.9 Heart failure, unspecified; I11.0 Hypertensive heart disease with heart failure; J44.9 Chronic obstructive pulmonary disease, unspecified; W18.30XA Fall on same level, unspecified, initial encounter; Z79.82 Long term (current) use of aspirin; Z99.81 Dependence on supplemental oxygen; Z79.52 Long term (current) use of systemic steroids; Z79.899 Other long term (current) drug therapy; I48.91 Unspecified atrial fibrillation; R79.1 Abnormal coagulation profile; R29.6 Repeated falls; I25.10 Atherosclerotic heart disease of native coronary artery without angina pectoris; E78.5 Hyperlipidemia, unspecified; K21.9 Gastro-esophageal reflux disease without esophagitis; Z98.890 Other specified postprocedural states; Z90.89 Acquired absence of other organs; Y92.89 Other specified places as the place of occurrence of the external cause; Z95.1 Presence of aortocoronary bypass graft; Z87.01 Personal history of pneumonia (recurrent); Z95.810 Presence of automatic (implantable) cardiac defibrillator
CPT/HCPCS: 36415; 71045; 73110; 73130; 80053; 83605; 84484; 85025; 87040 ×2; 99285; J7030; U0002; 70450; 70450-26; 83735; 84100; 85610; 93005; 94640; 97161-GP; A9270-GY; C9113; J1100; J2270; J7050; J7620-GY; J8540

== ENCOUNTER 2020-12-25 12:06 | Inpatient (IN) | payer MEDICARE, OTHER ==
[2020-12-25] MEDS ORDERED: Sodium Chloride 0.9% 2.5 ML Syringe FLUSH PRN (12:18)
[2020-12-25] MEDS ORDERED: Sodium Chloride 0.9% 1,000 ML IV ONE ×3 (12:18→14:49)
[2020-12-25] MEDS ORDERED: Sodium Chloride 0.9% 10 ML Syringe FLUSH PRN (12:18)
--- NOTE | 2020-12-25 12:22 | EDM.PDOC ---
ED HPI GENERAL MEDICAL PROBLEM - General Chief Complaint: Respiratory Problem Stated Complaint: SPOUSE STATES PT IS COVID POSITIVE Time Seen by Provider: 12/25/20 12:08 Source of Information: Reports: Patient History Limitations: Reports: No Limitations - History of Present Illness INITIAL COMMENTS - FREE TEXT/NARRATIVE: HISTORY AND PHYSICAL: History of present illness: Patient is an 80-year-old male who presents to the emergency room with complaints of increased shortness of breath, fatigue and generally feeling unwell and confusion. Patient was admitted to the hospital on 12/11/2020 with respiratory failure, hypoxia and COVID pneumonia. Patient was discharged 2 days later and put home oxygen. His states that he has progressively worsened over the past week and a half and feels he is confused.She states he is requiring more assistance the past few days, he's "shaky and very unsteady on his feet". He did fall forward off the toilet yesterday, although did not hit his head nor have any LOC. Past medical history of congestive heart failure, COPD, CAD, status post AICD, atrial fibrillation, hypertension and currently takes Coumadin. Former smoker, 50-year history ( states he still "sneaks cigarettes"). Daily drinker. Patient denies any fever, chills, headache, change in vision, syncope or near syncope. Denies any chest pain, back pain, abdominal pain, nausea, vomiting, diarrhea, constipation or dysuria. Has not noted any blood in urine or stool. Patient has been eating and drinking appropriately. No recent travel or sick contacts. Review of systems: As per history of present illness and below otherwise all systems reviewed and negative. Past medical history: As per history of present illness and as reviewed below otherwise noncontribu tory. Surgical history: As per history of present illness and as reviewed below otherwise noncontributory. Social history: See social history for further information Family history: As per history of present illness and as reviewed below otherwise noncontributory. Physical exam: General: Chronically ill appearing 80 year old male. Alert and orientated x 3. Appears in mild/moderate respiratory distress. Vital signs are stable and have been reviewed by me. Nursing notes were reviewed. at bedside HEENT: Atraumatic, normocephalic, pupils equal and reactive bilaterally, negative for conjunctival pallor or scleral icterus, mucous membranes dry/tacky, TMs normal bilaterally, throat clear, neck supple, nontender, trachea midline. No drooling or trismus noted. No meningeal signs. No hot potato voice noted. Lungs: Tight, poor air exchange with fine exp wheezing to auscultation bilaterally. No rales, or rhonchi. Chest nontender. Moderate work of breathing and mild accessory muscles used. Heart: Irregular with tachycardia. Mild JVD. No peripheral edema Abdomen: Soft, nondistended, nontender. Normoactive bowel sounds. Negative for masses or costovertebral tenderness. Skin: Healing abrasion to right torres. Intact, cool, dry. No lesions or rashes noted. Hematologic: No petechiae or purpra. Mucosa appropriate color and normal nail bed color and refill. Extremities: Atraumatic, moves all extremities per self without difficulty or deficits, negative for cords or calf pain. Neurovascular unremarkable. Neuro: Awake, alert, oriented. Cranial nerves II through XII unremarkable. Cereb ellum unremarkable. Motor and sensory unremarkable throughout. Exam nonfocal. Psychiatric: Mood and affect are appropriate. Normal thought process. Answering questions appropriately. Please note that the patient was seen and evaluated during the 2019 SARS-CoV-2 novel coronavirus pandemic period. Community viral transmission is ongoing at time of this encounter and the emergency department is operating under pandemic response procedures. Medical Decision Making: Patient is an 80-year-old male who is brought to the emergency room by his with complaints of increased shortness of breath since being discharged from the hospital 2 weeks ago. Upon arrival the patient is dyspneic and has poor air exchange with fine expiratory wheezing bilaterally. He is in atrial fibrillation with a rate between 120s and 160s. Patient was placed on oxygen, initial saturation was 78% on room air. He is 92% on 5L per n/c. He appears clinically dehydrated, skin is dry with dry mucosa. Dr Feng was involved in this complex case. Initially blood pressure was 105/63, with HR 120-160's. My initial plan was to give him some Metoprolol for his pulse rate; but repeat BP shows 70's/40's. 1 liter NS bolus ordered, continue to monitor his BP's. BP remaining relatively the same 70's/40's, pulse is responding to fluids 80's- 120's. Patient has a leukocytosis of 16.31. Critical labs: Troponin 0.076 (lik kristi demand ischemia) and INR is greater than 13.83. BUN and Creatinine (H) 68 and 2.2 (was 24 and 0.9 on 12/13/20). Elevated lactate at 3.6. Blood cultures have already been drawn. BNP 354. Vancomycin and Cefepime ordered/running. Did have RT come to place patient on BiPAP for comfort purposes, placed on RT settings. Lung sounds reassessed, no crackles noted. Will do a second liter of NS for lactate/BP control. Chest x-ray shows a new left base opacity due to any combination of atelectasis, pneumonia and loculated pleural fluid. Some to loculated pleural fluid noted along the lateral left chest. New atelectasis or infiltrate in the medial right base. Stable mild cardiomegaly with AICD and sternal wires. Patient is tolerating BiPap well. His blood pressures are currently 90's/40's, sating 93% with HR 100-120's. I have spoke with the about CODE status, she wants to call family before making a decision about status. States she doesn't want him transferred. We discussed our limited capabilities here and why transfer would be beneficial if he is wanting aggressive care. has brought the son to talk with patient, myself and Dr Feng about code status, expectations, and services available here. Patient and family agree that they want to stay here and are aware of the limited services. Patient will be comfort care. He doesn't wish for CPR or intubation, rather continue the antibiotics and use the BiPaP. He is aware this could result in due to the severity of his current illness/state. 3 hour repeat troponin is trending downward at 0.064. Dr Valle was called a bout this patient. She is aware and agreeable to keeping this patient for further care and management. Pastoral care was called per patient/family request. Diagnostics: CBC, CMP, Troponin, INR, EKG, CXR, COVID, Mag, UA, BC x 2, Lactic Therapeutics: NS 500mls bolus then @ 125mls/hr, Vancomycin, Cefapime, Vitamin K 10 IV, Solu- medrol Impression: Respiratory failure Renal insufficiency COVID pneumonia Supratherapeutic INR level Atrial fibrillation with RVR Plan: Inpatient admission Definitive disposition and diagnosis as appropriate pending reevaluation and review of above. - Related Data Allergies Allergy/AdvReac Type Severity Reaction Status Date / Time No Known Allergies Allergy Verified 12/25/20 12:25 Home Meds: Home Meds Aspirin [Ecotrin] 81 mg PO DAILY 11/15/14 [History] Citalopram [Celexa] 20 mg PO DAILY 11/15/14 [History] Losartan [Cozaar] 50 mg PO BEDTIME 11/15/14 [History] Simvastatin 40 mg PO BEDTIME 11/15/14 [History] Terazosin [Hytrin] 2 mg PO BEDTIME 11/15/14 [History] Metoprolol Tartrate [Lopressor] 100 mg PO BID 11/17/14 [History] Multivit-Min/FA/Lycopen/Lutein [Centrum Silver Tablet] 1 tab PO DAILY 11/17/14 [History] Spironolactone [Aldactone] 25 mg PO DAILY 02/19/17 [History] Albuterol Sulfate [Proair Respiclick] 90 mcg IH Q4H PRN 12/11/20 [History] Furosemide 20 mg PO DAILY 12/11/20 [History] Warfarin Sodium [Jantoven] 2 mg PO [id number] 12/11/20 [History] Warfarin Sodium [Jantoven] 3 mg PO MOTH 12/11/20 [History] Dextromethorphan/guaiFENesin [Robitussin DM] 10 ml PO Q4H PRN #1 bottle 12/13/20 [Rx] dexAMETHasone [Dexamethasone] 6 mg PO DAILY #5 tablet 12/13/20 [Rx] Past Medical History HEENT History: Reports: Impaired Vision, Macular Degeneration Cardiovascular History: Reports: Afib, Automatic Implantable Cardioverter Defibrillators, Bypass, Heart Failure, High Cholesterol, Hypertension, Pacemaker, SOB on Exertion Respiratory History: Reports: COPD, SOB, Other (See Below) Other Respiratory History: History of Pneumonia 10/2014,. per pt he used to use oxygen as needed at home but not anymore. Gastrointestinal History: Reports: GERD Genitourinary History: Reports: None Musculoskeletal History: Reports: Fracture Other Musculoskeletal History: pelvis fracture Neurological History: Reports: None Psychiatric History: Reports: None Endocrine/Metabolic History: Reports: None Hematologic History: Reports: None Immunologic History: Reports: None Oncologic (Cancer) History: Reports: None Dermatologic History: Reports: None - Infectious Disease History Infectious Disease History: Reports: C-Difficile, Chicken Pox, Influenza, Measles, Mumps - Past Surgical History HEENT Surgical History: Reports: Adenoidectomy, Eye Surgery, Oral Surgery, Tonsillectomy Other HEENT Surgeries/Procedures: wears glasses, upper and lower dentures Cardiovascular Surgical History: Reports: Pacer, Other (See Below) Other Cardiovascular Surgeries/Procedures: 5 bypass surgery. AICD surgery (4 times - revisions) Social & Family History - Family History Family Medical History: No Pertinent Family History - Caffeine Use Caffeine Use: Reports: Coffee, Soda ED ROS GENERAL - Review of Systems Review Of Systems: Comprehensive ROS is negative, except as noted in HPI. ED EXAM, GENERAL - Physical Exam Exam: See Below (See dictation) Course - Vital Signs Last Recorded V/S: Last Vital Signs Temp 97 F 12/25/20 12:10 Pulse 125 H 12/25/20 15:43 Resp 28 H 12/25/20 12:10 BP 73/47 L 12/25/20 15:43 Pulse Ox 89 L 12/25/20 15:43 - Orders/Labs/Meds Orders: Active Orders 24 hr Category Date Time Status BIPAP Adult [RT BiPAP/CPAP] [RC] ASDIRECTED Care 12/25/20 13:12 Active Cardiac Monitoring [RC] . DIRECTED Care 12/25/20 12:19 Active Nguyen Catheter Insertion [Insert Urinary Catheter] [OM. Care 12/25/20 15:30 Ordered PC] Q24H Oxygen Therapy, ED [RC] ASDIRECTED Care 12/25/20 12:19 Active RT Aerosol Therapy [RC] ASDIRECTED Care 12/25/20 14:56 Active Urinary Catheter Assessment [RC] ASDIRECTED Care 12/25/20 15:16 Active CULTURE BLOOD [BC] Stat Lab 12/25/20 12:20 Received CULTURE BLOOD [BC] Stat Lab 12/25/20 12:42 Received Sodium Chloride 0.9% [Normal Saline] 1,000 ml Med 12/25/20 12:18 Active IV STAT Sodium Chloride 0.9% [Normal Saline] 1,000 ml Med 12/25/20 14:49 Active IV STAT Sodium Chloride 0.9% [Saline Flush] Med 12/25/20 12:18 Active 10 ml FLUSH ASDIRECTED PRN Sodium Chloride 0.9% [Saline Flush] Med 12/25/20 12:18 Active 2.5 ml FLUSH ASDIRECTED PRN Blood Culture x2 Reflex Set [OM.PC] Stat Oth 12/25/20 12:18 Ordered Saline Lock Insert [OM.PC] Stat Oth 12/25/20 12:18 Ordered Medication Orders Sodium Chloride (Normal Saline) 1,000 mls @ 125 mls/hr IV STAT ONE Stop: 12/25/20 20:17 Last Admin: 12/25/20 12:24 Dose: 125 mls/hr Documented by: WILBUR Sodium Chloride (Normal Saline) 1,000 mls @ 100 mls/hr IV STAT ONE Stop: 12/26/20 00:48 Last Admin: 12/25/20 14:53 Dose: 100 mls/hr Documented by: WILBUR Piperacillin Sod/Tazobactam (Sod 3.375 gm/ Sodium Chloride) 50 mls @ 100 mls/hr IV Q8H [facility] Vancomycin HCl 1 gm/ Sodium (Chloride) 250 mls @ 250 mls/hr IV Q24H [facility] Lorazepam (Lorazepam 2 Mg/Ml Sdv) 1 mg IVPUSH Q2H PRN PRN Reason: Anxiety Morphine Sulfate (Morphine 2 Mg/Ml Syringe) 1 mg IVPUSH Q2H PRN PRN Reason: Pain Sodium Chloride (Sodium Chloride 0.9% 10 Ml Syringe) 10 ml FLUSH ASDIRECTED PRN PRN Reason: Keep Vein Open Last Admin: 12/25/20 12:25 Dose: 10 ml Documented by: WILBUR Sodium Chloride (Sodium Chloride 0.9% 2.5 Ml Syringe) 2.5 ml FLUSH ASDIRECTED PRN PRN Reason: Keep Vein Open Last Admin: 12/25/20 12:25 Dose: 2.5 ml Documented by: WILBUR Vancomycin HCl (Pharmacy To Dose - Vancomycin) 1 dose .XX ASDIRECTED [facility] Labs: Laboratory Tests 12/25/20 12/25/20 12/25/20 Range/Units 12:20 12:20 12:20 WBC 16.31 H (4.0-11.0) K/uL RBC 5.51 (4.50-5.90) M/uL Hgb 17.6 H (13.0-17.0) g/dL Hct 49.4 (38.0-50.0) % MCV 89.7 (80.0-98.0) fL MCH 31.9 (27.0-32.0) pg MCHC 35.6 (31.0-37.0) g/dL RDW Std Deviation 47.0 (28.0-62.0) fl RDW Coeff of Alva 14 (11.0-15.0) % Plt Count 117 L (150-400) K/uL MPV 12.30 H (7.40-12.00) fL Neut % (Auto) 94.4 H (48.0-80.0) % Lymph % (Auto) 2.7 L (16.0-40.0) % [place] % (Auto) 2.8 (0.0-15.0) % Eos % (Auto) 0.0 (0.0-7.0) % Baso % (Auto) 0.1 (0.0-1.5) % Neut # (Auto) 15.4 H (1.4-5.7) K/uL Lymph # (Auto) 0.4 L (0.6-2.4) K/uL [place] # (Auto) 0.5 (0.0-0.8) K/uL Eos # (Auto) 0.0 (0.0-0.7) K/uL Baso # (Auto) 0.0 (0.0-0.1) K/uL Nucleated RBC % 0.0 /100WBC Nucleated RBCs # 0 K/uL INR ABG pH (7.35-7.45) ABG pCO2 (35-45) mmHG ABG pO2 (80-105) mmHG ABG HCO3 (22-26) mEq/L ABG Total CO2 (23-27) mmol/L ABG Base Excess (-2.0-3.0) ABG Carboxyhemoglobin (0-15) % Sodium 136 (136-148) mmol/L Potassium 4.2 (3.5-5.1) mmol/L Chloride 97 L (98-107) mmol/L Carbon Dioxide 28.9 (21.0-32.0) mmol/L BUN 68 H (7.0-18.0) mg/dL Creatinine 2.2 H (0.8-1.3) mg/dL Est Cr Clr Drug Dosing 24.91 mL/min Estimated GFR (MDRD) 28.8 ml/min Glucose 117 H (74-106) mg/dL Lactic Acid (0.4-2.0) mmol/L Calcium 9.0 (8.5-10.1) mg/dL Magnesium 3.1 H (1.8-2.4) mg/dL Total Bilirubin 1.5 H (0.2-1.0) mg/dL AST 24 (15-37) IU/L ALT 25 (14-63) IU/L Alkaline Phosphatase 184 H (46-116) U/L Troponin I 0.076 H* (0.000-0.056) ng/mL B-Natriuretic Peptide 354 H (<100) PG/ML Total Protein 6.5 (6.4-8.2) g/dL Albumin 1.6 L (3.4-5.0) g/dL Globulin 4.9 H (2.6-4.0) g/dL Albumin/Globulin Ratio 0.3 L (0.9-1.6) Urine Color Urine Appearance Urine pH (5.0-8.0) Ur Specific [place] (1.001-1.035) Urine Protein (NEGATIVE) mg/dL Urine Glucose (UA) (NEGATIVE) mg/dL Urine Ketones (NEGATIVE) mg/dL Urine Occult Blood (NEGATIVE) Urine Nitrite (NEGATIVE) Urine Bilirubin (NEGATIVE) Urine Urobilinogen (<2.0) EU/dL Ur Leukocyte Esterase (NEGATIVE) Urine RBC (0-2/HPF) Urine WBC (0-5/HPF) Ur Epithelial Cells (NONE-FEW) Urine Bacteria (NEGATIVE) 12/25/20 12/25/20 12/25/20 Range/Units 12:20 12:20 13:45 WBC (4.0-11.0) K/uL RBC (4.50-5.90) M/uL Hgb (13.0-17.0) g/dL Hct (38.0-50.0) % MCV (80.0-98.0) fL MCH (27.0-32.0) pg MCHC (31.0-37.0) g/dL RDW Std Deviation (28.0-62.0) fl RDW Coeff of Alva (11.0-15.0) % Plt Count (150-400) K/uL MPV (7.40-12.00) fL Neut % (Auto) (48.0-80.0) % Lymph % (Auto) (16.0-40.0) % [place] % (Auto) (0.0-15.0) % Eos % (Auto) (0.0-7.0) % Baso % (Auto) (0.0-1.5) % Neut # (Auto) (1.4-5.7) K/uL Lymph # (Auto) (0.6-2.4) K/uL [place] # (Auto) (0.0-0.8) K/uL Eos # (Auto) (0.0-0.7) K/uL Baso # (Auto) (0.0-0.1) K/uL Nucleated RBC % /100WBC Nucleated RBCs # K/uL INR > 13.83 H* ABG pH 7.41 (7.35-7.45) ABG pCO2 45 (35-45) mmHG ABG pO2 < 30 L* (80-105) mmHG ABG HCO3 29 H (22-26) mEq/L ABG Total CO2 26.0 (23-27) mmol/L ABG Base Excess 3.2 H (-2.0-3.0) ABG Carboxyhemoglobin (0-15) % Sodium (136-148) mmol/L Potassium (3.5-5.1) mmol/L Chloride (98-107) mmol/L Carbon Dioxide (21.0-32.0) mmol/L BUN (7.0-18.0) mg/dL Creatinine (0.8-1.3) mg/dL Est Cr Clr Drug Dosing mL/min Estimated GFR (MDRD) ml/min Glucose (74-106) mg/dL Lactic Acid 3.6 H* (0.4-2.0) mmol/L Calcium (8.5-10.1) mg/dL Magnesium (1.8-2.4) mg/dL Total Bilirubin (0.2-1.0) mg/dL AST (15-37) IU/L ALT (14-63) IU/L Alkaline Phosphatase (46-116) U/L Troponin I (0.000-0.056) ng/mL B-Natriuretic Peptide (<100) PG/ML Total Protein (6.4-8.2) g/dL Albumin (3.4-5.0) g/dL Globulin (2.6-4.0) g/dL Albumin/Globulin Ratio (0.9-1.6) Urine Color Urine Appearance Urine pH (5.0-8.0) Ur Specific [place] (1.001-1.035) Urine Protein (NEGATIVE) mg/dL Urine Glucose (UA) (NEGATIVE) mg/dL Urine Ketones (NEGATIVE) mg/dL Urine Occult Blood (NEGATIVE) Urine Nitrite (NEGATIVE) Urine Bilirubin (NEGATIVE) Urine Urobilinogen (<2.0) EU/dL Ur Leukocyte Esterase (NEGATIVE) Urine RBC (0-2/HPF) Urine WBC (0-5/HPF) Ur Epithelial Cells (NONE-FEW) Urine Bacteria (NEGATIVE) 12/25/20 12/25/20 12/25/20 Range/Units 13:45 15:09 15:30 WBC (4.0-11.0) K/uL RBC (4.50-5.90) M/uL Hgb (13.0-17.0) g/dL Hct (38.0-50.0) % MCV (80.0-98.0) fL MCH (27.0-32.0) pg MCHC (31.0-37.0) g/dL RDW Std Deviation (28.0-62.0) fl RDW Coeff of Alva (11.0-15.0) % Plt Count (150-400) K/uL MPV (7.40-12.00) fL Neut % (Auto) (48.0-80.0) % Lymph % (Auto) (16.0-40.0) % [place] % (Auto) (0.0-15.0) % Eos % (Auto) (0.0-7.0) % Baso % (Auto) (0.0-1.5) % Neut # (Auto) (1.4-5.7) K/uL Lymph # (Auto) (0.6-2.4) K/uL [place] # (Auto) (0.0-0.8) K/uL Eos # (Auto) (0.0-0.7) K/uL Baso # (Auto) (0.0-0.1) K/uL Nucleated RBC % /100WBC Nucleated RBCs # K/uL INR ABG pH (7.35-7.45) ABG pCO2 (35-45) mmHG ABG pO2 (80-105) mmHG ABG HCO3 (22-26) mEq/L ABG Total CO2 (23-27) mmol/L ABG Base Excess (-2.0-3.0) ABG Carboxyhemoglobin 1.8 (0-15) % Sodium (136-148) mmol/L Potassium (3.5-5.1) mmol/L Chloride (98-107) mmol/L Carbon Dioxide (21.0-32.0) mmol/L BUN (7.0-18.0) mg/dL Creatinine (0.8-1.3) mg/dL Est Cr Clr Drug Dosing mL/min Estimated GFR (MDRD) ml/min Glucose (74-106) mg/dL Lactic Acid (0.4-2.0) mmol/L Calcium (8.5-10.1) mg/dL Magnesium (1.8-2.4) mg/dL Total Bilirubin (0.2-1.0) mg/dL AST (15-37) IU/L ALT (14-63) IU/L Alkaline Phosphatase (46-116) U/L Troponin I 0.064 H* (0.000-0.056) ng/mL B-Natriuretic Peptide (<100) PG/ML Total Protein (6.4-8.2) g/dL Albumin (3.4-5.0) g/dL Globulin (2.6-4.0) g/dL Albumin/Globulin Ratio (0.9-1.6) Urine Color YELLOW Urine Appearance HAZY Urine pH 5.0 (5.0-8.0) Ur Specific [place] >= 1.030 (1.001-1.035) Urine Protein NEGATIVE (NEGATIVE) mg/dL Urine Glucose (UA) NEGATIVE (NEGATIVE) mg/dL Urine Ketones NEGATIVE (NEGATIVE) mg/dL Urine Occult Blood TRACE-INTACT H (NEGATIVE) Urine Nitrite NEGATIVE (NEGATIVE) Urine Bilirubin SMALL H (NEGATIVE) Urine Urobilinogen 1.0 (<2.0) EU/dL Ur Leukocyte Esterase NEGATIVE (NEGATIVE) Urine RBC 0-2 (0-2/HPF) Urine WBC 0-1 (0-5/HPF) Ur Epithelial Cells RARE (NONE-FEW) Urine Bacteria FEW (NEGATIVE) Meds: Medications Generic Name Dose Route Start Last Admin Trade Name Prem PRN Reason Stop Dose Admin Sodium Chloride 1,000 mls @ 125 mls/hr 12/25/20 12:18 12/25/20 12:24 Normal Saline IV 12/25/20 20:17 125 mls/hr STAT ONE Administration Sodium Chloride 1,000 mls @ 100 mls/hr 12/25/20 14:49 12/25/20 14:53 Normal Saline IV 12/26/20 00:48 100 mls/hr STAT ONE Administration Piperacillin Sod/Tazobactam 50 mls @ 100 mls/hr 12/25/20 17:30 Sod 3.375 gm/ Sodium Chloride IV Q8H [facility] Vancomycin HCl 1 gm/ Sodium 250 mls @ 250 mls/hr 12/26/20 06:00 Chloride IV Q24H [facility]IN Lorazepam 1 mg 12/25/20 17:30 Lorazepam 2 Mg/Ml Sdv IVPUSH Q2H PRN Anxiety Morphine Sulfate 1 mg 12/25/20 17:28 Morphine 2 Mg/Ml Syringe IVPUSH Q2H PRN Pain Sodium Chloride 10 ml 12/25/20 12:18 12/25/20 12:25 Sodium Chloride 0.9% 10 Ml Syringe FLUSH 10 ml ASDIRECTED PRN Administration Keep Vein Open Sodium Chloride 2.5 ml 12/25/20 12:18 12/25/20 12:25 Sodium Chloride 0.9% 2.5 Ml Syringe FLUSH 2.5 ml ASDIRECTED PRN Administration Keep Vein Open Vancomycin HCl 1 dose 12/25/20 17:30 Pharmacy To Dose - Vancomycin .XX ASDIRECTED [facility]IN Discontinued Medications Generic Name Dose Route Start Last Admin Trade Name Prem PRN Reason Stop Dose Admin Albuterol/Ipratropium 3 ml 12/25/20 14:56 12/25/20 15:25 Albuterol/Ipratropium 3.0-0.5 Mg/3 Ml Neb Soln NEB 12/25/20 14:57 3 ml ONETIME ONE Administration Cefepime HCl 2 gm/ Premix 50 mls @ 100 mls/hr 12/25/20 12:45 12/25/20 12:57 IV 12/25/20 13:14 100 mls/hr ONETIME ONE Administration Vancomycin HCl 1 gm/ Sodium 250 mls @ 250 mls/hr 12/25/20 13:00 12/25/20 13:18 Chloride IV 12/25/20 13:59 250 mls/hr ONETIME ONE Administration Phytonadione 10 mg/ Sodium 51 mls @ 100 mls/hr 12/25/20 13:10 12/25/20 13:26 Chloride IV 12/25/20 13:40 100 mls/hr NOW ONE Administration Sodium Chloride 1,000 mls @ 999 mls/hr 12/25/20 13:20 12/25/20 13:23 Normal Saline IV 12/25/20 14:20 999 mls/hr STAT ONE Administration Methylprednisolone Sodium Succinate 125 mg 12/25/20 12:31 12/25/20 12:42 Methylprednisolone Sodium Succinate 125 Mg/2 Ml Sdv IVPUSH 12/25/20 12:32 125 mg ONETIME ONE Administration Metoprolol Tartrate 5 mg 12/25/20 12:29 12/25/20 13:26 Metoprolol Tartrate 5 Mg/5 Ml Sdv IVPUSH 12/25/20 12:30 Not Given ONETIME ONE Vancomycin HCl 1 dose 12/25/20 12:45 12/25/20 13:17 Pharmacy To Dose - Vancomycin .XX 12/25/20 12:46 Not Given ONETIME ONE Departure - Departure Time of Disposition: 17:46 Disposition: Admitted As Inpatient 64 Clinical Impression: Atrial fibrillation with RVR, Pneumonia due to COVID-19 virus, Sepsis associated hypotension, Renal insufficiency, Supratherapeutic INR Respiratory failure Qualifiers: Chronicity: acute Respiratory failure complication: hypoxia Qualified Code(s): J96.01 - Acute respiratory failure with hypoxia - Discharge Information Sepsis Event Note (ED) - Focused Exam Vital Signs: Vital Signs Temp Pulse Resp BP Pulse Ox 12/25/20 15:43 125 H 73/47 L 89 L 12/25/20 15:14 138 H 99/40 L 97 12/25/20 14:59 122 H 82/55 L 92 L 12/25/20 14:44 160 H 94/65 94 L 12/25/20 14:24 134 H 88/51 L 94 L 12/25/20 14:10 147 H 84/59 L 92 L 12/25/20 13:51 156 H 92/42 L 93 L 12/25/20 13:36 94 75/44 L 90 L 12/25/20 13:26 147 H 91 L 12/25/20 13:08 147 H 74/48 L 95 12/25/20 13:06 106 H 71/48 L 93 L 12/25/20 13:00 109 H 75/41 L 95 12/25/20 12:45 138 H 80/42 L 94 L 12/25/20 12:34 121 H 70/45 L 91 L 12/25/20 12:18 94 L 12/25/20 12:10 97 F 146 H 28 H 105/50 L 78 L - My Orders Last 24 Hours: My Active Orders 12/25/20 12:18 Sodium Chloride 0.9% [Normal Saline] 1,000 ml IV STAT Sodium Chloride 0.9% [Saline Flush] 10 ml FLUSH ASDIRECTED PRN Sodium Chloride 0.9% [Saline Flush] 2.5 ml FLUSH ASDIRECTED PRN Blood Culture x2 Reflex Set [OM.PC] Stat Saline Lock Insert [OM.PC] Stat 12/25/20 12:19 Cardiac Monitoring [RC] . DIRECTED Oxygen Therapy, ED [RC] ASDIRECTED 12/25/20 12:20 CULTURE BLOOD [BC] Stat 12/25/20 12:42 CULTURE BLOOD [BC] Stat 12/25/20 13:12 BIPAP Adult [RT BiPAP/CPAP] [RC] ASDIRECTED 12/25/20 14:49 Sodium Chloride 0.9% [Normal Saline] 1,000 ml IV STAT 12/25/20 14:56 RT Aerosol Therapy [RC] ASDIRECTED 12/25/20 15:16 Urinary Catheter Assessment [RC] ASDIRECTED 12/25/20 15:30 Nguyen Catheter Insertion [Insert Urinary Catheter] [OM.PC] Q24H - Assessment/Plan Last 24 Hours: My Active Orders 12/25/20 12:18 Sodium Chloride 0.9% [Normal Saline] 1,000 ml IV STAT Sodium Chloride 0.9% [Saline Flush] 10 ml FLUSH ASDIRECTED PRN Sodium Chloride 0.9% [Saline Flush] 2.5 ml FLUSH ASDIRECTED PRN Blood Culture x2 Reflex Set [OM.PC] Stat Saline Lock Insert [OM.PC] Stat 12/25/20 12:19 Cardiac Monitoring [RC] . DIRECTED Oxygen Therapy, ED [RC] ASDIRECTED 12/25/20 12:20 CULTURE BLOOD [BC] Stat 12/25/20 12:42 CULTURE BLOOD [BC] Stat 12/25/20 13:12 BIPAP Adult [RT BiPAP/CPAP] [RC] ASDIRECTED 12/25/20 14:49 Sodium Chloride 0.9% [Normal Saline] 1,000 ml IV STAT 12/25/20 14:56 RT Aerosol Therapy [RC] ASDIRECTED 12/25/20 15:16 Urinary Catheter Assessment [RC] ASDIRECTED 12/25/20 15:30 Nguyen Catheter Insertion [Insert Urinary Catheter] [OM.PC] [id number]
[2020-12-25] MEDS ORDERED: Metoprolol Tartrate 5 MG/5 ML SDV IVPUSH ONE (12:29)
[2020-12-25] MEDS ORDERED: methylPREDNISolone Sodium Succinate 125 MG/2 ML SDV IVPUSH ONE (12:31)
[2020-12-25] MEDS ORDERED: Cefepime 2 GM in Premix Bag 1 BAG IV ONE (12:45)
[2020-12-25 12:58] LABS: CARBON DIOXIDE,CO2 28.9 mmol/L (21.0-32.0); POTASSIUM,K 4.2 mmol/L (3.5-5.1)
[2020-12-25] MEDS ORDERED: Phytonadione 10 MG in Sodium Chloride 0.9% 50 ML IV ONE (13:10)
--- NOTE | 2020-12-25 13:18 | CR ---
INDICATION: SOB. TECHNIQUE: Upright portable AP image of the chest. COMPARISON: 12/11/2020. FINDINGS: Left base opacity with lateral left diaphragm obscured, consistent with any combination of atelectasis, pneumonia and loculated pleural fluid. New loculated pleural fluid suggested along the lateral aspect of the lower left chest. New atelectasis or infiltrate in the medial right base. Stable cardiomegaly with AICD and sternal wires. Pulled pulmonary veins difficult to assess. No significant bony abnormality. IMPRESSION: 1. New left base opacity due to any combination of atelectasis, pneumonia and loculated pleural fluid. Some to loculated pleural fluid noted along the lateral left chest. 2. New atelectasis or infiltrate in the medial right base. 3. Stable mild cardiomegaly with AICD and sternal wires. Dictated by Deshaun Coe MD @ 12/25/2020 1:17:30 PM (Electronically Signed)
--- NOTE | 2020-12-25 13:50 | PCM.EKG ---
#1 Interpretation EKG Date: 12/25/20 Time: 13:49 EKG Interpretation Comments: A. fib with RVR with ventricular rate of [address] elevation likely represents rate related ischemia
[2020-12-25] MEDS ORDERED: Albuterol/Ipratropium 3.0-0.5 MG/3 ML Neb Soln NEB ONE (14:56)
--- NOTE | 2020-12-25 15:35 | PCM.SN.2 ---
- Free Text/Narrative Note: I saw and evaluated this patient along with the nurse practitioner. Please see her note for further details. My independent exam shows a cachectic 80-year-old male he has crackles in the bilateral bases prolonged expiratory phase and tachypnea. He is tachycardic and in A. fib with RVR with rates anywhere from 110-160. He is mildly hypotensive with a current blood pressure of 98/48. He has a left lower lobe pneumonia with a parapneumonic effusion as well as likely demand related ischemia with a mildly elevated troponin. I had a long conversation with the patient in the presence of his and his son. The patient does not want intubation or resuscitation. He does not want withdrawal of care at this time and would like to continue IV fluids, IV medications with the exception of vasopressors, and IV antibiotics. He will continue the BiPAP as a general principal for now. However he would like a few minutes off of BiPAP to rest on nasal cannula. We discussed at length that he is critically ill and that he may continue to get worse and from this illness with the treatment plan. He expresses understanding of this as do his family. We also discussed the option of transfer to another higher level facility that could potentially offer a higher chance of survival. However, we also discussed the very real possibility that he may pass away even with maximal medical intervention at another higher level facility. He and his family understand this choice as well and he has a strong desire to remain here with his family. In summary we will continue the IV fluids IV antibiotics and other IV medicines as may be indicated and for now we will continue the BiPAP. We will not escala te care. There will be no intubation, no cardiac resuscitation, and if the patient clinically worsens he will be made comfortable and will be allowed a natural . I will discuss this plan of care with the hospitalist. 1650: Pt discussed in full with Dr. Valle, will admit to obs with tele for now. Will place magnet over ICD to prevent recurrent shock in this patient who is DNR/DNI. Critical Care Note: I needed to stop seeing other patients and immediately help to assess this patient. This patient required recurrent reassessments significant complex decision making and had an ongoing risk of airway compromise. Total duration at the bedside excluding billable procedures was 55 minutes. Time Documentation
[2020-12-25] MEDS ORDERED: Piperacillin/Tazobactam 3.375 GM in Sodium Chloride 0.9% 50 ML IV SCH (17:30)
--- NOTE | 2020-12-25 17:48 | PCM.HP.2 ---
<Kiesha Neri - Last Filed: 12/25/20 17:37> H&P History of Present Illness - General Date of Service: 12/25/20 Admit Problem/Dx: Admission Diagnosis/Problem Admission Diagnosis/Problem Pneumonia - History of Present Illness Initial Comments - Free Text/Narative: The patient is an 80-year-old cachectic male, on day 1 of service, who has a significant past medical history of congestive heart failure, chronic obstructive pulmonary disease, coronary artery disease, AICD, hypertension, and atrial fibrillation on Coumadin, who was admitted to the medical floor due to to sepsis secondary to pneumonia and A. fib with RVR. For the past 7 days the patient has slowly been to deteriorating, he has needed help with his activities of daily living, has been unsteady on his feet, and has had a few falls, most notably a couple days ago off the toilet where he sustained an abrasion on his right torres but did not lose consciousness or hit his head. On December 11, he was hospitalized due to respiratory failure secondary to COVID-19 pneumonia and was discharged on December 13 and sent home with oxygen supplementation. Since his discharge, he has had increased shortness of breath, fatigue, and confusion. In regards to his social history, he is a 50-year smoker of 1/2 pack to full p ack of cigarettes and still has the occasional 1 to 2 cigarettes daily. He also drinks alcohol daily but denies recreational drug use. Upon further interview, he denies chest pain, palpitations, nausea, vomiting, abdominal pain, and any issues with urination and/or defecation. On chest x-ray, left base opacity is seen most likely a combination of atelectasis, pneumonia, and loculated pleural fluid. Mild cardiomegaly is also seen with AICD and sternal wires. On CBC, his white blood cell count is 16.31, hemoglobin 17.6, hematocrit is 49.4, and platelet count is 117. His INR is 13.83. On CMP, his sodium is 136, potassium is 4.2, chloride is 97, carbon dioxide is 20.9, BUN is 68, creatinine is 2.2. On EKG, Afib with RVR His troponin is 0.076, lactic acid is 3.6, and BNP is 354. In the emergency department he had a 500 mL normal saline bolus with concurrent 125 mL/h, he had Solu-Medrol, vitamin K 10 IV, as well as vancomycin and cefepime as a one-time dose. - Related Data Allergies/Adverse Reactions: Allergies Allergy/AdvReac Type Severity Reaction Status Date / Time No Known Allergies Allergy Verified 12/26/20 03:12 Home Medications: Home Meds Aspirin [Ecotrin] 81 mg PO DAILY 11/15/14 [History] Citalopram [Celexa] 20 mg PO DAILY 11/15/14 [History] Losartan [Cozaar] 50 mg PO BEDTIME 11/15/14 [History] Simvastatin 40 mg PO BEDTIME 11/15/14 [History] Terazosin [Hytrin] 2 mg PO BEDTIME 11/15/14 [History] Metoprolol Tartrate [Lopressor] 100 mg PO BID 11/17/14 [History] Multivit-Min/FA/Lycopen/Lutein [Centrum Silver Tablet] 1 tab PO DAILY 11/17/14 [History] Spironolactone [Aldactone] 25 mg PO DAILY 02/19/17 [History] Albuterol Sulfate [Proair Respiclick] 90 mcg IH Q4H PRN 12/11/20 [History] Furosemide 20 mg PO DAILY 12/11/20 [History] Warfarin Sodium [Jantoven] 2 mg PO SUTUWEFRSA 12/11/20 [History] Warfarin Sodium [Jantoven] 3 mg PO MOTH 12/11/20 [History] Dextromethorphan/guaiFENesin [Robitussin DM] 10 ml PO Q4H PRN #1 bottle 12/13/20 [Rx] dexAMETHasone [Dexamethasone] 6 mg PO DAILY #5 tablet 12/13/20 [Rx] Past Medical History HEENT History: Reports: Impaired Vision, Macular Degeneration Cardiovascular History: Reports: Afib, Automatic Implantable Cardioverter Defibrillators, Bypass, Heart Failure, High Cholesterol, Hypertension, Pacemaker, SOB on Exertion Respiratory History: Reports: COPD, SOB, Other (See Below) Other Respiratory History: History of Pneumonia 10/2014,. per pt he used to use oxygen as needed at home but not anymore. Gastrointestinal History: Reports: GERD Genitourinary History: Reports: None Musculoskeletal History: Reports: Fracture Other Musculoskeletal History: pelvis fracture Neurological History: Reports: None Psychiatric History: Reports: None Endocrine/Metabolic History: Reports: None Hematologic History: Reports: None Immunologic History: Reports: None Oncologic (Cancer) History: Reports: None Dermatologic History: Reports: None - Infectious Disease History Infectious Disease History: Reports: C-Difficile, Chicken Pox, Influenza, Measles, Mumps - Past Surgical History HEENT Surgical History: Reports: Adenoidectomy, Eye Surgery, Oral Surgery, Tonsillectomy Other HEENT Surgeries/Procedures: wears glasses, upper and lower dentures Cardiovascular Surgical History: Reports: Pacer, Other (See Below) Other Cardiovascular Surgeries/Procedures: 5 bypass surgery. AICD surgery (4 times - revisions) Social & Family History - Family History Family Medical History: No Pertinent Family History - Tobacco Use Tobacco Use Status *Q: Former Tobacco User Used Tobacco, but Quit: Yes Month/Year Tobacco Last Used: 12/09/2020 - Caffeine Use Caffeine Use: Reports: Coffee - Recreational Drug Use Recreational Drug Use: No H&P Review of Systems - Review of Systems: Review Of Systems: See Below General: Reports: Chills, Weakness, Fatigue. Denies: Fever, Diaphoresis HEENT: Denies: Headaches, Sore Throat Pulmonary: Reports: Shortness of Breath, Wheezing, Cough Cardiovascular: Denies: Chest Pain, Palpitations Gastrointestinal: Denies: Abdominal Pain Genitourinary: Denies: Dysuria Neurological: Reports: Confusion. Denies: Dizziness Exam - Exam Exam: See Below - Vital Signs Vital Signs: Last Vital Signs Temp 97 F 12/25/20 12:10 Pulse 125 H 12/25/20 15:43 Resp 28 H 12/25/20 12:10 BP 73/47 L 12/25/20 15:43 Pulse Ox 89 L 12/25/20 15:43 Weight: 68.039 kg - Exam General: Lethargic HEENT: Other (Dry mucous membranes) Neck: No: Lymphadenopathy Lungs: Wheezing Cardiovascular: Irregular Rhythm, Tachycardia GI/Abdominal Exam: Normal Bowel Sounds, Soft, Non-Tender Back Exam: Other (Seborrheic keratosis seen in the skin of the back) Extremities: No Pedal Edema, Redness Neuro Extensive - Mental Status: Alert, Oriented x3, Normal Mood/Affect - Patient Data Lab Results Last 24 hrs: Laboratory Results - last 24 hr 12/25/20 12/25/20 12/25/20 Range/Units 12:20 12:20 12:20 WBC 16.31 H (4.0-11.0) K/uL RBC 5.51 (4.50-5.90) M/uL Hgb 17.6 H (13.0-17.0) g/dL Hct 49.4 (38.0-50.0) % MCV 89.7 (80.0-98.0) fL MCH 31.9 (27.0-32.0) pg MCHC 35.6 (31.0-37.0) g/dL RDW Std Deviation 47.0 (28.0-62.0) fl RDW Coeff of [place] 14 (11.0-15.0) % Plt Count 117 L (150-400) K/uL MPV 12.30 H (7.40-12.00) fL Neut % (Auto) 94.4 H (48.0-80.0) % Lymph % (Auto) 2.7 L (16.0-40.0) % [place] % (Auto) 2.8 (0.0-15.0) % Eos % (Auto) 0.0 (0.0-7.0) % Baso % (Auto) 0.1 (0.0-1.5) % Neut # (Auto) 15.4 H (1.4-5.7) K/uL Lymph # (Auto) 0.4 L (0.6-2.4) K/uL [place] # (Auto) 0.5 (0.0-0.8) K/uL Eos # (Auto) 0.0 (0.0-0.7) K/uL Baso # (Auto) 0.0 (0.0-0.1) K/uL Nucleated RBC % 0.0 /100WBC Nucleated RBCs # 0 K/uL INR ABG pH (7.35-7.45) ABG pCO2 (35-45) mmHG ABG pO2 (80-105) mmHG ABG HCO3 (22-26) mEq/L ABG Total CO2 (23-27) mmol/L ABG Base Excess (-2.0-3.0) ABG Carboxyhemoglobin (0-15) % Sodium 136 (136-148) mmol/L Potassium 4.2 (3.5-5.1) mmol/L Chloride 97 L (98-107) mmol/L Carbon Dioxide 28.9 (21.0-32.0) mmol/L BUN 68 H (7.0-18.0) mg/dL Creatinine 2.2 H (0.8-1.3) mg/dL Est Cr Clr Drug Dosing 24.91 mL/min Estimated GFR (MDRD) 28.8 ml/min Glucose 117 H (74-106) mg/dL Lactic Acid (0.4-2.0) mmol/L Calcium 9.0 (8.5-10.1) mg/dL Magnesium 3.1 H (1.8-2.4) mg/dL Total Bilirubin 1.5 H (0.2-1.0) mg/dL AST 24 (15-37) IU/L ALT 25 (14-63) IU/L Alkaline Phosphatase 184 H (46-116) U/L Troponin I 0.076 H* (0.000-0.056) ng/mL B-Natriuretic Peptide 354 H (<100) PG/ML Total Protein 6.5 (6.4-8.2) g/dL Albumin 1.6 L (3.4-5.0) g/dL Globulin 4.9 H (2.6-4.0) g/dL Albumin/Globulin Ratio 0.3 L (0.9-1.6) Urine Color Urine Appearance Urine pH (5.0-8.0) Ur Specific [place] (1.001-1.035) Urine Protein (NEGATIVE) mg/dL Urine Glucose (UA) (NEGATIVE) mg/dL Urine Ketones (NEGATIVE) mg/dL Urine Occult Blood (NEGATIVE) Urine Nitrite (NEGATIVE) Urine Bilirubin (NEGATIVE) Urine Urobilinogen (<2.0) EU/dL Ur Leukocyte Esterase (NEGATIVE) Urine RBC (0-2/HPF) Urine WBC (0-5/HPF) Ur Epithelial Cells (NONE-FEW) Urine Bacteria (NEGATIVE) 12/25/20 12/25/20 12/25/20 Range/Units 12:20 12:20 13:45 WBC (4.0-11.0) K/uL RBC (4.50-5.90) M/uL Hgb (13.0-17.0) g/dL Hct (38.0-50.0) % MCV (80.0-98.0) fL MCH (27.0-32.0) pg MCHC (31.0-37.0) g/dL RDW Std Deviation (28.0-62.0) fl RDW Coeff of [place] (11.0-15.0) % Plt Count (150-400) K/uL MPV (7.40-12.00) fL Neut % (Auto) (48.0-80.0) % Lymph % (Auto) (16.0-40.0) % [place] % (Auto) (0.0-15.0) % Eos % (Auto) (0.0-7.0) % Baso % (Auto) (0.0-1.5) % Neut # (Auto) (1.4-5.7) K/uL Lymph # (Auto) (0.6-2.4) K/uL [place] # (Auto) (0.0-0.8) K/uL Eos # (Auto) (0.0-0.7) K/uL Baso # (Auto) (0.0-0.1) K/uL Nucleated RBC % /100WBC Nucleated RBCs # K/uL INR > 13.83 H* ABG pH 7.41 (7.35-7.45) ABG pCO2 45 (35-45) mmHG ABG pO2 < 30 L* (80-105) mmHG ABG HCO3 29 H (22-26) mEq/L ABG Total CO2 26.0 (23-27) mmol/L ABG Base Excess 3.2 H (-2.0-3.0) ABG Carboxyhemoglobin (0-15) % Sodium (136-148) mmol/L Potassium (3.5-5.1) mmol/L Chloride (98-107) mmol/L Carbon Dioxide (21.0-32.0) mmol/L BUN (7.0-18.0) mg/dL Creatinine (0.8-1.3) mg/dL Est Cr Clr Drug Dosing mL/min Estimated GFR (MDRD) ml/min Glucose (74-106) mg/dL Lactic Acid 3.6 H* (0.4-2.0) mmol/L Calcium (8.5-10.1) mg/dL Magnesium (1.8-2.4) mg/dL Total Bilirubin (0.2-1.0) mg/dL AST (15-37) IU/L ALT (14-63) IU/L Alkaline Phosphatase (46-116) U/L Troponin I (0.000-0.056) ng/mL B-Natriuretic Peptide (<100) PG/ML Total Protein (6.4-8.2) g/dL Albumin (3.4-5.0) g/dL Globulin (2.6-4.0) g/dL Albumin/Globulin Ratio (0.9-1.6) Urine Color Urine Appearance Urine pH (5.0-8.0) Ur Specific [place] (1.001-1.035) Urine Protein (NEGATIVE) mg/dL Urine Glucose (UA) (NEGATIVE) mg/dL Urine Ketones (NEGATIVE) mg/dL Urine Occult Blood (NEGATIVE) Urine Nitrite (NEGATIVE) Urine Bilirubin (NEGATIVE) Urine Urobilinogen (<2.0) EU/dL Ur Leukocyte Esterase (NEGATIVE) Urine RBC (0-2/HPF) Urine WBC (0-5/HPF) Ur Epithelial Cells (NONE-FEW) Urine Bacteria (NEGATIVE) 12/25/20 12/25/20 12/25/20 Range/Units 13:45 15:09 15:30 WBC (4.0-11.0) K/uL RBC (4.50-5.90) M/uL Hgb (13.0-17.0) g/dL Hct (38.0-50.0) % MCV (80.0-98.0) fL MCH (27.0-32.0) pg MCHC (31.0-37.0) g/dL RDW Std Deviation (28.0-62.0) fl RDW Coeff of [place] (11.0-15.0) % Plt Count (150-400) K/uL MPV (7.40-12.00) fL Neut % (Auto) (48.0-80.0) % Lymph % (Auto) (16.0-40.0) % [place] % (Auto) (0.0-15.0) % Eos % (Auto) (0.0-7.0) % Baso % (Auto) (0.0-1.5) % Neut # (Auto) (1.4-5.7) K/uL Lymph # (Auto) (0.6-2.4) K/uL [place] # (Auto) (0.0-0.8) K/uL Eos # (Auto) (0.0-0.7) K/uL Baso # (Auto) (0.0-0.1) K/uL Nucleated RBC % /100WBC Nucleated RBCs # K/uL INR ABG pH (7.35-7.45) ABG pCO2 (35-45) mmHG ABG pO2 (80-105) mmHG ABG HCO3 (22-26) mEq/L ABG Total CO2 (23-27) mmol/L ABG Base Excess (-2.0-3.0) ABG Carboxyhemoglobin 1.8 (0-15) % Sodium (136-148) mmol/L Potassium (3.5-5.1) mmol/L Chloride (98-107) mmol/L Carbon Dioxide (21.0-32.0) mmol/L BUN (7.0-18.0) mg/dL Creatinine (0.8-1.3) mg/dL Est Cr Clr Drug Dosing mL/min Estimated GFR (MDRD) ml/min Glucose (74-106) mg/dL Lactic Acid (0.4-2.0) mmol/L Calcium (8.5-10.1) mg/dL Magnesium (1.8-2.4) mg/dL Total Bilirubin (0.2-1.0) mg/dL AST (15-37) IU/L ALT (14-63) IU/L Alkaline Phosphatase (46-116) U/L Troponin I 0.064 H* (0.000-0.056) ng/mL B-Natriuretic Peptide (<100) PG/ML Total Protein (6.4-8.2) g/dL Albumin (3.4-5.0) g/dL Globulin (2.6-4.0) g/dL Albumin/Globulin Ratio (0.9-1.6) Urine Color YELLOW Urine Appearance HAZY Urine pH 5.0 (5.0-8.0) Ur Specific [place] >= 1.030 (1.001-1.035) Urine Protein NEGATIVE (NEGATIVE) mg/dL Urine Glucose (UA) NEGATIVE (NEGATIVE) mg/dL Urine Ketones NEGATIVE (NEGATIVE) mg/dL Urine Occult Blood TRACE-INTACT H (NEGATIVE) Urine Nitrite NEGATIVE (NEGATIVE) Urine Bilirubin SMALL H (NEGATIVE) Urine Urobilinogen 1.0 (<2.0) EU/dL Ur Leukocyte Esterase NEGATIVE (NEGATIVE) Urine RBC 0-2 (0-2/HPF) Urine WBC 0-1 (0-5/HPF) Ur Epithelial Cells RARE (NONE-FEW) Urine Bacteria FEW (NEGATIVE) Result Diagrams: 12/25/20 12:20 12/25/20 12:20 Sepsis Event Note - Evaluation Sepsis Screening Result: Possible Sepsis Risk - Focused Exam Vital Signs: Vital Signs Temp Pulse Resp BP Pulse Ox 12/25/20 15:43 125 H 73/47 L 89 L 12/25/20 15:14 138 H 99/40 L 97 12/25/20 14:59 122 H 82/55 L 92 L 12/25/20 14:44 160 H 94/65 94 L 12/25/20 14:24 134 H 88/51 L 94 L 12/25/20 14:10 147 H 84/59 L 92 L 12/25/20 13:51 156 H 92/42 L 93 L 12/25/20 13:36 94 75/44 L 90 L 12/25/20 13:26 147 H 91 L 12/25/20 13:08 147 H 74/48 L 95 12/25/20 13:06 106 H 71/48 L 93 L 12/25/20 13:00 109 H 75/41 L 95 12/25/20 12:45 138 H 80/42 L 94 L 12/25/20 12:34 121 H 70/45 L 91 L 12/25/20 12:18 94 L 12/25/20 12:10 97 F 146 H 28 H 105/50 L 78 L - Problem List (1) Pneumonia SNOMED Code(s): 697153518 ICD Code: J18.9 - PNEUMONIA, UNSPECIFIED ORGANISM Status: Acute Priority: High Current Visit: No Qualifiers: Pneumonia type: due to unspecified organism Laterality: right Lung location: lower lobe of lung (2) Atrial fibrillation with RVR SNOMED Code(s): 526234605802632 ICD Code: I48.91 - UNSPECIFIED ATRIAL FIBRILLATION Status: Acute Current Visit: Yes (3) Sepsis associated hypotension SNOMED Code(s): 44827551 ICD Code: A41.9 - SEPSIS, UNSPECIFIED ORGANISM; I95.9 - HYPOTENSION, UNSPECIFIED Status: Acute Current Visit: Yes (4) Renal insufficiency SNOMED Code(s): 813217565, 752147339 ICD Code: N28.9 - DISORDER OF KIDNEY AND URETER, UNSPECIFIED Status: Acute Current Visit: Yes Problem List Initiated/Reviewed/Updated: Yes Orders Last 24hrs: Active Orders 24 hr Category Date Time Status Patient Status [ADT] Routine ADT 12/25/20 16:27 Active BIPAP Adult [RT BiPAP/CPAP] [RC] ASDIRECTED Care 12/25/20 13:12 Active Cardiac Monitoring [RC] . DIRECTED Care 12/25/20 12:19 Active Nguyen Catheter Insertion [Insert Urinary Catheter] [OM. Care 12/25/20 15:30 Ordered PC] Q24H Oxygen Therapy, ED [RC] ASDIRECTED Care 12/25/20 12:19 Active RT Aerosol Therapy [RC] ASDIRECTED Care 12/25/20 14:56 Active Urinary Catheter Assessment [RC] ASDIRECTED Care 12/25/20 15:16 Active Consult to Hospice [CONS] Routine Cons 12/25/20 17:32 Ordered Regular Diet [DIET] Diet 12/25/20 Dinner Ordered CULTURE BLOOD [BC] Stat Lab 12/25/20 12:20 Received CULTURE BLOOD [BC] Stat Lab 12/25/20 12:42 Received LACTIC ACID [CHEM] Routine Lab 12/25/20 17:05 Ordered LORazepam [Ativan] Med 12/25/20 17:30 Ordered 1 mg IVPUSH Q2H PRN Morphine Med 12/25/20 17:28 Ordered 1 mg IVPUSH Q2H PRN Pharmacy to Dose - Vancomycin Med 12/25/20 17:30 Ordered 1 dose .XX ASDIRECTED Piperacillin/Tazobactam [Piperacil-Tazobact] 3.375 gm Med 12/25/20 17:30 Active Sodium Chloride 0.9% [Normal Saline AdvBag] 50 ml IV Q8H Sodium Chloride 0.9% [Normal Saline] 1,000 ml Med 12/25/20 12:18 Active IV STAT Sodium Chloride 0.9% [Normal Saline] 1,000 ml Med 12/25/20 14:49 Active IV STAT Sodium Chloride 0.9% [Saline Flush] Med 12/25/20 12:18 Active 10 ml FLUSH ASDIRECTED PRN Sodium Chloride 0.9% [Saline Flush] Med 12/25/20 12:18 Active 2.5 ml FLUSH ASDIRECTED PRN Vancomycin 1 gm Med 12/26/20 06:00 Active Sodium Chloride 0.9% [Normal Saline AdvBag] 250 ml IV Q24H Blood Culture x2 Reflex Set [OM.PC] Stat Oth 12/25/20 12:18 Ordered Saline Lock Insert [OM.PC] Stat Oth 12/25/20 12:18 Ordered Code Status [Resuscitation Status] Stat Resus Stat 12/25/20 16:54 Ordered Medication Orders Sodium Chloride (Normal Saline) 1,000 mls @ 125 mls/hr IV STAT ONE Stop: 12/25/20 20:17 Last Admin: 12/25/20 12:24 Dose: 125 mls/hr Documented by: WILBUR Sodium Chloride (Normal Saline) 1,000 mls @ 100 mls/hr IV STAT ONE Stop: 12/26/20 00:48 Last Admin: 12/25/20 14:53 Dose: 100 mls/hr Documented by: WILBUR Piperacillin Sod/Tazobactam (Sod 3.375 gm/ Sodium Chloride) 50 mls @ 100 mls/hr IV Q8H STALIN Vancomycin HCl 1 gm/ Sodium (Chloride) 250 mls @ 250 mls/hr IV Q24H STALIN Lorazepam (Lorazepam 2 Mg/Ml Sdv) 1 mg IVPUSH Q2H PRN PRN Reason: Anxiety Morphine Sulfate (Morphine 2 Mg/Ml Syringe) 1 mg IVPUSH Q2H PRN PRN Reason: Pain Sodium Chloride (Sodium Chloride 0.9% 10 Ml Syringe) 10 ml FLUSH ASDIRECTED PRN PRN Reason: Keep Vein Open Last Admin: 12/25/20 12:25 Dose: 10 ml Documented by: WILBUR Sodium Chloride (Sodium Chloride 0.9% 2.5 Ml Syringe) 2.5 ml FLUSH ASDIRECTED PRN PRN Reason: Keep Vein Open Last Admin: 12/25/20 12:25 Dose: 2.5 ml Documented by: WILBUR Vancomycin HCl (Pharmacy To Dose - Vancomycin) 1 dose .XX ASDIRECTED STALIN Assessment/Plan Comment:: Admit the patient to the medical floor, vitals per unit routine, activity up ad sasha., regular diet, DNI/DNR comfort care measures in place 1. Sepsis secondary to pneumonia -The patient was given vancomycin and cefepime while in the emergency department, we will continue with vancomycin every 12 hours to be dosed by the pharmacy and Zosyn every 8 hours -The patient and family have decided to be placed on comfort care measures, morphine 1 mg every 2 hours for pain and Ativan 1 mg every 2 hours for anxiety is on board -Hospice consult is in place and discussions will be made tomorrow in regards to the patient moving forward -Blood cultures have been ordered and are pending 2. A. fib with RVR -The patient is EKG showed A. fib with RVR but metoprolol could not be given because the patient is currently hypotensive 3. SANGEETA -Because the patient is on comfort care measures and hospice, we will not be ordering labs such as CMP to monitor him <Mee Valle - Last Filed: 12/26/20 15:18> H&P History of Present Illness - General Admit Problem/Dx: Admission Diagnosis/Problem Admission Diagnosis/Problem Pneumonia Exam - Vital Signs Vital Signs: Last Vital Signs Temp 35.8 C L 12/26/20 08:51 Pulse 132 H 12/26/20 08:51 Resp 32 H 12/26/20 08:51 BP 103/83 12/26/20 08:51 Pulse Ox 90 L 12/26/20 08:51 - Patient Data Lab Results Last 24 hrs: Laboratory Results - last 24 hr 12/25/20 12/25/20 12/25/20 Range/Units 15:09 15:30 17:36 Lactic Acid 3.0 H* (0.4-2.0) mmol/L Troponin I 0.064 H* (0.000-0.056) ng/mL Urine Color YELLOW Urine Appearance HAZY Urine pH 5.0 (5.0-8.0) Ur Specific [place] >= 1.030 (1.001-1.035) Urine Protein NEGATIVE (NEGATIVE) mg/dL Urine Glucose (UA) NEGATIVE (NEGATIVE) mg/dL Urine Ketones NEGATIVE (NEGATIVE) mg/dL Urine Occult Blood TRACE-INTACT H (NEGATIVE) Urine Nitrite NEGATIVE (NEGATIVE) Urine Bilirubin SMALL H (NEGATIVE) Urine Urobilinogen 1.0 (<2.0) EU/dL Ur Leukocyte Esterase NEGATIVE (NEGATIVE) Urine RBC 0-2 (0-2/HPF) Urine WBC 0-1 (0-5/HPF) Ur Epithelial Cells RARE (NONE-FEW) Urine Bacteria FEW (NEGATIVE) Result Diagrams: 12/25/20 12:20 12/25/20 12:20 Mahad Results Last 24 hrs: Microbiology 12/25/20 12:42 Aerobic Blood Culture - Final Blood - Venous - Lab Draw Anaerobic Blood Culture - Final 12/25/20 12:20 Aerobic Blood Culture - Final Blood - Venous Anaerobic Blood Culture - Final Sepsis Event Note - Focused Exam Vital Signs: Vital Signs Temp Pulse Resp BP Pulse Ox 12/26/20 08:51 35.8 C L 132 H 32 H 103/83 90 L - Problem List (1) Palliative care status SNOMED Code(s): 706941660 ICD Code: Z51.5 - ENCOUNTER FOR PALLIATIVE CARE Status: Acute Current Visit: Yes Orders Last 24hrs: Active Orders 24 hr Category Date Time Status Patient Status [ADT] Routine ADT 12/25/20 16:27 Active Nguyen Catheter Insertion [Insert Urinary Catheter] [OM. Care 12/25/20 15:30 Ordered PC] Q24H RT Aerosol Therapy [RC] ASDIRECTED Care 12/25/20 14:56 Active Telemetry Monitoring [Cardiac Monitoring] [RC] Q8H Care 12/25/20 21:29 Active Urinary Catheter Assessment [RC] ASDIRECTED Care 12/25/20 15:16 Active Consult to Hospice [CONS] Routine Cons 12/25/20 17:32 Active Regular Diet [DIET] Diet 12/25/20 Dinner Active LORazepam [Ativan] Med 12/25/20 17:30 Active 1 mg IVPUSH Q2H PRN Morphine Med 12/25/20 17:28 Active 1 mg IVPUSH Q2H PRN Code Status [Resuscitation Status] Stat Resus Stat 12/25/20 16:54 Ordered Medication Orders Lorazepam (Lorazepam 2 Mg/Ml Sdv) 1 mg IVPUSH Q2H PRN PRN Reason: Anxiety Last Admin: 12/26/20 10:57 Dose: 1 mg Documented by: Admin: 12/26/20 04:36 Dose: 1 mg Documented by: Admin: 12/25/20 23:11 Dose: 1 mg Documented by: MARISELA Morphine Sulfate (Morphine 2 Mg/Ml Syringe) 1 mg IVPUSH Q2H PRN PRN Reason: Pain Last Admin: 12/26/20 09:53 Dose: 1 mg Documented by: SRIKANTH Sodium Chloride (Sodium Chloride 0.9% 10 Ml Syringe) 10 ml FLUSH ASDIRECTED PRN PRN Reason: Keep Vein Open Last Admin: 12/25/20 12:25 Dose: 10 ml Documented by: WILBUR Sodium Chloride (Sodium Chloride 0.9% 2.5 Ml Syringe) 2.5 ml FLUSH ASDIRECTED PRN PRN Reason: Keep Vein Open Last Admin: 12/25/20 12:25 Dose: 2.5 ml Documented by: WILBUR
[2020-12-25] MEDS ORDERED: Sodium Chloride 0.9% 500 ML IV ONE (19:15)
[2020-12-25] MEDS: Piperacillin/Tazobactam 3.375 GM in Sodium Chloride 0.9% 50 ML IV SCH (21:48)
[2020-12-25] MEDS: LORazepam 2 MG/ML SDV IVPUSH PRN (23:11)
[2020-12-26] MEDS: Piperacillin/Tazobactam 3.375 GM in Sodium Chloride 0.9% 50 ML IV SCH ×2 (04:21→14:14)
[2020-12-26] MEDS: LORazepam 2 MG/ML SDV IVPUSH PRN ×3 (04:36→20:25)
[2020-12-26] MEDS: Morphine 2 MG/ML SYRINGE IVPUSH PRN ×2 (09:53→23:13)
--- NOTE | 2020-12-26 12:15 | PCM.PN ---
<Kiesha Neri - Last Filed: 12/26/20 12:09> - General Info Date of Service: 12/26/20 Subjective Update: The patient is an 80-year-old cachectic male, on day 2 of service, who has a significant past medical history of congestive heart failure, chronic obstructive pulmonary disease, coronary artery disease, AICD, hypertension, and atrial fibrillation on Coumadin, who was admitted to the medical floor due to pneumonia and A. fib with RVR. The patient's family wanted him to be resumed on antibiotics but have placed him DNI/DNR. He is currently on comfort care measures and hospice was consulted. In my communication with hospice, today they will meet with the patient's and family to discuss measures of care moving forward. I will also discuss with the family the need to discontinue antibiotics if the patient continues with hospice and comfort care. - Review of Systems General: Reports: Fatigue Pulmonary: Denies: Shortness of Breath, Cough Cardiovascular: Denies: Chest Pain Gastrointestinal: Denies: Abdominal Pain Genitourinary: Denies: Dysuria - Patient Data Vitals - Most Recent: Last Vital Signs Temp 96.4 F L 12/26/20 08:51 Pulse 132 H 12/26/20 08:51 Resp 32 H 12/26/20 08:51 BP 103/83 12/26/20 08:51 Pulse Ox 90 L 12/26/20 08:51 Weight - Most Recent: 68.039 kg I&O - Last 24 Hours: Intake & Output 12/25/20 12/26/20 12/26/20 22:59 06:59 14:59 Intake Total 100 Output Total 500 Balance -400 Lab Results Last 24 Hours: Laboratory Results - last 24 hr 12/25/20 12/25/20 12/25/20 Range/Units 12:20 12:20 12:20 WBC 16.31 H (4.0-11.0) K/uL RBC 5.51 (4.50-5.90) M/uL Hgb 17.6 H (13.0-17.0) g/dL Hct 49.4 (38.0-50.0) % MCV 89.7 (80.0-98.0) fL MCH 31.9 (27.0-32.0) pg MCHC 35.6 (31.0-37.0) g/dL RDW Std Deviation 47.0 (28.0-62.0) fl RDW Coeff of Alva 14 (11.0-15.0) % Plt Count 117 L (150-400) K/uL MPV 12.30 H (7.40-12.00) fL Neut % (Auto) 94.4 H (48.0-80.0) % Lymph % (Auto) 2.7 L (16.0-40.0) % Leon % (Auto) 2.8 (0.0-15.0) % Eos % (Auto) 0.0 (0.0-7.0) % Baso % (Auto) 0.1 (0.0-1.5) % Neut # (Auto) 15.4 H (1.4-5.7) K/uL Lymph # (Auto) 0.4 L (0.6-2.4) K/uL Leon # (Auto) 0.5 (0.0-0.8) K/uL Eos # (Auto) 0.0 (0.0-0.7) K/uL Baso # (Auto) 0.0 (0.0-0.1) K/uL Nucleated RBC % 0.0 /100WBC Nucleated RBCs # 0 K/uL INR ABG pH (7.35-7.45) ABG pCO2 (35-45) mmHG ABG pO2 (80-105) mmHG ABG HCO3 (22-26) mEq/L ABG Total CO2 (23-27) mmol/L ABG Base Excess (-2.0-3.0) ABG Carboxyhemoglobin (0-15) % Sodium 136 (136-148) mmol/L Potassium 4.2 (3.5-5.1) mmol/L Chloride 97 L (98-107) mmol/L Carbon Dioxide 28.9 (21.0-32.0) mmol/L BUN 68 H (7.0-18.0) mg/dL Creatinine 2.2 H (0.8-1.3) mg/dL Est Cr Clr Drug Dosing 24.91 mL/min Estimated GFR (MDRD) 28.8 ml/min Glucose 117 H (74-106) mg/dL Lactic Acid (0.4-2.0) mmol/L Calcium 9.0 (8.5-10.1) mg/dL Magnesium 3.1 H (1.8-2.4) mg/dL Total Bilirubin 1.5 H (0.2-1.0) mg/dL AST 24 (15-37) IU/L ALT 25 (14-63) IU/L Alkaline Phosphatase 184 H (46-116) U/L Troponin I 0.076 H* (0.000-0.056) ng/mL B-Natriuretic Peptide 354 H (<100) PG/ML Total Protein 6.5 (6.4-8.2) g/dL Albumin 1.6 L (3.4-5.0) g/dL Globulin 4.9 H (2.6-4.0) g/dL Albumin/Globulin Ratio 0.3 L (0.9-1.6) Urine Color Urine Appearance Urine pH (5.0-8.0) Ur Specific Baxter (1.001-1.035) Urine Protein (NEGATIVE) mg/dL Urine Glucose (UA) (NEGATIVE) mg/dL Urine Ketones (NEGATIVE) mg/dL Urine Occult Blood (NEGATIVE) Urine Nitrite (NEGATIVE) Urine Bilirubin (NEGATIVE) Urine Urobilinogen (<2.0) EU/dL Ur Leukocyte Esterase (NEGATIVE) Urine RBC (0-2/HPF) Urine WBC (0-5/HPF) Ur Epithelial Cells (NONE-FEW) Urine Bacteria (NEGATIVE) 12/25/20 12/25/20 12/25/20 Range/Units 12:20 12:20 13:45 WBC (4.0-11.0) K/uL RBC (4.50-5.90) M/uL Hgb (13.0-17.0) g/dL Hct (38.0-50.0) % MCV (80.0-98.0) fL MCH (27.0-32.0) pg MCHC (31.0-37.0) g/dL RDW Std Deviation (28.0-62.0) fl RDW Coeff of Alva (11.0-15.0) % Plt Count (150-400) K/uL MPV (7.40-12.00) fL Neut % (Auto) (48.0-80.0) % Lymph % (Auto) (16.0-40.0) % Leon % (Auto) (0.0-15.0) % Eos % (Auto) (0.0-7.0) % Baso % (Auto) (0.0-1.5) % Neut # (Auto) (1.4-5.7) K/uL Lymph # (Auto) (0.6-2.4) K/uL Leon # (Auto) (0.0-0.8) K/uL Eos # (Auto) (0.0-0.7) K/uL Baso # (Auto) (0.0-0.1) K/uL Nucleated RBC % /100WBC Nucleated RBCs # K/uL INR > 13.83 H* ABG pH 7.41 (7.35-7.45) ABG pCO2 45 (35-45) mmHG ABG pO2 < 30 L* (80-105) mmHG ABG HCO3 29 H (22-26) mEq/L ABG Total CO2 26.0 (23-27) mmol/L ABG Base Excess 3.2 H (-2.0-3.0) ABG Carboxyhemoglobin (0-15) % Sodium (136-148) mmol/L Potassium (3.5-5.1) mmol/L Chloride (98-107) mmol/L Carbon Dioxide (21.0-32.0) mmol/L BUN (7.0-18.0) mg/dL Creatinine (0.8-1.3) mg/dL Est Cr Clr Drug Dosing mL/min Estimated GFR (MDRD) ml/min Glucose (74-106) mg/dL Lactic Acid 3.6 H* (0.4-2.0) mmol/L Calcium (8.5-10.1) mg/dL Magnesium (1.8-2.4) mg/dL Total Bilirubin (0.2-1.0) mg/dL AST (15-37) IU/L ALT (14-63) IU/L Alkaline Phosphatase (46-116) U/L Troponin I (0.000-0.056) ng/mL B-Natriuretic Peptide (<100) PG/ML Total Protein (6.4-8.2) g/dL Albumin (3.4-5.0) g/dL Globulin (2.6-4.0) g/dL Albumin/Globulin Ratio (0.9-1.6) Urine Color Urine Appearance Urine pH (5.0-8.0) Ur Specific Baxter (1.001-1.035) Urine Protein (NEGATIVE) mg/dL Urine Glucose (UA) (NEGATIVE) mg/dL Urine Ketones (NEGATIVE) mg/dL Urine Occult Blood (NEGATIVE) Urine Nitrite (NEGATIVE) Urine Bilirubin (NEGATIVE) Urine Urobilinogen (<2.0) EU/dL Ur Leukocyte Esterase (NEGATIVE) Urine RBC (0-2/HPF) Urine WBC (0-5/HPF) Ur Epithelial Cells (NONE-FEW) Urine Bacteria (NEGATIVE) 12/25/20 12/25/20 12/25/20 Range/Units 13:45 15:09 15:30 WBC (4.0-11.0) K/uL RBC (4.50-5.90) M/uL Hgb (13.0-17.0) g/dL Hct (38.0-50.0) % MCV (80.0-98.0) fL MCH (27.0-32.0) pg MCHC (31.0-37.0) g/dL RDW Std Deviation (28.0-62.0) fl RDW Coeff of Alva (11.0-15.0) % Plt Count (150-400) K/uL MPV (7.40-12.00) fL Neut % (Auto) (48.0-80.0) % Lymph % (Auto) (16.0-40.0) % Leon % (Auto) (0.0-15.0) % Eos % (Auto) (0.0-7.0) % Baso % (Auto) (0.0-1.5) % Neut # (Auto) (1.4-5.7) K/uL Lymph # (Auto) (0.6-2.4) K/uL Leon # (Auto) (0.0-0.8) K/uL Eos # (Auto) (0.0-0.7) K/uL Baso # (Auto) (0.0-0.1) K/uL Nucleated RBC % /100WBC Nucleated RBCs # K/uL INR ABG pH (7.35-7.45) ABG pCO2 (35-45) mmHG ABG pO2 (80-105) mmHG ABG HCO3 (22-26) mEq/L ABG Total CO2 (23-27) mmol/L ABG Base Excess (-2.0-3.0) ABG Carboxyhemoglobin 1.8 (0-15) % Sodium (136-148) mmol/L Potassium (3.5-5.1) mmol/L Chloride (98-107) mmol/L Carbon Dioxide (21.0-32.0) mmol/L BUN (7.0-18.0) mg/dL Creatinine (0.8-1.3) mg/dL Est Cr Clr Drug Dosing mL/min Estimated GFR (MDRD) ml/min Glucose (74-106) mg/dL Lactic Acid (0.4-2.0) mmol/L Calcium (8.5-10.1) mg/dL Magnesium (1.8-2.4) mg/dL Total Bilirubin (0.2-1.0) mg/dL AST (15-37) IU/L ALT (14-63) IU/L Alkaline Phosphatase (46-116) U/L Troponin I 0.064 H* (0.000-0.056) ng/mL B-Natriuretic Peptide (<100) PG/ML Total Protein (6.4-8.2) g/dL Albumin (3.4-5.0) g/dL Globulin (2.6-4.0) g/dL Albumin/Globulin Ratio (0.9-1.6) Urine Color YELLOW Urine Appearance HAZY Urine pH 5.0 (5.0-8.0) Ur Specific Baxter >= 1.030 (1.001-1.035) Urine Protein NEGATIVE (NEGATIVE) mg/dL Urine Glucose (UA) NEGATIVE (NEGATIVE) mg/dL Urine Ketones NEGATIVE (NEGATIVE) mg/dL Urine Occult Blood TRACE-INTACT H (NEGATIVE) Urine Nitrite NEGATIVE (NEGATIVE) Urine Bilirubin SMALL H (NEGATIVE) Urine Urobilinogen 1.0 (<2.0) EU/dL Ur Leukocyte Esterase NEGATIVE (NEGATIVE) Urine RBC 0-2 (0-2/HPF) Urine WBC 0-1 (0-5/HPF) Ur Epithelial Cells RARE (NONE-FEW) Urine Bacteria FEW (NEGATIVE) 12/25/20 Range/Units 17:36 WBC (4.0-11.0) K/uL RBC (4.50-5.90) M/uL Hgb (13.0-17.0) g/dL Hct (38.0-50.0) % MCV (80.0-98.0) fL MCH (27.0-32.0) pg MCHC (31.0-37.0) g/dL RDW Std Deviation (28.0-62.0) fl RDW Coeff of Alva (11.0-15.0) % Plt Count (150-400) K/uL MPV (7.40-12.00) fL Neut % (Auto) (48.0-80.0) % Lymph % (Auto) (16.0-40.0) % Leon % (Auto) (0.0-15.0) % Eos % (Auto) (0.0-7.0) % Baso % (Auto) (0.0-1.5) % Neut # (Auto) (1.4-5.7) K/uL Lymph # (Auto) (0.6-2.4) K/uL Leon # (Auto) (0.0-0.8) K/uL Eos # (Auto) (0.0-0.7) K/uL Baso # (Auto) (0.0-0.1) K/uL Nucleated RBC % /100WBC Nucleated RBCs # K/uL INR ABG pH (7.35-7.45) ABG pCO2 (35-45) mmHG ABG pO2 (80-105) mmHG ABG HCO3 (22-26) mEq/L ABG Total CO2 (23-27) mmol/L ABG Base Excess (-2.0-3.0) ABG Carboxyhemoglobin (0-15) % Sodium (136-148) mmol/L Potassium (3.5-5.1) mmol/L Chloride (98-107) mmol/L Carbon Dioxide (21.0-32.0) mmol/L BUN (7.0-18.0) mg/dL Creatinine (0.8-1.3) mg/dL Est Cr Clr Drug Dosing mL/min Estimated GFR (MDRD) ml/min Glucose (74-106) mg/dL Lactic Acid 3.0 H* (0.4-2.0) mmol/L Calcium (8.5-10.1) mg/dL Magnesium (1.8-2.4) mg/dL Total Bilirubin (0.2-1.0) mg/dL AST (15-37) IU/L ALT (14-63) IU/L Alkaline Phosphatase (46-116) U/L Troponin I (0.000-0.056) ng/mL B-Natriuretic Peptide (<100) PG/ML Total Protein (6.4-8.2) g/dL Albumin (3.4-5.0) g/dL Globulin (2.6-4.0) g/dL Albumin/Globulin Ratio (0.9-1.6) Urine Color Urine Appearance Urine pH (5.0-8.0) Ur Specific Baxter (1.001-1.035) Urine Protein (NEGATIVE) mg/dL Urine Glucose (UA) (NEGATIVE) mg/dL Urine Ketones (NEGATIVE) mg/dL Urine Occult Blood (NEGATIVE) Urine Nitrite (NEGATIVE) Urine Bilirubin (NEGATIVE) Urine Urobilinogen (<2.0) EU/dL Ur Leukocyte Esterase (NEGATIVE) Urine RBC (0-2/HPF) Urine WBC (0-5/HPF) Ur Epithelial Cells (NONE-FEW) Urine Bacteria (NEGATIVE) Mahad Results Last 24 Hours: Microbiology 12/25/20 12:42 Aerobic Blood Culture - Final Blood - Venous - Lab Draw Anaerobic Blood Culture - Final 12/25/20 12:20 Aerobic Blood Culture - Final Blood - Venous Anaerobic Blood Culture - Final Med Orders - Current: Current Medications Vancomycin HCl 1 gm/ Sodium (Chloride) 250 mls @ 250 mls/hr IV Q24H [facility] Last Admin: 12/26/20 05:37 Dose: 250 mls/hr Documented by: Piperacillin Sod/Tazobactam (Sod 3.375 gm/ Sodium Chloride) 50 mls @ 100 mls/hr IV Q8H [facility] Last Admin: 12/26/20 04:21 Dose: 100 mls/hr Documented by: Lorazepam (Lorazepam 2 Mg/Ml Sdv) 1 mg IVPUSH Q2H PRN PRN Reason: Anxiety Last Admin: 12/26/20 10:57 Dose: 1 mg Documented by: Morphine Sulfate (Morphine 2 Mg/Ml Syringe) 1 mg IVPUSH Q2H PRN PRN Reason: Pain Last Admin: 12/26/20 09:53 Dose: 1 mg Documented by: Sodium Chloride (Sodium Chloride 0.9% 10 Ml Syringe) 10 ml FLUSH ASDIRECTED PRN PRN Reason: Keep Vein Open Last Admin: 12/25/20 12:25 Dose: 10 ml Documented by: Sodium Chloride (Sodium Chloride 0.9% 2.5 Ml Syringe) 2.5 ml FLUSH ASDIRECTED PRN PRN Reason: Keep Vein Open Last Admin: 12/25/20 12:25 Dose: 2.5 ml Documented by: Vancomycin HCl (Pharmacy To Dose - Vancomycin) 1 dose .XX ASDIRECTED [facility] Discontinued Medications Albuterol/Ipratropium (Albuterol/Ipratropium 3.0-0.5 Mg/3 Ml Neb Soln) 3 ml NEB ONETIME ONE Stop: 12/25/20 14:57 Last Admin: 12/25/20 15:25 Dose: 3 ml Documented by: Sodium Chloride (Normal Saline) 1,000 mls @ 125 mls/hr IV STAT ONE Stop: 12/25/20 20:17 Last Admin: 12/25/20 12:24 Dose: 125 mls/hr Documented by: Cefepime HCl 2 gm/ Premix 50 mls @ 100 mls/hr IV ONETIME ONE Stop: 12/25/20 13:14 Last Admin: 12/25/20 12:57 Dose: 100 mls/hr Documented by: Vancomycin HCl 1 gm/ Sodium (Chloride) 250 mls @ 250 mls/hr IV ONETIME ONE Stop: 12/25/20 13:59 Last Admin: 12/25/20 13:18 Dose: 250 mls/hr Documented by: Phytonadione 10 mg/ Sodium (Chloride) 51 mls @ 100 mls/hr IV NOW ONE Stop: 12/25/20 13:40 Last Admin: 12/25/20 13:26 Dose: 100 mls/hr Documented by: Sodium Chloride (Normal Saline) 1,000 mls @ 999 mls/hr IV STAT ONE Stop: 12/25/20 14:20 Last Admin: 12/25/20 13:23 Dose: 999 mls/hr Documented by: Sodium Chloride (Normal Saline) 1,000 mls @ 100 mls/hr IV STAT ONE Stop: 12/26/20 00:48 Last Admin: 12/25/20 14:53 Dose: 100 mls/hr Documented by: Piperacillin Sod/Tazobactam (Sod 3.375 gm/ Sodium Chloride) 50 mls @ 100 mls/hr IV Q8H [facility] Last Admin: 12/26/20 00:26 Dose: Not Given Documented by: Sodium Chloride (Normal Saline) 500 mls @ 999 mls/hr IV .BOLUS ONE Stop: 12/25/20 19:45 Last Admin: 12/25/20 20:20 Dose: 999 mls/hr Documented by: Methylprednisolone Sodium Succinate (Methylprednisolone Sodium Succinate 125 Mg/2 Ml Sdv) 125 mg IVPUSH ONETIME ONE Stop: 12/25/20 12:32 Last Admin: 12/25/20 12:42 Dose: 125 mg Documented by: Metoprolol Tartrate (Metoprolol Tartrate 5 Mg/5 Ml Sdv) 5 mg IVPUSH ONETIME ONE Stop: 12/25/20 12:30 Last Admin: 12/25/20 13:26 Dose: Not Given Documented by: Vancomycin HCl (Pharmacy To Dose - Vancomycin) 1 dose .XX ONETIME ONE Stop: 12/25/20 12:46 Last Admin: 12/25/20 13:17 Dose: Not Given Documented by: - Exam General: Lethargic HEENT: Other (Dry mucous membranes) Neck: No: Lymphadenopathy Lungs: Wheezing Cardiovascular: Tachycardia GI/Abdominal Exam: Normal Bowel Sounds, Soft, Non-Tender Psy/Mental Status: Anxious, Agitated - Patient Data Lab Results Last 24 hrs: Laboratory Results - last 24 hr 12/25/20 12/25/20 12/25/20 Range/Units 12:20 12:20 12:20 WBC 16.31 H (4.0-11.0) K/uL RBC 5.51 (4.50-5.90) M/uL Hgb 17.6 H (13.0-17.0) g/dL Hct 49.4 (38.0-50.0) % MCV 89.7 (80.0-98.0) fL MCH 31.9 (27.0-32.0) pg MCHC 35.6 (31.0-37.0) g/dL RDW Std Deviation 47.0 (28.0-62.0) fl RDW Coeff of Alva 14 (11.0-15.0) % Plt Count 117 L (150-400) K/uL MPV 12.30 H (7.40-12.00) fL Neut % (Auto) 94.4 H (48.0-80.0) % Lymph % (Auto) 2.7 L (16.0-40.0) % Leon % (Auto) 2.8 (0.0-15.0) % Eos % (Auto) 0.0 (0.0-7.0) % Baso % (Auto) 0.1 (0.0-1.5) % Neut # (Auto) 15.4 H (1.4-5.7) K/uL Lymph # (Auto) 0.4 L (0.6-2.4) K/uL Leon # (Auto) 0.5 (0.0-0.8) K/uL Eos # (Auto) 0.0 (0.0-0.7) K/uL Baso # (Auto) 0.0 (0.0-0.1) K/uL Nucleated RBC % 0.0 /100WBC Nucleated RBCs # 0 K/uL INR ABG pH (7.35-7.45) ABG pCO2 (35-45) mmHG ABG pO2 (80-105) mmHG ABG HCO3 (22-26) mEq/L ABG Total CO2 (23-27) mmol/L ABG Base Excess (-2.0-3.0) ABG Carboxyhemoglobin (0-15) % Sodium 136 (136-148) mmol/L Potassium 4.2 (3.5-5.1) mmol/L Chloride 97 L (98-107) mmol/L Carbon Dioxide 28.9 (21.0-32.0) mmol/L BUN 68 H (7.0-18.0) mg/dL Creatinine 2.2 H (0.8-1.3) mg/dL Est Cr Clr Drug Dosing 24.91 mL/min Estimated GFR (MDRD) 28.8 ml/min Glucose 117 H (74-106) mg/dL Lactic Acid (0.4-2.0) mmol/L Calcium 9.0 (8.5-10.1) mg/dL Magnesium 3.1 H (1.8-2.4) mg/dL Total Bilirubin 1.5 H (0.2-1.0) mg/dL AST 24 (15-37) IU/L ALT 25 (14-63) IU/L Alkaline Phosphatase 184 H (46-116) U/L Troponin I 0.076 H* (0.000-0.056) ng/mL B-Natriuretic Peptide 354 H (<100) PG/ML Total Protein 6.5 (6.4-8.2) g/dL Albumin 1.6 L (3.4-5.0) g/dL Globulin 4.9 H (2.6-4.0) g/dL Albumin/Globulin Ratio 0.3 L (0.9-1.6) Urine Color Urine Appearance Urine pH (5.0-8.0) Ur Specific Baxter (1.001-1.035) Urine Protein (NEGATIVE) mg/dL Urine Glucose (UA) (NEGATIVE) mg/dL Urine Ketones (NEGATIVE) mg/dL Urine Occult Blood (NEGATIVE) Urine Nitrite (NEGATIVE) Urine Bilirubin (NEGATIVE) Urine Urobilinogen (<2.0) EU/dL Ur Leukocyte Esterase (NEGATIVE) Urine RBC (0-2/HPF) Urine WBC (0-5/HPF) Ur Epithelial Cells (NONE-FEW) Urine Bacteria (NEGATIVE) 12/25/20 12/25/20 12/25/20 Range/Units 12:20 12:20 13:45 WBC (4.0-11.0) K/uL RBC (4.50-5.90) M/uL Hgb (13.0-17.0) g/dL Hct (38.0-50.0) % MCV (80.0-98.0) fL MCH (27.0-32.0) pg MCHC (31.0-37.0) g/dL RDW Std Deviation (28.0-62.0) fl RDW Coeff of Alva (11.0-15.0) % Plt Count (150-400) K/uL MPV (7.40-12.00) fL Neut % (Auto) (48.0-80.0) % Lymph % (Auto) (16.0-40.0) % Leon % (Auto) (0.0-15.0) % Eos % (Auto) (0.0-7.0) % Baso % (Auto) (0.0-1.5) % Neut # (Auto) (1.4-5.7) K/uL Lymph # (Auto) (0.6-2.4) K/uL Leon # (Auto) (0.0-0.8) K/uL Eos # (Auto) (0.0-0.7) K/uL Baso # (Auto) (0.0-0.1) K/uL Nucleated RBC % /100WBC Nucleated RBCs # K/uL INR > 13.83 H* ABG pH 7.41 (7.35-7.45) ABG pCO2 45 (35-45) mmHG ABG pO2 < 30 L* (80-105) mmHG ABG HCO3 29 H (22-26) mEq/L ABG Total CO2 26.0 (23-27) mmol/L ABG Base Excess 3.2 H (-2.0-3.0) ABG Carboxyhemoglobin (0-15) % Sodium (136-148) mmol/L Potassium (3.5-5.1) mmol/L Chloride (98-107) mmol/L Carbon Dioxide (21.0-32.0) mmol/L BUN (7.0-18.0) mg/dL Creatinine (0.8-1.3) mg/dL Est Cr Clr Drug Dosing mL/min Estimated GFR (MDRD) ml/min Glucose (74-106) mg/dL Lactic Acid 3.6 H* (0.4-2.0) mmol/L Calcium (8.5-10.1) mg/dL Magnesium (1.8-2.4) mg/dL Total Bilirubin (0.2-1.0) mg/dL AST (15-37) IU/L ALT (14-63) IU/L Alkaline Phosphatase (46-116) U/L Troponin I (0.000-0.056) ng/mL B-Natriuretic Peptide (<100) PG/ML Total Protein (6.4-8.2) g/dL Albumin (3.4-5.0) g/dL Globulin (2.6-4.0) g/dL Albumin/Globulin Ratio (0.9-1.6) Urine Color Urine Appearance Urine pH (5.0-8.0) Ur Specific Baxter (1.001-1.035) Urine Protein (NEGATIVE) mg/dL Urine Glucose (UA) (NEGATIVE) mg/dL Urine Ketones (NEGATIVE) mg/dL Urine Occult Blood (NEGATIVE) Urine Nitrite (NEGATIVE) Urine Bilirubin (NEGATIVE) Urine Urobilinogen (<2.0) EU/dL Ur Leukocyte Esterase (NEGATIVE) Urine RBC (0-2/HPF) Urine WBC (0-5/HPF) Ur Epithelial Cells (NONE-FEW) Urine Bacteria (NEGATIVE) 12/25/20 12/25/20 12/25/20 Range/Units 13:45 15:09 15:30 WBC (4.0-11.0) K/uL RBC (4.50-5.90) M/uL Hgb (13.0-17.0) g/dL Hct (38.0-50.0) % MCV (80.0-98.0) fL MCH (27.0-32.0) pg MCHC (31.0-37.0) g/dL RDW Std Deviation (28.0-62.0) fl RDW Coeff of Alva (11.0-15.0) % Plt Count (150-400) K/uL MPV (7.40-12.00) fL Neut % (Auto) (48.0-80.0) % Lymph % (Auto) (16.0-40.0) % Leon % (Auto) (0.0-15.0) % Eos % (Auto) (0.0-7.0) % Baso % (Auto) (0.0-1.5) % Neut # (Auto) (1.4-5.7) K/uL Lymph # (Auto) (0.6-2.4) K/uL Leon # (Auto) (0.0-0.8) K/uL Eos # (Auto) (0.0-0.7) K/uL Baso # (Auto) (0.0-0.1) K/uL Nucleated RBC % /100WBC Nucleated RBCs # K/uL INR ABG pH (7.35-7.45) ABG pCO2 (35-45) mmHG ABG pO2 (80-105) mmHG ABG HCO3 (22-26) mEq/L ABG Total CO2 (23-27) mmol/L ABG Base Excess (-2.0-3.0) ABG Carboxyhemoglobin 1.8 (0-15) % Sodium (136-148) mmol/L Potassium (3.5-5.1) mmol/L Chloride (98-107) mmol/L Carbon Dioxide (21.0-32.0) mmol/L BUN (7.0-18.0) mg/dL Creatinine (0.8-1.3) mg/dL Est Cr Clr Drug Dosing mL/min Estimated GFR (MDRD) ml/min Glucose (74-106) mg/dL Lactic Acid (0.4-2.0) mmol/L Calcium (8.5-10.1) mg/dL Magnesium (1.8-2.4) mg/dL Total Bilirubin (0.2-1.0) mg/dL AST (15-37) IU/L ALT (14-63) IU/L Alkaline Phosphatase (46-116) U/L Troponin I 0.064 H* (0.000-0.056) ng/mL B-Natriuretic Peptide (<100) PG/ML Total Protein (6.4-8.2) g/dL Albumin (3.4-5.0) g/dL Globulin (2.6-4.0) g/dL Albumin/Globulin Ratio (0.9-1.6) Urine Color YELLOW Urine Appearance HAZY Urine pH 5.0 (5.0-8.0) Ur Specific Baxter >= 1.030 (1.001-1.035) Urine Protein NEGATIVE (NEGATIVE) mg/dL Urine Glucose (UA) NEGATIVE (NEGATIVE) mg/dL Urine Ketones NEGATIVE (NEGATIVE) mg/dL Urine Occult Blood TRACE-INTACT H (NEGATIVE) Urine Nitrite NEGATIVE (NEGATIVE) Urine Bilirubin SMALL H (NEGATIVE) Urine Urobilinogen 1.0 (<2.0) EU/dL Ur Leukocyte Esterase NEGATIVE (NEGATIVE) Urine RBC 0-2 (0-2/HPF) Urine WBC 0-1 (0-5/HPF) Ur Epithelial Cells RARE (NONE-FEW) Urine Bacteria FEW (NEGATIVE) 12/25/20 Range/Units 17:36 WBC (4.0-11.0) K/uL RBC (4.50-5.90) M/uL Hgb (13.0-17.0) g/dL Hct (38.0-50.0) % MCV (80.0-98.0) fL MCH (27.0-32.0) pg MCHC (31.0-37.0) g/dL RDW Std Deviation (28.0-62.0) fl RDW Coeff of Alva (11.0-15.0) % Plt Count (150-400) K/uL MPV (7.40-12.00) fL Neut % (Auto) (48.0-80.0) % Lymph % (Auto) (16.0-40.0) % Leon % (Auto) (0.0-15.0) % Eos % (Auto) (0.0-7.0) % Baso % (Auto) (0.0-1.5) % Neut # (Auto) (1.4-5.7) K/uL Lymph # (Auto) (0.6-2.4) K/uL Leon # (Auto) (0.0-0.8) K/uL Eos # (Auto) (0.0-0.7) K/uL Baso # (Auto) (0.0-0.1) K/uL Nucleated RBC % /100WBC Nucleated RBCs # K/uL INR ABG pH (7.35-7.45) ABG pCO2 (35-45) mmHG ABG pO2 (80-105) mmHG ABG HCO3 (22-26) mEq/L ABG Total CO2 (23-27) mmol/L ABG Base Excess (-2.0-3.0) ABG Carboxyhemoglobin (0-15) % Sodium (136-148) mmol/L Potassium (3.5-5.1) mmol/L Chloride (98-107) mmol/L Carbon Dioxide (21.0-32.0) mmol/L BUN (7.0-18.0) mg/dL Creatinine (0.8-1.3) mg/dL Est Cr Clr Drug Dosing mL/min Estimated GFR (MDRD) ml/min Glucose (74-106) mg/dL Lactic Acid 3.0 H* (0.4-2.0) mmol/L Calcium (8.5-10.1) mg/dL Magnesium (1.8-2.4) mg/dL Total Bilirubin (0.2-1.0) mg/dL AST (15-37) IU/L ALT (14-63) IU/L Alkaline Phosphatase (46-116) U/L Troponin I (0.000-0.056) ng/mL B-Natriuretic Peptide (<100) PG/ML Total Protein (6.4-8.2) g/dL Albumin (3.4-5.0) g/dL Globulin (2.6-4.0) g/dL Albumin/Globulin Ratio (0.9-1.6) Urine Color Urine Appearance Urine pH (5.0-8.0) Ur Specific Baxter (1.001-1.035) Urine Protein (NEGATIVE) mg/dL Urine Glucose (UA) (NEGATIVE) mg/dL Urine Ketones (NEGATIVE) mg/dL Urine Occult Blood (NEGATIVE) Urine Nitrite (NEGATIVE) Urine Bilirubin (NEGATIVE) Urine Urobilinogen (<2.0) EU/dL Ur Leukocyte Esterase (NEGATIVE) Urine RBC (0-2/HPF) Urine WBC (0-5/HPF) Ur Epithelial Cells (NONE-FEW) Urine Bacteria (NEGATIVE) Result Diagrams: 12/25/20 12:20 12/25/20 12:20 Mahad Results Last 24 hrs: Microbiology 12/25/20 12:42 Aerobic Blood Culture - Final Blood - Venous - Lab Draw Anaerobic Blood Culture - Final 12/25/20 12:20 Aerobic Blood Culture - Final Blood - Venous Anaerobic Blood Culture - Final Sepsis Event Note - Evaluation Sepsis Screening Result: Severe Sepsis Risk - Focused Exam Vital Signs: Vital Signs Temp Pulse Resp BP Pulse Ox 12/26/20 08:51 96.4 F L 132 H 32 H 103/83 90 L - Problem List & Annotations (1) Pneumonia SNOMED Code(s): 764819071 Code(s): J18.9 - PNEUMONIA, UNSPECIFIED ORGANISM Status: Acute Priority: High Current Visit: No Qualifiers: Pneumonia type: due to unspecified organism Laterality: right Lung location: lower lobe of lung (2) Atrial fibrillation with RVR SNOMED Code(s): 082230771548982 Code(s): I48.91 - UNSPECIFIED ATRIAL FIBRILLATION Status: Acute Current Visit: Yes (3) Sepsis associated hypotension SNOMED Code(s): 13856714 Code(s): A41.9 - SEPSIS, UNSPECIFIED ORGANISM; I95.9 - HYPOTENSION, UNSPECIFIED Status: Acute Current Visit: Yes (4) Renal insufficiency SNOMED Code(s): 347849450, 254602002 Code(s): N28.9 - DISORDER OF KIDNEY AND URETER, UNSPECIFIED Status: Acute Current Visit: Yes - Problem List Review Problem List Initiated/Reviewed/Updated: Yes - My Orders Last 24 Hours: My Active Orders 12/25/20 Dinner Regular Diet [DIET] 12/25/20 17:28 Morphine 1 mg IVPUSH Q2H PRN 12/25/20 17:30 LORazepam [Ativan] 1 mg IVPUSH Q2H PRN Pharmacy to Dose - Vancomycin 1 dose .XX ASDIRECTED 12/25/20 17:32 Consult to Hospice [CONS] Routine 12/25/20 21:00 Piperacillin/Tazobactam [Piperacil-Tazobact] 3.375 gm Sodium Chloride 0.9% [Normal Saline AdvBag] 50 ml IV Q8H 12/26/20 06:00 Vancomycin 1 gm Sodium Chloride 0.9% [Normal Saline AdvBag] 250 ml IV Q24H - Plan Plan:: 1. Pneumonia -We will continue with vancomycin 1 g every 24 hours and Zosyn 3.375 g every 8 hours, discussions will commence with the family in regards to discontinuing antibiotics if the patient is to remain on comfort care and hospice measures. -Continue morphine 1 mg every 2 hours for pain and Ativan 1 mg every 2 hours for anxiety -Hospice is discussing future measures with the family and we will follow recommendations 2. A. fib with RVR -The patient is on hospice and as a result we will not be treating any co nditions 3. SANGEETA -The patient is on hospice and as a result we will not be treating any conditions <Mee Valle - Last Filed: 12/26/20 16:38> - General Info Subjective Update: I have seen and evaluated the patient and agree with the residents note unless specified in my note - Patient Data Vitals - Most Recent: Last Vital Signs Temp 35.8 C L 12/26/20 08:51 Pulse 132 H 12/26/20 08:51 Resp 32 H 12/26/20 08:51 BP 103/83 12/26/20 08:51 Pulse Ox 90 L 12/26/20 08:51 I&O - Last 24 Hours: Intake & Output 12/26/20 12/26/20 12/26/20 06:59 14:59 22:59 Intake Total 100 Output Total 500 Balance -400 Lab Results Last 24 Hours: Laboratory Results - last 24 hr 12/25/20 Range/Units 17:36 Lactic Acid 3.0 H* (0.4-2.0) mmol/L Mahad Results Last 24 Hours: Microbiology 12/25/20 12:42 Aerobic Blood Culture - Final Blood - Venous - Lab Draw Anaerobic Blood Culture - Final 12/25/20 12:20 Aerobic Blood Culture - Final Blood - Venous Anaerobic Blood Culture - Final Med Orders - Current: Current Medications Lorazepam (Lorazepam 2 Mg/Ml Sdv) 1 mg IVPUSH Q2H PRN PRN Reason: Anxiety Last Admin: 12/26/20 10:57 Dose: 1 mg Documented by: Morphine Sulfate (Morphine 2 Mg/Ml Syringe) 1 mg IVPUSH Q2H PRN PRN Reason: Pain Last Admin: 12/26/20 09:53 Dose: 1 mg Documented by: Sodium Chloride (Sodium Chloride 0.9% 10 Ml Syringe) 10 ml FLUSH ASDIRECTED PRN PRN Reason: Keep Vein Open Last Admin: 12/25/20 12:25 Dose: 10 ml Documented by: Sodium Chloride (Sodium Chloride 0.9% 2.5 Ml Syringe) 2.5 ml FLUSH ASDIRECTED PRN PRN Reason: Keep Vein Open Last Admin: 12/25/20 12:25 Dose: 2.5 ml Documented by: Discontinued Medications Albuterol/Ipratropium (Albuterol/Ipratropium 3.0-0.5 Mg/3 Ml Neb Soln) 3 ml NEB ONETIME ONE Stop: 12/25/20 14:57 Last Admin: 12/25/20 15:25 Dose: 3 ml Documented by: Sodium Chloride (Normal Saline) 1,000 mls @ 125 mls/hr IV STAT ONE Stop: 12/25/20 20:17 Last Admin: 12/25/20 12:24 Dose: 125 mls/hr Documented by: Cefepime HCl 2 gm/ Premix 50 mls @ 100 mls/hr IV ONETIME ONE Stop: 12/25/20 13:14 Last Admin: 12/25/20 12:57 Dose: 100 mls/hr Documented by: Vancomycin HCl 1 gm/ Sodium (Chloride) 250 mls @ 250 mls/hr IV ONETIME ONE Stop: 12/25/20 13:59 Last Admin: 12/25/20 13:18 Dose: 250 mls/hr Documented by: Phytonadione 10 mg/ Sodium (Chloride) 51 mls @ 100 mls/hr IV NOW ONE Stop: 12/25/20 13:40 Last Admin: 12/25/20 13:26 Dose: 100 mls/hr Documented by: Sodium Chloride (Normal Saline) 1,000 mls @ 999 mls/hr IV STAT ONE Stop: 12/25/20 14:20 Last Admin: 12/25/20 13:23 Dose: 999 mls/hr Documented by: Sodium Chloride (Normal Saline) 1,000 mls @ 100 mls/hr IV STAT ONE Stop: 12/26/20 00:48 Last Admin: 12/25/20 14:53 Dose: 100 mls/hr Documented by: Piperacillin Sod/Tazobactam (Sod 3.375 gm/ Sodium Chloride) 50 mls @ 100 mls/hr IV Q8H [facility] Last Admin: 12/26/20 00:26 Dose: Not Given Documented by: Vancomycin HCl 1 gm/ Sodium (Chloride) 250 mls @ 250 mls/hr IV Q24H [facility] Last Admin: 12/26/20 05:37 Dose: 250 mls/hr Documented by: Sodium Chloride (Normal Saline) 500 mls @ 999 mls/hr IV .BOLUS ONE Stop: 12/25/20 19:45 Last Admin: 12/25/20 20:20 Dose: 999 mls/hr Documented by: Piperacillin Sod/Tazobactam (Sod 3.375 gm/ Sodium Chloride) 50 mls @ 100 mls/hr IV Q8H [facility] Last Admin: 12/26/20 14:14 Dose: Not Given Documented by: Methylprednisolone Sodium Succinate (Methylprednisolone Sodium Succinate 125 M g/2 Ml Sdv) 125 mg IVPUSH ONETIME ONE Stop: 12/25/20 12:32 Last Admin: 12/25/20 12:42 Dose: 125 mg Documented by: Metoprolol Tartrate (Metoprolol Tartrate 5 Mg/5 Ml Sdv) 5 mg IVPUSH ONETIME ONE Stop: 12/25/20 12:30 Last Admin: 12/25/20 13:26 Dose: Not Given Documented by: Vancomycin HCl (Pharmacy To Dose - Vancomycin) 1 dose .XX ONETIME ONE Stop: 12/25/20 12:46 Last Admin: 12/25/20 13:17 Dose: Not Given Documented by: Vancomycin HCl (Pharmacy To Dose - Vancomycin) 1 dose .XX ASDIRECTED STALIN - Patient Data Lab Results Last 24 hrs: Laboratory Results - last 24 hr 12/25/20 Range/Units 17:36 Lactic Acid 3.0 H* (0.4-2.0) mmol/L Result Diagrams: 12/25/20 12:20 12/25/20 12:20 Mahad Results Last 24 hrs: Microbiology 12/25/20 12:42 Aerobic Blood Culture - Final Blood - Venous - Lab Draw Anaerobic Blood Culture - Final 12/25/20 12:20 Aerobic Blood Culture - Final Blood - Venous Anaerobic Blood Culture - Final Sepsis Event Note - Focused Exam Vital Signs: Vital Signs Temp Pulse Resp BP Pulse Ox 12/26/20 08:51 35.8 C L 132 H 32 H 103/83 90 L - Problem List & Annotations (1) Palliative care status SNOMED Code(s): 353215023 Code(s): Z51.5 - ENCOUNTER FOR PALLIATIVE CARE Status: Acute Current Visit: Yes (2) Palliative care patient SNOMED Code(s): 672023036, 058200092 Code(s): Z51.5 - ENCOUNTER FOR PALLIATIVE CARE Status: Acute Current Visit: Yes - My Orders Last 24 Hours: My Active Orders 12/25/20 21:29 Telemetry Monitoring [Cardiac Monitoring] [RC] Q8H - Plan Plan:: I have seen and evaluated the patient and agree with the residents note unless specified in my note
--- NOTE | 2020-12-26 15:15 | PCM.SN.2 ---
- Free Text/Narrative Note: I have spoken to patient's at bedside on admission as well as the following day in great detail. Patient is currently on comfort care palliative measures for end-of-life care. Patient came in with septic shock due to pneumonia/loculated effusion. Patient also had elevated troponins. At that time it was deemed that patient needs higher level of care and possibility of transfer and insertion of central line was discussed with the patient and the family but the patient as well as the family were not keen on any aggressive care. They did not want to be transferred to another facility. They want a central line or vasopressors or any resuscitation meds except for IV fluids and IV antibiotics. During the course in the ER patient became increasingly anxious and upon my encounter requested me to start him on comfort care measures but continue the IV fluids and IV antibiotics overnight. I honored her request and patient was transferred to the floors with comfort care measures with IV fluids and IV antibiotics were continued along with the oxygenation support via nasal cannula. This morning patient was more anxious and agitated and has received comfort meds. I again spoke to patient's this morning and explained to her that patient likely is towards the end of his life. Hospice reportedly has talked with the family and they are in the process of shifting the patient to home on home hospice although that might take another 24 to 48 hours which I necessarily do not believe patient has given his current clinical status. Stopping of life-prolonging medications including IV antibiotics and IV fluids will discussed with at bedside, she requests to stop the antibiotics and fluids. Patient has severe cardiomyopathy and IV fluids will ultimately result in him being in more respiratory distress due to pulmonary edema which we would like to avoid at this time as the goals of care are comfort/palliative in nature. Appropriate counseling was provided to the . She was very appreciative and thankful for the update and the care. She is waiting for her daughter to arrive from [place]. Time Documentation
[2020-12-26] MEDS ORDERED: Albuterol/Ipratropium 3.0-0.5 MG/3 ML Neb Soln NEB PRN (22:05)
[2020-12-27] MEDS: LORazepam 2 MG/ML SDV IVPUSH PRN ×2 (03:08→10:25)
[2020-12-27] MEDS: Morphine 2 MG/ML SYRINGE IVPUSH PRN (06:29)
[2020-12-27] MEDS ORDERED: Sodium Chloride 0.9% 1,000 ML IV SCH ×2 (12:00→12:45)
--- NOTE | 2020-12-27 12:00 | PCM.DCSUM1 ---
Discharge Summary - Discharge Data Discharge Disposition: Home, Self-Care 01 Condition: Stable - Referral to Home Health Primary Care Physician: Jim Mandel MD - Discharge Diagnosis/Problem(s) (1) Palliative care status SNOMED Code(s): 113604739 ICD Code: Z51.5 - ENCOUNTER FOR PALLIATIVE CARE Status: Acute Current Visit: Yes (2) Palliative care patient SNOMED Code(s): 872457027, [id number] ICD Code: Z51.5 - ENCOUNTER FOR PALLIATIVE CARE Status: Acute Current Visit: Yes - Patient Summary/Data Consults: Consultations 12/25/20 17:32 Consult to Hospice [CONS] Routine - Discharge Plan Home Medications: Home Meds Aspirin [Ecotrin] 81 mg PO DAILY 11/15/14 [History] Citalopram [Celexa] 20 mg PO DAILY 11/15/14 [History] Losartan [Cozaar] 50 mg PO BEDTIME 11/15/14 [History] Simvastatin 40 mg PO BEDTIME 11/15/14 [History] Terazosin [Hytrin] 2 mg PO BEDTIME 11/15/14 [History] Metoprolol Tartrate [Lopressor] 100 mg PO BID 11/17/14 [History] Multivit-Min/FA/Lycopen/Lutein [Centrum Silver Tablet] 1 tab PO DAILY 11/17/14 [History] Spironolactone [Aldactone] 25 mg PO DAILY 02/19/17 [History] Albuterol Sulfate [Proair Respiclick] 90 mcg IH Q4H PRN 12/11/20 [History] Furosemide 20 mg PO DAILY 12/11/20 [History] Warfarin Sodium [Jantoven] 2 mg PO [id number] 12/11/20 [History] Warfarin Sodium [Jantoven] 3 mg PO MOTH 12/11/20 [History] Dextromethorphan/guaiFENesin [Robitussin DM] 10 ml PO Q4H PRN #1 bottle 12/13/20 [Rx] dexAMETHasone [Dexamethasone] 6 mg PO DAILY #5 tablet 12/13/20 [Rx] Referrals: Jim Mandel MD [Primary Care Provider] - - Patient Data Vitals - Most Recent: Last Vital Signs Temp 36.1 C 12/26/20 20:22 Pulse 119 H 12/26/20 20:22 Resp 33 H 12/26/20 20:22 BP 83/47 L 12/26/20 20:22 Pulse Ox 88 L 12/26/20 20:22 Weight - Most Recent: 68.039 kg I&O - Last 24 hours: Intake & Output 12/26/20 12/27/20 12/27/20 22:59 06:59 14:59 Output Total 450 Balance -450 MARSHALL Results - Last 24 hrs: Microbiology 12/25/20 12:42 Blood Culture Identification Panel - Preliminary Blood Gram Positive Cocci In Chains 12/25/20 12:20 Blood Culture Identification Panel - Preliminary Blood Gram Positive Cocci In Chains Med Orders - Current: Current Medications Albuterol/Ipratropium (Albuterol/Ipratropium 3.0-0.5 Mg/3 Ml Neb Soln) 3 ml NEB Q2H PRN PRN Reason: Shortness of Breath Sodium Chloride (Normal Saline) 1,000 mls @ 999 mls/hr IV ASDIRECTED [facility]ALIN Lorazepam (Lorazepam 2 Mg/Ml Sdv) 1 mg IVPUSH Q2H PRN PRN Reason: Anxiety Last Admin: 12/27/20 10:25 Dose: 1 mg Documented by: Morphine Sulfate (Morphine 2 Mg/Ml Syringe) 1 mg IVPUSH Q2H PRN PRN Reason: Pain Last Admin: 12/27/20 06:29 Dose: 1 mg Documented by: Sodium Chloride (Sodium Chloride 0.9% 10 Ml Syringe) 10 ml FLUSH ASDIRECTED PRN PRN Reason: Keep Vein Open Last Admin: 12/25/20 12:25 Dose: 10 ml Documented by: Sodium Chloride (Sodium Chloride 0.9% 2.5 Ml Syringe) 2.5 ml FLUSH ASDIRECTED PRN PRN Reason: Keep Vein Open Last Admin: 12/25/20 12:25 Dose: 2.5 ml Documented by: Discontinued Medications Albuterol/Ipratropium (Albuterol/Ipratropium 3.0-0.5 Mg/3 Ml Neb Soln) 3 ml NEB ONETIME ONE Stop: 12/25/20 14:57 Last Admin: 12/25/20 15:25 Dose: 3 ml Documented by: Sodium Chloride (Normal Saline) 1,000 mls @ 125 mls/hr IV STAT ONE Stop: 12/25/20 20:17 Last Admin: 12/25/20 12:24 Dose: 125 mls/hr Documented by: Cefepime HCl 2 gm/ Premix 50 mls @ 100 mls/hr IV ONETIME ONE Stop: 12/25/20 13:14 Last Admin: 12/25/20 12:57 Dose: 100 mls/hr Documented by: Vancomycin HCl 1 gm/ Sodium (Chloride) 250 mls @ 250 mls/hr IV ONETIME ONE Stop: 12/25/20 13:59 Last Admin: 12/25/20 13:18 Dose: 250 mls/hr Documented by: Phytonadione 10 mg/ Sodium (Chloride) 51 mls @ 100 mls/hr IV NOW ONE Stop: 12/25/20 13:40 Last Admin: 12/25/20 13:26 Dose: 100 mls/hr Documented by: Sodium Chloride (Normal Saline) 1,000 mls @ 999 mls/hr IV STAT ONE Stop: 12/25/20 14:20 Last Admin: 12/25/20 13:23 Dose: 999 mls/hr Documented by: Sodium Chloride (Normal Saline) 1,000 mls @ 100 mls/hr IV STAT ONE Stop: 12/26/20 00:48 Last Admin: 12/25/20 14:53 Dose: 100 mls/hr Documented by: Piperacillin Sod/Tazobactam (Sod 3.375 gm/ Sodium Chloride) 50 mls @ 100 mls/hr IV Q8H [facility] Last Admin: 12/26/20 00:26 Dose: Not Given Documented by: Vancomycin HCl 1 gm/ Sodium (Chloride) 250 mls @ 250 mls/hr IV Q24H [facility] Last Admin: 12/26/20 05:37 Dose: 250 mls/hr Documented by: Sodium Chloride (Normal Saline) 500 mls @ 999 mls/hr IV .BOLUS ONE Stop: 12/25/20 19:45 Last Admin: 12/25/20 20:20 Dose: 999 mls/hr Documented by: Piperacillin Sod/Tazobactam (Sod 3.375 gm/ Sodium Chloride) 50 mls @ 100 mls/hr IV Q8H [facility] Last Admin: 12/26/20 14:14 Dose: Not Given Documented by: Methylprednisolone Sodium Succinate (Methylprednisolone Sodium Succinate 125 Mg/2 Ml Sdv) 125 mg IVPUSH ONETIME ONE Stop: 12/25/20 12:32 Last Admin: 12/25/20 12:42 Dose: 125 mg Documented by: Metoprolol Tartrate (Metoprolol Tartrate 5 Mg/5 Ml Sdv) 5 mg IVPUSH ONETIME ONE Stop: 12/25/20 12:30 Last Admin: 12/25/20 13:26 Dose: Not Given Documented by: Vancomycin HCl (Pharmacy To Dose - Vancomycin) 1 dose .XX ONETIME ONE Stop: 12/25/20 12:46 Last Admin: 12/25/20 13:17 Dose: Not Given Documented by: Vancomycin HCl (Pharmacy To Dose - Vancomycin) 1 dose .XX ASDIRECTED [facility]IN
[2020-12-27 13:44] VITALS: BP 103/69; PULSE 133
== END 2020-12-27 14:15 | disposition hospice, home (50) | DRG 871 ==
LOC: MW.ED 12:06 → MW.MS 16:27
PROVIDERS: ADMIT Student in an Organized Health Care Education/Training Program; ATTEND Student in an Organized Health Care Education/Training Program
DX: A41.9 Sepsis, unspecified organism (principal); U07.1 COVID-19; J12.89 Other viral pneumonia; J18.9 Pneumonia, unspecified organism; N17.9 Acute kidney failure, unspecified; D68.8 Other specified coagulation defects; J96.01 Acute respiratory failure with hypoxia; H35.30 Unspecified macular degeneration; J44.0 Chronic obstructive pulmonary disease with (acute) lower respiratory infection; Z66 Do not resuscitate; Z51.5 Encounter for palliative care; E78.5 Hyperlipidemia, unspecified; I48.91 Unspecified atrial fibrillation; K21.9 Gastro-esophageal reflux disease without esophagitis; E78.00 Pure hypercholesterolemia, unspecified; N28.9 Disorder of kidney and ureter, unspecified; Z79.82 Long term (current) use of aspirin; Z79.899 Other long term (current) drug therapy; I11.0 Hypertensive heart disease with heart failure; I50.9 Heart failure, unspecified; I25.10 Atherosclerotic heart disease of native coronary artery without angina pectoris; Z95.810 Presence of automatic (implantable) cardiac defibrillator; Z79.01 Long term (current) use of anticoagulants; Z86.16 Personal history of COVID-19; Z95.1 Presence of aortocoronary bypass graft; Z87.01 Personal history of pneumonia (recurrent); Z90.89 Acquired absence of other organs
CPT/HCPCS: 36415; 36600; 71045; 80053; 81001; 82375; 82803; 83605; 83735; 83880; 84484 ×2; 85025; 85610; 87040 ×2; 93005; 94660; 96365; 96367; 96375; 99285; J0692; J2930; J3370; J3430; J7030 ×3; J7050; 87077; 87186; J2060; J2270; J2543; J7040; J7620-GY